=== PATIENT | female | born 1955 | race Caucasian/White ===

== ENCOUNTER 2024-11-30 17:11 | Outpatient (OUT) | payer BC, SELFPAY ==
--- NOTE | 2024-11-30 17:32 | XR_ITS ---
[facility] [place] [id number] Patient Name: ASTON EVERETT MRN: [id number] date: 1955 Sex: F Assigned Patient Location: [facility] Current Patient Location: [facility] Accession/Order Number: [id number] Exam Date: 11/30/2024 21:47 Report Date: 11/30/2024 21:48 At the request of: NENITA LARSEN Procedure: XR knee LUISITO 3V 2 views both knees Comparison right 02/07/2018 Extensive right patellofemoral degeneration. Moderate right medial joint space narrowing. Comment mild patellofemoral and medial joint space narrowing in the left. Bilateral marginal spurring. No significant joint effusion. Adequate alignment. No acute bony findings. Unremarkable soft tissues. 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 Impression dictated by: Musa Nicole M.D.11/30/2024 9:48 PM Dictation Location: [place] [id number] Electronically authenticated by: [id number] Date: 11/30/2024 21:48
== END 2024-11-30 17:12 | disposition home or self-care (01) ==
LOC: RAD 17:17
PROVIDERS: PCP Family Medicine; Visit Provider Internal Medicine Rheumatology
DX: M25.561 Pain in right knee (principal); M25.562 Pain in left knee; M17.0 Bilateral primary osteoarthritis of knee
CPT/HCPCS: 73562

== ENCOUNTER 2025-03-10 07:48 | Outpatient (OUT) | payer BC, SELFPAY ==
--- OUTSIDE RECORDS SUMMARY | 2025-03-10 08:06 | XMS_ITS | CCD ---
Author Organization [facility] Care Team Providers Care Flare Maker Name Role Phone Unavailable Primary Care Provider Unavailabl e MISC, DR HUBBARD Consulting Unavailable SHORTOMAR Primary Care Unavailable MISC, DR HUBBARD Admitting Unavailable MISC, DR HUBBARD Attending Unavailable MISC, DR HUBBARD Consulting Unavailable SHORT OMAR Primary Care Unavailable MISC, DR HUBBARD Admitting Unavailable MISC, DR HUBBARD Attending Unavailable MISC, DR HUBBARD Admitting Unavailable SHORTOMAR Primary Care Unavailable EKWOK, DR TRACY Bateman Consulting Unavailable MISC, DR HUBBARD Attending Unavailable MISC, DR HUBBARD Consulting Unavailable MD Timmy Larsen Attending Provider Shaila Cordova DO Unavailable [phone] Timmy Larsen Admitting Unavailable Timmy Larsen Attending Unavailable Shaila Cordova Primary Care Physician Shaila Cordova MD Primary Care Provider Shaila Cordova Admitting Unavailable Shaila Cordova Attending Unavailable Shaila Cordova Referring Unavailable Vilma Mantilla Attending Unavaila Vilma Bee Referring Unavaila ble Sarminjarrett, Vilma Talal Admitting Unavaila ble Jose Rafael, Vilma Hawkinsal Attending Unavaila Vilma Bee Attending Unavailnadia Cordova MD, Shaila Primary Care Provider [phone] KINGSLEY GUIDO Attending Unavailable KINGSLEY GUIDO Attending Unavailable KINGSLEY GUIDO Attending Unavailable APOLONIA JAMES Attending Unavailable NENITA LARSEN Referring Unavailable KINGSLEY GUIDO Attending Unavailable KINGSLEY GUIDO Attending Unavailable APOLONIA JAMES Attending Unavailable APOLONIA JAMES Referring Unavailable ELLE SPIVEY Attending Unavailable Allergies Allergy Classification Reported Allergen(s) Allergy Type Date of Onset Reaction(s) Facility Opioid Agonists (1 source) Codeine Drug Allergy [facility] Repository (18 sources) Cephalexin Drug Allergy 2 Other: See Comments, Unknown [facility] Work Phone: (1 source) Penicillins Drug Allergy 2 Other: See Comments [facility] Work Phone: (20 sources) Codeine; Translations: [codeine] Drug Allergy 3 [facility] (17 sources) Penicillins Drug Allergy 2 Unknown [facility] Medications Current Medications Medication Drug Class(es) Dates Sig (Normalized) Sig (Original) Acetaminophen (4 sources) Start: 11-04-2020 acetaminophen 1,000 mg, TID, Refills(s) 0, Pain Start Date: 11/04/20 Status: Ordered Repeat number: 1 Start: 11-04-2020 acetaminophen 1,000 mg, TID, Refills(s) 0 Start Date: 11/04/20 Status: Ordered Repeat number: 1 Start: 11-04-2020 acetaminophen 1,000 mg, TID, Refills(s) 0 Start Date: 11/04/20 Status: Ordered amLODIPine 5 mg oral tablet (9 sources) Dihydropyridine Calcium Channel Kendrick Start: 12-05-2024 take 1 tablet by mouth once daily amLODIPine (Norvasc) 5 MG tablet Take 5 mg by mouth Daily 12/05/2024 Active celecoxib 200 mg oral capsule (18 sources) Nonsteroidal Anti-inflammatory Drug Start: 01-09-2024 take 1 capsule by mouth in the morning celecoxib (CeleBREX) 200 MG capsule Take 200 mg by mouth in the morning and 200 mg before bedtime. 01/09/2024 Active cholecalciferol 0.05 mg oral capsule (8 sources) Vitamin D cholecalciferol (Vitamin D-3) 50 MCG (1999) capsule Vitamin D Active cyclobenzaprine hydrochloride 10 mg oral tablet (1 source) Muscle Relaxant Start: 11-04-2020 take 1 tablet by mouth at bedtime as needed for muscle spasms cyclobenzaprine 10 mg Tab 10 mg = 1 tab(s), Oral, Bedtime, PRN for spasm, # 30 tab(s), Refills(s) 0 Start Date: 11/04/20 Status: Ordered etodolac 500 mg oral tablet (8 sources) Nonsteroidal Anti-inflammatory Drug Start: 12-01-2024 take 1 tablet by mouth in the morning etodolac (Lodine) 500 MG tablet Take 500 mg by mouth in the morning and 500 mg before bedtime. 12/01/2024 Active famotidine 20 mg oral tablet (1 source) Histamine-2 Receptor Antagonist Start: 11-05-2020 take 1 tablet by mouth twice daily Pepcid 20 mg Tab 20 mg = 1 tab(s), Oral, BID, # 60 tab(s), Refills(s) 0 Start Date: 11/05/20 Status: Ordered hydroCHLOROthiazide 12.5 mg oral tablet (2 sources) Thiazide Diuretic Start: 11-04-2020 take 12.5 mg by mouth once daily hydrochlorothiazide 12.5 mg, Oral, Daily, Refills(s) 0 Start Date: 11/04/20 Status: Ordered Start: 11-04-2020 hydrochlorothi azide Oral, Daily, Refills(s) 0 Start Date: 11/04/20 Status: Ordered leflunomide 20 mg oral tablet (20 sources) Antirheumatic Agent Start: 01-16-2023 take 1 tablet by mouth once daily leflunomide (Arava) 20 MG tablet Take 20 mg by mouth Daily 01/16/2023 Active lisinopril 40 mg oral tablet (20 sources) Angiotensin Converting Enzyme Inhibitor Start: 04-16-2024 take 1 tablet by mouth once daily lisinopril 40 MG tablet Take 40 mg by mouth Daily 04/16/2024 Active Start: 07-10-2022 take 1 tablet by nolberto th in the morning lisinopril 20 MG tablet Take 20 mg by mouth in the morning. 07/10/2022 Active metFORMIN hydrochloride 500 mg oral tablet (1 source) Biguanide Start: 11-04-2020 take 500 mg by mouth once daily metformin 500 mg, Oral, Daily, Refills(s) 0 Start Date: 11/04/20 Status: Ordered Multiple Vitamins-Minerals (multivitamin with iron-minerals) liquid (8 sources) Multiple Vitamins-Minerals (multivitamin with iron-minerals) liquid Take by mouth Daily Active nabumetone 750 mg oral tablet (2 sources) Nonsteroidal Anti-inflammatory Drug Start: 11-24-2024 take 1 tablet by mouth in the morning nabumetone (Relafen) 750 MG tablet Take 750 mg by mouth in the morning and 750 mg before bedtime. 11/24/2024 Active polyethylene glycol 3350 [id number] mg / potassium chloride 1480 mg / sodium bicarbonate 5720 mg / sodium chloride 22328 mg powder for oral solution (1 source) Osmotic Laxative Start: 11-23-2024 NuLYTELY [place] oral powder for reconstitution See Instructions, 1 EA, Refill(s) 0, follow up physicians insctructions, [facility]/pharm[facility] #[id number], 172, cm, 11/23/24 8:31:00 EDT, Height/Length Dosing, 95.3, kg, 11/23/24 8:31:00 EDT, Weight Dosing Start Date: 11/23/24 Status: Ordered Quantity: 1.0 Unit: EA Repeat number: 1 Prednisolon-Moxiflo x-Bromfenac 1-0.5-0.075 % solution (17 sources) Start: 04-21-2024 Prednisolon-Moxiflo x-Bromfenac 1-0.5-0.075 % solution Indications: Cortical age-related cataract of both eyes Administer 1 drop into affected eye(s) in the morning and 1 drop at noon and 1 drop in the evening and 1 drop before bedtime. 10 mL 1 04/21/2024 Active psyllium 3400 mg powder for oral suspension (3 sources) Start: 11-23-2024 Metamucil 3.4 g/5.2 g oral powder 3.4 gram, Oral, TID, PRN for constipation, # 1,042 gram, Refills(s) 3, Pharmacy: [facility]/pharmacy #[id number], 172, cm, 11/23/24 8:31:00 EDT, Height/Length Dosing, 95.3, kg, 11/23/24 8:31:00 EDT, Weight Dosing Start Date: 11/23/24 Status: Ordered Quantity: 1042.0 Unit: g Repeat number: 4 Completed/Discontinued Medications Medication Drug Class(es) Dates Sig (Normalized) Sig (Original) alendronic acid 35 mg oral tablet (20 sources) Bisphosphonate Start: 11-19-2024 alendronate 35 mg Tab 12 EA, 0 Refill(s), PLEASE SEE ATTACHED FOR DETAILED DIRECTIONS, Refills(s) 0 Start Date: 11/19/24 Status: Ordered Repeat number: 1 Start: 12-21-2022 alendronate (F osamax) 35 MG tablet Take 35 mg by mouth every 7 (seven) days 12/21/2022 Active benzonatate (1 source) Non-narcotic Antitussive BENZONA CASTANON ORAL Take by mouth. 0 Active Comment on above: Take by mouth. betamethasone 3 mg/ml / betamethasone acetate 3 mg/ml injectable suspension (4 sources) Corticosteroid Start: 02-16-2025 End: 02-16-2025 betamethasone acetate-betamethasone sodium phosphate (Celestone) injection 6 mg Start: 02-16-2025 End: 02-16-2025 6 mg, Intra-articular, Once PRN Procedure, Starting on Sat02/16/25 at 0834, For 1 dose bromfenac 0.75 mg/ml ophthalmic solution (2 sources) Nonsteroidal Anti-inflammatory Drug Start: 12-09-2020 take 1 drop(s) into the eye(s) twice daily bromfenac (BROMSITE) 0.075 % drop Use 1 Drop in the right eye twice daily. 1 Bottle 2 12/09/2020 Active Comment on above: Use 1 Drop in the ri ght eye twice daily. clopidogrel (1 source) P2Y12 Platelet Inhibitor clopidogrel bisulfat e (CLOPIDOGREL ORAL) Take by mouth. 0 Active Comment on above: Take by mouth. difluprednate 0.5 mg/ml ophthalmic suspension (2 sources) Start: 12-09-2020 take 1 drop(s) into the eye(s) four times daily Difluprednate (DUREZOL) 0.05 % Use 1 Drop in the right eye four times daily. 1 Bottle 2 12/09/2020 Active Comment on above: Use 1 Drop in the ri ght eye four times daily. fluticasone/umeclidin /vilanter (TRELEGY ELLIPTA INHALATION) (1 source) fluticasone/umec lidin /vilanter (TRELEGY ELLIPTA INHALATION) Inhale as instructed. 0 Active Comment on above: Inhale as instructed . gatifloxacin 5 mg/ml ophthalmic solution (2 sources) Quinolone Antimicrobial Start: 12-09-2020 take 1 drop(s) into the eye(s) four times daily Gatifloxacin 0.5 % drop Use 1 Drop in the right eye four times daily. 1 Bottle 2 12/09/2020 Active Comment on above: Use 1 Drop in the ri ght eye four times daily. Memantine (1 source) A-lqxdei-O-aspartate Receptor Antagonist memantine HCl (MEMANTINE ORAL) Take by mouth. 0 Active Comment on above: Take by mouth. methylPREDNISolone (20 sources) Corticosteroid Start: 10-26-2024 End: 02-16-2025 methylPREDNISolone (Medrol Dospak) 4 MG tablets Indications: Acute gout of left ankle, unspecified cause Follow schedule on MEDROL PACK package instructions to be used as directed 21 tablet 10/26/2024 02/16/2025 Discontinued Start: 10-26-2024 methylPREDNISo lone (Medrol Dospak) 4 MG tablets Indications: Acute gout of left ankle, unspecified cause Follow schedule on MEDROL PACK package instructions to be used as directed 21 tablet 10/26/2024 Active Start: 03-28-2023 End: 10-26-2024 methylPREDNISolone (Medrol D ospak) 4 MG tablets Indications: Acute gout of left ankle, unspecified cause Follow schedule on MEDROL PACK package instructions to be used as directed 21 tablet 03/28/2023 10/26/2024 Discontinued (Therapy completed) Start: 03-28-2023 methylPREDNISo lone (Medrol Dospak) 4 MG tablets Indications: Acute gout of left ankle, unspecified cause Follow schedule on MEDROL PACK package instructions to be used as directed 21 tablet 03/28/2023 Active Pravastatin (1 source) HMG-CoA Reductase Inhibitor prav astatin sodium (PRAVASTATIN ORAL) Take by mouth. 0 Active Comment on above: Take by mouth. risperiDONE (1 source) Atypical Antipsychotic risperido ne (RISPERDAL ORAL) Take by mouth. 0 Active Comment on above: Take by mouth. venlafaxine (1 source) Serotonin and Norepinephrine Reuptake Inhibitor venlafaxine HCl (MATEO LAFAXINE ORAL) Take by mouth. 0 Active Comment on above: Take by mouth. Problems Active Problems Problem Classification Problem Date Documented Date Episodic/Chronic Cataract (2 sources) Bilateral senile combined form cataracts of eyes; Translations: [Combined forms of age-related cataract, bilateral] Chronic Diabetes mellitus without complication (7 sources) Impaired fasting glycemia 11-04-2020 Episodic Disorders of lipid metabolism (3 sources) Hyperlipidemia 11-19-2024 Chronic Diverticulosis and diverticulitis (4 sources) Diverticular disease; Translations: [Diverticula of intestine] Onset: 5 11-19-2024 Chronic Essential hypertension (4 sources) Hypertensive disorder 11-04-2020 Chronic Gout and other crystal arthropathies (2 sources) Gouty arthritis of left ankle; Translations: [Gout, unspecified] 10-26-2024 Chronic Mood disorders (4 sources) Depressive disorder 11-04-2020 Chronic Osteoarthritis (6 sources) Primary gonarthrosis, bilateral; Translations: [Bilateral primary osteoarthritis of knee] 12-17-2024 Chronic Other and unspecified benign neoplasm (5 sources) History of polyp of colon; Translations: [Personal history of colon polyps, unspecified] Onset: 5 11-19-2024 Episodic Other connective tissue disease (6 sources) Capsulitis of metatarsophalangeal joint of left foot; Translations: [Other enthesopathy of left foot and ankle] 10-26-2024 Episodic Other connective tissue disease (6 sources) Pain in right foot; Translations: [Pain in right foot] 10-26-2024 Episodic Other connective tissue disease (6 sources) Capsulitis of metatarsophalangeal joint of right foot; Translations: [Other enthesopathy of right foot and ankle] 10-26-2024 Episodic Other diseases of veins and lymphatics (5 sources) Vascular insufficiency; Translations: [Venous insufficiency (chronic) (peripheral)] 10-26-2024 Episodic Other nutritional; endocrine; and metabolic disorders (4 sources) Obesity 10-04-2014 Chronic Rheumatoid arthritis and related disease (4 sources) Rheumatoid arthritis without rheumatoid factor, multiple sites; Translations: [RA W/O RHEUMATOID FACTOR MX SITES] Onset: 1 Chronic Spondylosis; intervertebral disc disorders; other back problems (1 source) Spondylosis without myelopathy or radiculopathy, cervical region; Translations: [SPONDYLS W/O MYELO-/RADICULOP CERV] Onset: 1 Chronic Substance-related disorders (4 sources) Smoker 11-04-2020 Chronic Comment on above: Added secondary to d ocumentation in Social History. Unclassified (1 source) Rheumatoid arthritis without rheumatoid factor, multiple sites; Translations: [Rheumatoid arthritis without rheumatoid factor, multiple sites] Onset: 2 Unclassified (3 sources) Gouty arthritis of left ankle 11-19-2024 Viral infection (9 sources) Verruca plantaris; Translations: [Plantar wart] 10-26-2024 Episodic Past or Other Problems Problem Classification Problem Date Documented Da te Episodic/Chronic Spondylosis; intervertebral disc disorders; other back problems (4 sources) Radiculopathy, cervical region; Translations: [RADICULOPATHY CERVICAL REGION] Onset: 11-04-2020 Episodic Results Test Name Value Interpretation Reference Range Facility No Panel Informationon 02-16 Daly Archer MA 02/18/2025 4:51 PM L Inj/Asp: R knee on 02/16/2025 8:34 AM Indications: diagnostic evaluation Details: 22 G needle Medications: 6 mg betamethasone acetate-betamethaso ne sodium phosphate 6 (3-3) MG/ML Outcome: tolerated well, no immediate complications Consent was given by the patient. Count includes the [facility] Gastroenterology Office/Clin ic Noteon 02-10-2025 Gastroenterology Office/Clinic Note Gastroenterology Office/Clinic Note Chief Complaint Colonoscopy results HPI Staff Established patient is a(n) 69 year old female who presents today for a follow-up to Colonoscopy on 01/01/25. 3 year colon recall placed. Any blood thinners? no Any GLP-1 agonists? no History of Present Illness Reviewed HPI collected by staff Review of Systems PHQ Score Initial Depression Screen Score: 0 SCORE All systems reviewed, negative; Except for above Physical Exam Vitals & Measurements HR: 82(Peripheral) BP: 119/80 HT: 172 cm HT: 68 in WT: 94.4 kg WT: 208.116 lb BMI: 31.91 No acute distress Procedure Colonoscopy: Impression and Plan 1. Small internal hemorrhoids 2. Mild sigmoid diverticulosis 3. 6 sessile polyps in the transverse colon, 3-7 mm in size, resected with cold snare completely and retrieved. 1 clip was placed at the polypectomy site to prevent delayed bleeding, resected with cold snare completely and retrieved. 1 clip was placed at the polypectomy site to prevent delayed bleeding 4. 2 cm lipoma in the cecum 5. Normal examined terminal Recommendations: Repeat colonoscopy:: In 3 years. Pathology: Final Diagnosis ( Modified ) POLYPS, TRANSVERSE COLON, POLYPECTOMY: ??? HYPERPLASTIC POLYP. Assessment/Plan 1. History of colon polyps (Z86.0100: Personal history of colon polyps, unspecified) Colonoscopy 09/2014: TA and HP Colonoscopy 12/2024: 6 HPs, 2 cm lipoma in the rectum Repeat colonoscopy in 3 years 2. Diverticulosis (K57.90: Diverticulosis of intestine, part unspecified, without perforation or abscess without bleeding) Avoid constipation I, Tahmina Dunne, personally scribed for Vilma Mantilla on 02/05/2025 09:14:59. . Follow-up With When Contact Information Jose Rafael LINDER, Vilma Davis, GAS, MED Only if needed [address] [place] [address], [address] [phone] [phone] Additional Instructions: Problem List/Past Medical History Ongoing Diverticulosis Gouty arthritis of left ankle History of colon polyps Hyperlipidemia Impaired fasting glycemia Obesity Smoker Vascular insufficiency Verruca plantaris Historical Depressed Hypertension Impaired fasting glucose Procedure/Surgical History Colonoscopy (01/01/2025), Colonoscopy. Medications acetaminophen, 1000 mg, TID, Self Directed alendronate 35 mg Tab amLODIPine 5 mg Tab leflunomide 20 mg Tab, Not taking lisinopril 40 mg Tab, Not taking Metamucil 3.4 g/5.2 g oral powder, 3.4 gm, Oral, TID, PRN, 3 refills, Self Directed Allergies codeine Social History Tobacco - High Risk, 11/04/2020 5-9 cigarettes (between 1/4 to 1/2 pack)/day in last 30 days Tobacco Use:. Never Smokeless Tobacco Use:. Cigarettes, 02/05/2025 Family History Primary malignant neoplasm of female breast: Mother. Immunizations Vaccine Date Status Comments influenza virus vaccine, inactivated 06/08/2021 Recorded SARS-CoV-2 (COVID-19) Ad26 vaccine 12/05/2020 Recorded 2024-11-19: TPV60 influenza virus vaccine, inactivated 06/03/2020 Recorded pneumococcal 23-valent vaccine 06/19/2019 Recorded influenza virus vaccine, inactivated 06/19/2019 Recorded Normal [facility] Comment on above: Result Comment: Elec tronically Signed By: Tahmina Dunne MA\.br\Date and Time Signed: 02/05/25 09:18 EDT\.br\Electronically Co-Signed By: Vilma Mantilla MD\.br\Date and Time Co-Signed: 02/10/25 14:07 EDT Ambulatory Visit Summaryon 0 02-05-2025 Ambulatory Visit Summary Ambulatory Visi t Summary ASTON SEYMOUR :1955 Visit Date:02/05/2025 Ambulatory Visit Instructions Your Diagnosis History of colon polyps Diverticulosis Your Care Team Attending Physician - Vilma Mantilla MD Primary Care Physician - Shaila Cordova DO This Is Your Medications List Contact prescribing physician if questions or concerns acetaminophen alendronate (alendronate 35 mg Tab) amlodipine (amLODIPine 5 mg Tab) leflunomide (leflunomide 20 mg Tab) lisinopril (lisinopril 40 mg Tab) psyllium (Metamucil 3.4 g/5.2 g oral powder) Procedures Performed Colonoscopy (01/01/2025), Colonoscopy. Discharge Vitals Heart Rate (Peripheral) 82 Blood Pressure 119/80 Height 172 cm Height 68 in Weight 94.4 kg Weight 208.116 lb BMI 31.91 What to do next You Need to Schedule the Following Appointments Follow Up with Jose Rafael LINDER, Vilma Davis, [facility], [facility] When: Only if needed Where: [address] [place] [address], [address] [phone] [phone] Medications What How Much When Instructions Unchanged acetaminophen 1,000 Milligram 3 times a day Contact prescribing physician if questions or concerns Unchanged alendronate (alendronate 35 mg Tab) 12 EA, 0 Refill(s), PLEASE SEE ATTACHED FOR DETAILED DIRECTIONS Contact prescribing physician if questions or concerns Unchanged amlodipine (amLODIPine 5 mg Tab) Contact prescribing physician if questions or concerns Unchanged leflunomide (leflunomide 20 mg Tab) 90 EA, 0 Refill(s), TAKE 1 TABLET BY MOUTH EVERY DAY Contact prescribing physician if questions or concerns Unchanged lisinopril (lisinopril 40 mg Tab) 90 EA, 0 Refill(s), TAKE 1 TABLET BY MOUTH EVERY DAY Contact prescribing physician if questions or concerns Unchanged psyllium (Metamucil 3.4 g/ 5.2 g oral powder) 3.4 Gram By Mouth 3 times a day as needed for for constipation Contact prescribing physician if questions or concerns Allergies codeine Problems Ongoing - Any problem that you are currently receiving treatment for. Diverticulosis Gouty arthritis of left ankle History of colon polyps Hyperlipidemia Impaired fasting glycemia Obesity Smoker Vascular insufficiency Verruca plantaris Historical - Any problem that you are no longer receiving treatment for. Depressed Hypertension Impaired fasting glucose Patient Survey You may receive a survey via text or e-mail asking about your office visit. Please share your experience with us by completing your survey. We appreciate your feedback and thank you for choosing us for your care. Normal [facility] Reminderson 01-25-2025 Reminders Reminders -- From: Sandra Solis I To: [facility] - Reminders/Recalls; Sent: 01/25/2025 11:10:57 EDT Show up: 11/25/2027 11:10:00 EDT Subject: Colonoscopy recall Due Date/Time: 01/02/2028 11:10:00 EDT Reminder/Recall [address] Mantilla 01/01/25 [facility] Surgical Pathology Reporton 01-05-2025 Surgical Pathology Report [address] [id number]- Surgical Pathology Report Collected Date/Time: 01/01/2025 09:42 EDT Pathologist: Doug LINDER PhD, Saul Salas Received Date/Time: 01/01/2025 10:48 EDT Jose Rafael LINDER, Vilma Mantilla MD, Vilma Pathak Surgical Pathology Report - 01/05/2025 12:18 EDT - Auth (Verified) Final Diagnosis POLYPS, TRANSVERSE COLON, POLYPECTOMY: - HYPERPLASTIC POLYP. (Electronic Signature) Saul Camacho MD PhD 01/05/2025 12:18 Clinical Information History of colon polyps Pre-Op Diagnosis: History of colon polyps Procedure: Colonoscopy Post-Op Diagnosis: 1. Small internal hemorrhoids 2. Mild sigmoid diverticulosis 3. 6 sessile polyps in the transverse colon, 3-7 mm in size, resected with cold snare completely and retrieved. 1 clip was placed at the polypectomy site to prevent delayed bleeding, resected with cold snare completely and retrieved. 1 clip was placed at the polypectomy site to prevent delayed bleeding 4. 2 cm lipoma in the cecum 5. Normal examined terminal Specimen(s) Received Transverse colon polyps Gross Description Received in formalin labeled with patient name, number, and transverse colon polyps are multiple fragments of simpson/red/pink tissue ranging from less than 0.1 cm up to 0.5 cm in greatest dimension measuring in aggregate 2 x 0.8 x 0.1 cm. The specimen is entirely submitted in one cassette. (DC) DC:[facility] Microscopic Description Microscopic examination performed unless gross only specified. Quality was accessed and acceptable. This report was transcribed using voice recognition technology and might contain unintended computerized record producer errors. Normal [facility] Comment on above: Performed By: #### [id number] #### [facility] [address] [place] [address] Main OR Intraoperative Recor don 01-04-2025 Main OR Intraoperative Record Main OR Intraoperative Record IntraOp Document Type FT Summary Primary Physician: Vilma Mantilla MD Finalized Date/Time: 01/04/25 13:14:31 Pt. Name: ASTON SEYMOUR/Sex: 1955 Female Med Rec #: [id number] Physician: Vilma Mantilla MD Financial #: [id number] Pt. Type: O Room/Bed: / Admit/Disch: 01/01/25 07:56:13 - 01/01/25 23:59:59 Institution: Case Times FT Entry 1 Patient Times In Room 01/01/25 09:24:00 Out Room 01/01/25 09:45:00 Procedure Times Start 01/01/25 09:28:00 Stop 01/01/25 09:44:00 Anesthesia Times Start 01/01/25 09:24:00 Stop 01/01/25 09:45:00 Time at [facility] 01/01/25 09:31:00 Last Modified By: Moses FIERRO, Jie 01/01/25 09:52:34 Case Attendance FT Entry 1 Entry 2 Entry 3 Case Attendee Rick Alas CRNA, RN, Vanda Wallace Role Performed STUDENT WORKER Elevator Repairer Apprentice - Primary Scrub - Primary Time In 01/01/25 09:24:00 01/01/25 09:24:00 01/01/25 09:24:00 Time Out 01/01/25 09:45:00 01/01/25 09:45:00 01/01/25 09:45:00 Procedure COLONOSCOPY(.) COLONOSCOPY(.) COLONOSCOPY(.) Comments Dr. Zazueta supervising Last Modified By: Moses FIERRO, Jie Loeps RN, Jie Lopes RN, Jie 01/01/25 09:52:35 01/01/25 09:52:35 01/01/25 09:52:35 Entry 4 Entry 5 Case Attendee Dee SHELTON, Anuja Mantilla MD, Vilma Davis Role Performed Staff - Other Surgeon - Primary Time In 01/01/25 09:24:00 01/01/25 09:24:00 Time Out 01/01/25 09:45:00 01/01/25 09:45:00 Procedure COLONOSCOPY(.) COLONOSCOPY(.) Comments help in room Last Modified By: Moses FIERRO, Jie Lopes RN, Jie 01/01/25 09:52:35 01/01/25 09:52:35 Perioperative Protocols FT Pre-Care Text: Implements protective measures prior to operative or invasive procedure, confirms identity before the operative or invasive procedure, verifies operative procedure, surgical site, and laterality Entry 1 Procedure(s) COLONOSCOPY(.) Patient Identity Birthday, ID Band Verified (select at Check, Patient least 2): Participation Consents / H and P Anesthesia Consent, Operative Site N/A Verified H&P, Surgery/Procedure Marking Verified Consent Surgical Site No Laterality Verified n/a Verified Procedure Verified Yes Correct Patient Yes Position Verified Availability Equipment, Medication Prep Dry n/a Verified (If Applicable) PreOp Antibiotic No Time Out Rick Alas CRNA, Given Participants Moses FIERRO, Mana Ceron Micala E, Dee Anuja SHELTON Sarmini MD, Vilma Davis Time Out Complete 01/01/25 09:25:00 Outcomes Met? Yes Last Modified By: Jie Lopes RN 01/01/25 09:37:48 Post-Care Text: The patient is free from signs and symptoms of injury caused by extraneous objects Allergy Information FT Pre-Care Text: Verifies allergies Entry 1 Allergies Reviewed? Yes Allergies Reviewed Self/Patient With Outcomes Met? Yes Last Modified By: Jie Lopes RN 01/01/25 09:38:12 Post-Care Text: The patient received appropriate medication(s) safely administered during the perioperative period Surgical Procedures FT Entry 1 Procedure Description Procedure COLONOSCOPY Modifiers . Surgeon Description COLONOSCOPY with transverse colon polypectomy x 6, hemoclip x1 applied to site. Primary Procedure Yes Primary Surgeon Jose Rafael LINDER, Vilma Davis Start 01/01/25 09:28:00 Stop 01/01/25 09:44:00 Anesthesia Type General Surgical Service Gastroenterology Wound Class 2 - Clean-Contaminated Last Modified By: Jie Lopes RN 01/01/25 09:52:42 General Case Data FT Pre-Care Text: Classifies surgical wound, implements aseptic technique, initiates traffic control Entry 1 Case Information OR ENDO 1 FT Case Level Level 2 Wound Class 2 - Clean-Contaminated Specialty Gastroenterology ASA Class 3 Preop Diagnosis HX OF COLON POLYPS Postop Same As Preop No Postop Diagnosis Lipoma in the cecum, Outcomes Met? Yes transverse colon polyps x6, internal hemorrhoids Last Modified By: Jie Lopes RN 01/01/25 09:54:00 Post-Care Text: The patient is free from signs and symptoms of infection Skin Assessment (Pre Procedure) FT Pre-Care Text: Implements protective measures to prevent skin/ tissue injury due to thermal or mechanical sources Evaluates for signs and symptoms of physical injury to skin and tissue Entry 1 Skin Integrity Intact, [place], Warm, & Skin Abnormality No Dry Outcomes Met? Yes Last Modified By: Jie Lopes RN 01/01/25 09:40:18 Post-Care Text: The patient is free from signs and symptoms of injury caused by extraneous objects Patient Positioning FT Pre-Care Text: Identifies physical alterations that require additional precautions for procedure-specific positioning, verifies presence of prosthetics or corrective devices, positions the patient, evaluates the patient for signs and symptoms of injury as a result of positioning Entry 1 Procedure COLONOSCOP (more content not included)... Normal [facility] Discharge Instructionson Discharge Instructions Discharge Instructions ASTON SEYMOUR :1955 Visit Date:01/01/2025 Inpatient Discharge Instructions Your Care Team Admitting Physician - Vilma Mantilla MD Referring Physician - Vilma Mantilla MD Reason for Your Visit HX OF COLON POLYPS, DIVERTICULOSIS Your Diagnosis History of colon polyps Tests Performed Pathology Tissue Exam -- Results Pending -- Please visit your patient portal for your results or contact your primary care physician. This Is Your Medications List acetaminophen alendronate (alendronate 35 mg Tab) leflunomide (leflunomide 20 mg Tab) lisinopril (lisinopril 40 mg Tab) psyllium (Metamucil 3.4 g/5.2 g oral powder) [Image Removed: STOP]Stop taking these medications celecoxib (celecoxib 200 mg Cap) Procedure History Colonoscopy. Discharge Vitals Temperature (Temporal Artery) 36.8 ???C Heart Rate (Monitored) 72 Respiratory Rate 17 Blood Pressure 80/64 Height 172 cm Weight 95.3 kg BMI 32.21 What to do next Instructions From Your Doctor Event Name Event Result Discharge Activity Resume normal activities in 24 hours Discharge Restrictions No driving for 24 hrs Discharge Diet(s) Regular Call Your Doctor For Persistent or heavy bleeding Discharge Instructions Discharge Instructions New Follow Up Appointments after Discharge Follow Up with Vilma Mantilla When: Comments: Call for any problems. Where: [address] [place], [place] [address]dict [place], [address] [phone] Business (1) Medications What How Much When Instructions Next Dose Unchanged acetaminophen 1,000 Milligram 3 times a day Unchanged alendronate (alendronate 35 mg Tab) 12 EA, 0 Refill(s), PLEASE SEE ATTACHED FOR DETAILED DIRECTIONS Unchanged leflunomide (leflunomide 20 mg Tab) 90 EA, 0 Refill(s), TAKE 1 TABLET BY MOUTH EVERY DAY Unchanged lisinopril (lisinopril 40 mg Tab) 90 EA, 0 Refill(s), TAKE 1 TABLET BY MOUTH EVERY DAY Unchanged psyllium (Metamucil 3.4 g/ 5.2 g oral powder) 3.4 Gram By Mouth 3 times a day as needed for for constipation What When Comments Stop Taking celecoxib (celecoxib 200 mg Cap) take 1 capsule by mouth twice a day Test Results No qualifying data available. Allergies codeine Problems Ongoing - Any problem that you are currently receiving treatment for. Diverticulosis Gouty arthritis of left ankle History of colon polyps Hyperlipidemia Impaired fasting glycemia Obesity Smoker Vascular insufficiency Verruca plantaris Historical - Any problem that you are no longer receiving treatment for. Depressed Hypertension Impaired fasting glucose Education Materials Diverticulosis Many people have small pouches in their colon called diverticulum. The diverticulum bulge outward through weak spots in the colon. You could have one or more of these pouches in the colon. The condition of having these pouches in the colon is called diverticulosis or diverticular disease. Diverticulosis is usually diagnosed by tests to evaluate something else. For example, you may have had a colonoscopy to screen for colon cancer when the diverticulosis was found. Most people with diverticulosis do not have any discomfort or problems. If symptoms develop, they may include mild cramps, bloating, and constipation. A complication of this condition is called diverticulitis. This is when the diverticulum become inflamed and infected. How to treat diverticulosis: Increasing the amount of fiber in the diet may reduce symptoms of diverticulosis and prevent complications such as diverticulitis (infected diverticuli). Fiber keeps stool soft and lowers pressure inside the colon so that bowel contents can move through easily. You should eat 20 to 35 grams of fiber each day. The table below shows the amount of fiber in some foods that you can easily add to your diet. Adding fiber slowly may decrease the bloating and fullness sometimes felt with an immediate high fiber diet. The doctor may also recommend taking a fiber product such as Citrucel or Metamucil once a day. In the past people with diverticulosis were to avoid nuts, corn, and seeds. This has not been found to be true. If you find that certain foods create cramping or bloating, avoid that food. Foods high in fiber include: Fresh fruits, fresh vegetables, legumes (beans), whole wheat bread, bran muffins or cereal, and nuts. See the table below for examples of high fiber foods. Remember, your goal is 20-35 grams per day. Amount of fiber in different foods Food Serving Grams of fiber Fruits Apple (with skin) 1 medium apple 4.4 Banana 1 medium banana 3.1 Oranges 1 orange 3.1 Prunes 1 cup, pitted 12.4 Juices Apple, unsweetened, w/added ascorbic acid 1 cup 0.5 Grapefruit, white, canned, sweetened 1 cup 0.2 Grape, unsweetened, w/added ascorbic acid 1 cup (more content not included)... Normal [facility] Comment on above: Result Comment: Elec tronically Signed By: Daniel FIERRO, Yuko\.br\Date and Time Signed: 01/01/25 09:58 EDT Inpatient Patient Summaryon 01-01-2025 Inpatient Patient Summary Inpatient Patient Summary [place] [id number] [facility] Clinical Discharge Instructions PERSON INFORMATION Name: ASTON SEYMOUR [facility]#:[id number] PHYSICIANS Admitting Physician: Vilma Mantilla MD Attending Physician: Vilma Mantilla MD PCP: Shaila Cordova DO Discharge Diagnosis: History of colon polyps Comment: PATIENT EDUCATION INFORMATION Instructions: Medication Leaflets: Follow up: MEDICATION LIST Medications to Continue with No Changes Other Medications acetaminophen 1,000 Milligram 3 times a day. alendronate (alendronate 35 mg Tab) 12 EA, 0 Refill(s), PLEASE SEE ATTACHED FOR DETAILED DIRECTIONS., Responsible Provider: SHAILA CORDOVA leflunomide (leflunomide 20 mg Tab) 90 EA, 0 Refill(s), TAKE 1 TABLET BY MOUTH EVERY DAY., Responsible Provider: GALILEA AHUMADA to treat RA lisinopril (lisinopril 40 mg Tab) 90 EA, 0 Refill(s), TAKE 1 TABLET BY MOUTH EVERY DAY., Responsible Provider: SHAILA CORDOVA psyllium (Metamucil 3.4 g/5.2 g oral powder) 3.4 Gram By Mouth 3 times a day as needed for constipation. Refills: 3. No Longer Take the Following Medications celecoxib (celecoxib 200 mg Cap) take 1 capsule by mouth twice a day. Comment: Alayna [facility] Main OR PACU II Recordon Main OR PACU II Record Main OR PACU II Record PACU Phase II Document Type FT Summary Primary Physician: Vilma Mantilla MD Finalized Date/Time: 01/01/25 10:17:23 Pt. Name: ASTON SEYMOUR Josue Andino/Sex: 1955 Female Med Rec #: [id number] Physician: Vilma Mantilla MD Financial #: [id number] Pt. Type: O Room/Bed: / Admit/Disch: 01/01/25 07:56:13 - Institution: Case Times PACU II FT Pre-Care Text: Identifies barriers to communication and implements measures to provide psychological support and determines knowledge level Develops individualized plan of care, and ensures continuity of care Maintains patient's dignity and privacy, and maintains patient confidentiality Identifies and reports philosophical, cultural, and spiritual beliefs and values Identifies individual values and wishes concerning care administers prescribed antibiotic therapy and immunizing agents as ordered, Evaluates postoperative tissue perfusion Implements thermoregulation measures, and monitors body temperature Evaluates postoperative respiratory status Evaluates postoperative cardiac status Evaluates postoperative neurological status Assesses pain control, collaborated in initiating patient-controlled analgesia and implements alternative methods of pain control Verifies allergies, administers prescribed medications and solutions, evaluates response to medications Entry 1 In PACU II 01/01/25 09:47:00 Discharge from PACU 01/01/25 10:12:00 II Outcomes Met? Yes Last Modified By: Yuko Sanchez RN 01/01/25 10:17:19 Post-Care Text: The patient demonstrates knowledge of the expected response to the operative or invasive procedure The patient's care is consistent with the individualized perioperative plan of care The patient's right to privacy is maintained The patient's value system, lifestyle, ethnicity, and culture are considered, respected, and incorporated into the perioperative plan of care The patient participates in decisions affecting his or her perioperative plan of care. The patient is free from signs and symptoms of infection The patient has wound/tissue perfusion consistent with or improved from baseline levels established preoperatively The patient is at or returning to normothermia at the conclusion of the immediate postoperative period The patient's respiratory function is consistent with or improved from baseline levels established preoperatively The patient's cardiovascular status is consistent with or improved from baseline levels established preoperatively The patient's neurological status is consistent with or improved from baseline levels established preoperatively The patient demonstrates and/or reports adequate pain control throughout the perioperative period The patient received appropriate medication(s), safely administered during the perioperative period Finalized By: Yuko Sanchez RN Document Signatures Signed By: Yuko Sanchez RN 01/01/25 10:17 Normal [facility] Main OR Preoperative Recordo n 01-01-2025 Main OR Preoperative Record Main OR Preoperative Record Holding Area Document Type FT Summary Primary Physician: Vilma Mantilla MD Finalized Date/Time: 01/01/25 08:05:36 Pt. Name: KIMMY SEYMOURNadia Salas D.O.B./Sex: 1955 Female Med Rec #: [id number] Physician: Vilma Mantilla MD Financial #: [id number] Pt. Type: O Room/Bed: / Admit/Disch: 01/01/25 07:56:13 - Institution: Case Times Holding FT Pre-Care Text: Verifies consent for planned procedure, identifies individual values and wishes concerning care, includes family members in perioperative teaching Secures patient's records' belongings, and valuables, maintains patient's dignity and privacy, and maintains patient confidentiality Entry 1 In Holding 01/01/25 08:04:00 Outcomes Met? Yes Last Modified By: Jie Lopes RN 01/01/25 08:04:33 Post-Care Text: The patient participates in decisions affecting his or her perioperative plan of care The patient's right to privacy is maintained Surgery Checklist FT Entry 1 Patient Birthday, ID Band Procedure History and Physical, Identification: Check, Patient Verification: Surgical Consent, With Participation Patient NPO after Midnight: No Date/Time: 01/01/25 04:45:00 Personal Items: Glasses Limitations: vision Complaints of Pain: No Pain Comment: denies Operative Site n/a Availability Equipment Marking: Verified: Does Patient Smoke Yes If Yes to Smoking. half ppd Cigars or Cigarettes. How much per day? Patient states Yes Comment - Adult Raymundo postop adult Supervision supervision available Case Cancelled in No Holding Area see comments below for reason Last Modified By: Jie Lopes RN 01/01/25 08:05:32 General Comments: PT. NPO since bowel prep finished at 0445/AW RN Finalized By: Jie Lopes RN Document Signatures Signed By: Jie Lopes RN 01/01/25 08:05 Normal [facility] Outpatient Surgery Discharge Instructionon 01-01-2025 Outpatient Surgery Discharge Instruction Outpatient Surgery Discharge Instruction [place] [id number] Patient Discharge Instructions PERSON INFORMATION Name: ASTON SEYMOUR Date of : 1955 Current Date: 01/01/2025 09:19:58 PHYSICIANS Admitting Physician: Jose Rafael LINDER, Vilma Davis Discharge Diagnosis: History of colon polyps ASTON SEYMOUR has been given the following list of follow-up instructions, prescriptions, and patient education materials: PATIENT FOLLOW-UP INFORMATION Diet: Regular Discharge Activity: Resume normal activities in 24 hours Discharge Restrictions: No driving for 24 hrs Call Your Doctor For: Persistent or heavy bleeding IF UNABLE TO CONTACT YOUR PHYSICIAN AND YOU FEEL IT IS AN EMERGENCY, GO TO THE NEAREST EMERGENCY ROOM OR CALL 911 IMARGUERITE TERESA L, have received the attached patient education materials/instructi ons and have verbalized understanding: May we do a follow up call? Yes No I was present when discharge instructions were given Patient Signature Date Clinican/Nurse Signature Date Follow up: Pharmacy Information: You may receive a survey from [employer] asking you to rate your care experience. Your feedback is important and will help us understand what we do well and how we can improve the quality of care we provide to you, your loved ones and our community. It???s an honor to serve you. Thank you for choosing [facility] HERE ARE THE MEDICATION CHANGES THAT OCCURRED DURING YOUR HOSPITAL STAY Medications to Continue with No Changes Other Medications acetaminophen 1,000 Milligram 3 times a day. alendronate (alendronate 35 mg Tab) 12 EA, 0 Refill(s), PLEASE SEE ATTACHED FOR DETAILED DIRECTIONS., Responsible Provider: SHAILA CORDOVA leflunomide (leflunomide 20 mg Tab) 90 EA, 0 Refill(s), TAKE 1 TABLET BY MOUTH EVERY DAY., Responsible Provider: GALILEA AHUMADA to treat RA lisinopril (lisinopril 40 mg Tab) 90 EA, 0 Refill(s), TAKE 1 TABLET BY MOUTH EVERY DAY., Responsible Provider: SHAILA CORDOVA psyllium (Metamucil 3.4 g/5.2 g oral powder) 3.4 Gram By Mouth 3 times a day as needed for constipation. Refills: 3. No Longer Take the Following Medications celecoxib (celecoxib 200 mg Cap) take 1 capsule by mouth twice a day. PATIENT EDUCATION INFORMATION Instructions: Medication Leaflets: Normal [facility] BD Bone Density DEXAon 11-27 BD Bone Density DEXA Exam Date/Time: 11/27/2024 08:49 EDT Reason for Exam: M85.89 Report IMPRESSION: OSTEOPENIA. The 10 year probability (FRAX) of a major osteoporotic fracture based on the femoral neck bone marrow density is: 16%, and hip fracture 2.8%. The NOF/ISD guideline recommend FRAX for postmenopausal patients (not on treatment) if the lowest T-score for Spine(L1-L4), Femur Neck or Femur Total indicates low bone density (T score -1.0 to -2.5, osteopenia). EXAM: BD Bone Density DEXA CLINICAL HISTORY: M85.89. COMPARISON: 11/23/2022 COMMENTS: The lumbar spine and both hips were scanned. The mean bone mineral density from L1 to L4 is 1.331 g/cm2 and this value is 1.3 standard of deviation below the standard reference value for a young adult. Bone mineral density of the left femoral neck is 0.870 g/cm2 and this value is -1.2 standard of deviation below the standard reference value. Bone mineral density of the right femoral neck is 0.895 g/cm2 and this value is -1.0 standard of deviation below the standard reference value. The lowest value(s) meet WHO criteria for osteopenia. When compared to the prior exam, there has been a 3.4% increase in bone mineral density from L1 to L4, a 13.7% increase in bone mineral density of the left femoral neck, and a 17.9% increase in bone mineral density of the right femoral neck. RECOMMENDATIONS: 1. All patients should optimize her calcium and vitamin D intake. 2. Consider FDA-approved medical therapies in postmenopausal women and minimal age 50 years and older, based on the following: - hip or vertebral (clinical or morphometric) fracture. - T-score less than or equal to -2.5 at the femoral neck or spine after the appropriate evaluation to exclude secondary causes. - Low bone density (T score between -1.0 and -2.5 at the femoral neck or spine) and a 10 year probability of hip fracture greater than or equal to 3% or a 10-year probability of a major osteoporosis-relate d fracture greater than or equal to 20% based on FRAX calculation. - Clinician judgment and/or patient preferences may indicate treatment for people with 10 year fracture probability above or below these levels. - Further guidance on treatment can be found at the National Osteoporosis Foundation's website: bonesource.org 3. Patients with diagnosis of osteoporosis or high risk for fracture should have Report regular bone mineral density tests. For patients eligible for Medicare, routine testing is allowed once every 2 years. Testing frequency can be increased to 1 year for patient's history of rapidly progressing disease, those who are receiving or discontinuing medical therapy to restore bone mass or have additional risk factors. Ordering Provider: Shaila Cordova FINAL REPORT Dictated: 11/27/2024 11:15 am Cesar March DO Signed (Electronic Signature): 11/27/2024 11:15 am Signed by: Cesar March DO Transcribed by: SYLVIE Technologist: THALIA Normal [facility] MA Mamm Screen w/CAD if perf and 3D Bilon 11-27-2024 MA Mamm Screen w/CAD if perf and 3D Chi Exam Date/Time: 11/27/2024 09:00 EDT Reason for Exam: Z12.31 Report IMPRESSION: BIRADS 2 BENIGN FINDINGS, NORMAL INTERVAL FOLLOW-UP Follow-up: 12 MONTH RECALL Category C - The breasts are heterogeneously dense, which may obscure small masses. Vascular calcifications: Absent. EXAM: MA Mamm Screen w/CAD if perf and 3D Chi DATE: 11/27/2024 8:18 AM CLINICAL HISTORY: Z12.31. COMPARISONS: 11/23/2022 and 08/13/2014. TECHNIQUE: Routine full-field digital mammograms and 3D breast tomosynthesis were obtained of both breasts. FINDINGS: There are no developing densities, suspicious microcalcifications , or areas of architectural distortion identified on the current study. No significant changes are identified from the prior studies, given differences in technique and positioning. Stable asymmetries. Dense Breast: Yes. CAD analysis was performed and used in the interpretation. Board Certified Radiologists. Accredited by the ACR and FDA. MAMMOGRAPHY IS VERY IMPORTANT TO YOUR HEALTH. THE CURRENT [employer] OF [employer] AND N[employer] COMPREHENSIVE [employer]WORK GUIDELINES RECOMMENDS ANNUAL MAMMOGRAPHY BEGINNING AT AGE 40. THIS FACILITY UTILIZES A REMINDER SYSTEM TO ENSURE ALL PATIENTS RECEIVE REMINDER NOTIFICATIONS AT THE APPROPRIATE TIME BASED ON THE RECOMMENDATIONS OF THIS EXAM. Report Ordering Provider: Shaila Cordova FINAL REPORT Dictated: 11/27/2024 1:29 pm Josue Cespedes MD Signed (Electronic Signature): 11/27/2024 1:29 pm Signed by: Josue Cespedes MD Transcribed by: SYLVIE Technologist: BEAU Assessment: BI-RADS Category 2-Benign finding Recommendation: Normal interval follow-up Normal [facility] Ambulatory Visit Summaryon 0 11-23-2024 Ambulatory Visit Summary Ambulatory Visi t Summary ASTON SEYMOUR :1955 Visit Date:11/23/2024 Ambulatory Visit Instructions Your Diagnosis History of colon polyps Diverticulosis Your Care Team Attending Physician - Jose Rafael LINDER, iVlma Davis Primary Care Physician - Shaila Cordova DO This Is Your Medications List polyethylene glycol 3350 with electrolytes (NuLYTELY [place] oral powder for reconstitution) psyllium (Metamucil 3.4 g/5.2 g oral powder) Contact prescribing physician if questions or concerns acetaminophen alendronate (alendronate 35 mg Tab) celecoxib (celecoxib 200 mg Cap) leflunomide (leflunomide 20 mg Tab) lisinopril (lisinopril 40 mg Tab) Procedures Performed Colonoscopy. Discharge Vitals Heart Rate (Peripheral) 80 Blood Pressure 127/84 Height 172 cm Height 68 in Weight 95.3 kg Weight 210.1 lb BMI 32.21 What to do next Scheduled Follow-Up Appointments Saturday 8:15 AM EDT Where: FT Mammography Saturday 8:30 AM EDT Where: FT Bone Density Medications What How Much When Instructions New polyethylene glycol 3350 with electrolytes (NuLYTELY [place] oral powder for reconstitution) See instructions follow up physicians insctructions Pickup at [facility]/pharmacy #[id number] New psyllium (Metamucil 3.4 g/ 5.2 g oral powder) 3.4 Gram By Mouth 3 times a day as needed for for constipation Refills: 3 Pickup at [facility]/pharmacy #[id number] Unchanged acetaminophen 1,000 Milligram 3 times a day Contact prescribing physician if questions or concerns Unchanged alendronate (alendronate 35 mg Tab) 12 EA, 0 Refill(s), PLEASE SEE ATTACHED FOR DETAILED DIRECTIONS Contact prescribing physician if questions or concerns Unchanged celecoxib (celecoxib 200 mg Cap) take 1 capsule by mouth twice a day Contact prescribing physician if questions or concerns Unchanged leflunomide (leflunomide 20 mg Tab) 90 EA, 0 Refill(s), TAKE 1 TABLET BY MOUTH EVERY DAY Contact prescribing physician if questions or concerns Unchanged lisinopril (lisinopril 40 mg Tab) 90 EA, 0 Refill(s), TAKE 1 TABLET BY MOUTH EVERY DAY Contact prescribing physician if questions or concerns Pharmacy Information [id number]: [address], [place] [phone] Allergies codeine Problems Ongoing - Any problem that you are currently receiving treatment for. Diverticulosis Gouty arthritis of left ankle History of colon polyps Hyperlipidemia Impaired fasting glycemia Obesity Smoker Vascular insufficiency Verruca plantaris Historical - Any problem that you are no longer receiving treatment for. Depressed Hypertension Impaired fasting glucose Patient Survey You may receive a survey via text or e-mail asking about your office visit. Please share your experience with us by completing your survey. We appreciate your feedback and thank you for choosing us for your care. Alayna Ross [facility] Gastroenterology Office/Clin ic Noteon 11-23-2024 Gastroenterology Office/Clinic Note Gastroenterology Office/Clinic Note Chief Complaint Colonoscopy HPI Staff New patient is a(n) 69 year old female who was referred by Dr. Cordova for a surveillance colonoscopy. Denies Fhx colon cancer/diseases. Denies previous EGD. Denies n/v/d, abd pain, bloody or mucus stools. Blood thinners? no GLP-1 agonists? no C/o constipation Advised to get prunes, kiwi fruits and stay well hydrated Advised to use MiraLAX and titrate to have 1-2 bowel movements every day History of Present Illness Reviewed HPI collected by staff Review of Systems PHQ Score Initial Depression Screen Score: 0 SCORE All systems reviewed, negative; Except for above Physical Exam Vitals & Measurements HR: 80(Peripheral) BP: 127/84 HT: 172 cm HT: 68 in WT: 95.3 kg WT: 210.1 lb BMI: 32.21 No acute distress Procedure Colonoscopy 10/04/14 w/Dr. Posey: DIAGNOSIS: Myochosis and diverticulosis as described above, 3 polyps as described above status post snare polypectomy and status post random biopsies from the right colon and rectum. Pathology: Final Diagnosis (Verified) A: RECTUM, BIOPSY - COLONIC MUCOSA WITH NO SIGNIFICANT HISTOPATHOLOGIC FINDING B: RIGHT COLON, BIOPSY - COLONIC MUCOSA WITH NO SIGNIFICANT HISTOPATHOLOGIC FINDING. C: TRANSVERSE COLON, BIOPSY - FRAGMENTS OF ADENOMATOUS POLYP D: SIGMOID COLON, BIOPSY: - TUBULAR ADENOMA - HYPERPLASTIC POLYP Assessment/Plan 1. History of colon polyps (Z86.0100: Personal history of colon polyps, unspecified) Colonoscopy 09/2014, TA and HP Schedule Colonoscopy to evaluate. Discussed risks such as bleeding, injury and perforation as well as benefits. Patient agreeable. 2. Diverticulosis (K57.90: Diverticulosis of intestine, part unspecified, without perforation or abscess without bleeding) I, Tahmina Dunne, personally scribed for Vilma Mantilla on 11/23/2024 08:39:30. . Documentation recorded by Tahmina Dunne, accurately reflects the services I performed and decisions made by me. Vilma Mantilla MD Follow-up No qualifying data available Problem List/Past Medical History Ongoing Diverticulosis Gouty arthritis of left ankle History of colon polyps Hyperlipidemia Impaired fasting glycemia Obesity Smoker Vascular insufficiency Verruca plantaris Historical Depressed Hypertension Impaired fasting glucose Procedure/Surgical History Colonoscopy. Medications acetaminophen, 1000 mg, TID alendronate 35 mg Tab celecoxib 200 mg Cap leflunomide 20 mg Tab lisinopril 40 mg Tab Metamucil 3.4 g/5.2 g oral powder, 3.4 gm, Oral, TID, PRN, 3 refills NuLYTELY [place] oral powder for reconstitution, See Instructions Allergies codeine Social History Tobacco - High Risk, 11/04/2020 5-9 cigarettes (between 1/4 to 1/2 pack)/day in last 30 days Tobacco Use:. Never Smokeless Tobacco Use:. Cigarettes, 11/23/2024 Family History Primary malignant neoplasm of female breast: Mother. Immunizations Vaccine Date Status Comments influenza virus vaccine, inactivated 06/08/2021 Recorded SARS-CoV-2 (COVID-19) Ad26 vaccine 12/05/2020 Recorded 2024-11-19: TPV60 influenza virus vaccine, inactivated 06/03/2020 Recorded pneumococcal 23-valent vaccine 06/19/2019 Recorded influenza virus vaccine, inactivated 06/19/2019 Recorded Normal [facility] Comment on above: Result Comment: Elec tronically Signed By: Jose Rafael LINDER, Vilma Davis\.br\Date and Time Signed: 11/23/24 08:53 EDT\.br\Electronically Co-Signed By: Tahmina Dunne MA\Date and Time Co-Signed: 11/23/24 08:46 EDT CBC (INCLUDES DIFF/PLT)on Basophils (Bld) [#/Vol] 0.049 10*3/uL Normal 0-200 [facility] Comment on above: Performed By: #### 1 0231, 809, 6399 #### [facility] of [address], [address] [place] [address] Clam Grower: Jesús Camp MD Basophils/100 WBC (Bld) 0.7 % Normal [facility] Comment on above: Performed By: #### 1 0231, 809, 6399 #### [facility] of [place] [address] Clam Grower: Jesús Camp MD Eosinophils (Bld) [#/Vol] 0.126 10*3/uL Normal 15-500 [facility] Comment on above: Performed By: #### 1 0231, 809, 6399 #### [facility] of [address], [address] [place] [address] Clam Grower: Jesús Camp MD Eosinophils/100 WBC (Bld) 1.8 % Normal [facility] Comment on above: Performed By: #### 1 0231, 809, 6399 #### [facility] of [place] [address] Clam Grower: Jesús Camp MD Erythrocyte distribution width (RBC) [Ratio] 12.9 % Normal 11.0-15.0 [facility] Comment on above: Performed By: #### 1 0231, 809, 6399 #### [facility] of [place] [address] Clam Grower: Jesús Camp MD Hematocrit (Bld) [Volume fraction] 42.9 % Normal 35.0-45.0 [facility] Comment on above: Performed By: #### 1 0231, 809, 6399 #### [facility] of [place] [id number] Clam Grower: Jesús Camp MD Hemoglobin (Bld) [Mass/Vol] 13.9 g/dL Normal 11.7-15.5 [facility] Comment on above: Performed By: #### 1 023, 809, 6399 #### [facility] of [place] [address] Clam Grower: Jesús Camp MD Lymphocytes (Bld) [#/Vol] 2.345 10*3/uL Normal 850-3900 [facility] Comment on above: Performed By: #### 1 023, 80, 6399 #### [facility] of [place] [address] Clam Grower: Jesús Camp MD Lymphocytes/100 WBC (Bld) 33.5 % Normal [facility] Comment on above: Performed By: #### 1 230, 80, 6399 #### [facility] of [place] [address] Clam Grower: Jesús Camp MD MCH (RBC) [Entitic mass] 29.4 pg Normal 27.0-33.0 [facility] Comment on above: Performed By: #### 1 023, 80, 6399 #### [facility] of [place] [address] Clam Grower: Jesús Camp MD MCHC (RBC) [Mass/Vol] 32.4 g/dL Normal 32.0-36.[address] [facility] Comment on above: Result Comment: For adults, a slight decrease in the calculated MCHC value (in the range of 30 to 32 g/dL) is most likely not clinically significant; however, it should be interpreted with caution in correlation with other red cell parameters and the patient's clinical condition. Performed By: #### 1 023, 809, 6399 #### [facility] of [place] [address] Clam Grower: Jesús Camp MD MCV (RBC) [Entitic vol] 90.7 fL Normal 80.0-100.0 [facility] Comment on above: Performed By: #### 1 0231, 809, 6399 #### [facility] [place] [address] Clam Grower: Jesús Camp MD Monocytes (Bld) [#/Vol] 0.728 10*3/uL Normal 200-950 [facility] Comment on above: Performed By: #### 1 0231, 809, 6399 #### [facility] [place] [address] Clam Grower: Jesús Camp MD Monocytes/100 WBC (Bld) 10.4 % Normal [facility] Comment on above: Performed By: #### 1 0231, 809, 6399 #### [facility] [place] [address] Clam Grower: Jesús Camp MD Neutrophils (Bld) [#/Vol] 3.752 10*3/uL Normal 6069-7786 [facility] Comment on above: Performed By: #### 1 0231, 809, 6399 #### [facility] of [place] [address] Clam Grower: Jesús Camp MD Neutrophils/100 WBC (Bld) 53.6 % Normal [facility] Comment on above: Performed By: #### 1 0231, 809, 6399 #### [facility] [place] [address] Clam Grower: Jesús Camp MD Platelet mean volume (Bld) [Entitic vol] 11.2 fL Normal 7.5-12.5 [facility] Comment on above: Performed By: #### 1 0231, 809, 6399 #### [facility] of [place] [address] Clam Grower: Jesús Camp MD Platelets (Bld) [#/Vol] 227 10*3/uL Normal 140-400 [facility] Comment on above: Performed By: #### 1 0231, 809, 6399 #### [facility] of [address], [address] [place] [address] Clam Grower: Jesús Camp MD RBC (Bld) [#/Vol] 4.73 10*6/uL Normal 3.80-5.10 [facility] Comment on above: Performed By: #### 1 0231, 809, 6399 #### [facility] of [address], [address] [place] [address] Clam Grower: Jesús Camp MD WBC (Bld) [#/Vol] 7.0 10*3/uL Normal 3.8-10.8 [facility] Comment on above: Performed By: #### 1 0231, 809, 6399 #### [facility] of [place] [address] Clam Grower: Jesús Camp MD COMPREHENSIVE METABOLIC PANE [facility] 09-10-2024 Albumin [Mass/Vol] 4.4 g/dL Normal 3.6-5.1 [facility] Comment on above: Order Comment: FASTI NG:YES FASTING: YES Performed By: #### 1 0231, 809, 6399 #### [facility] of [place] [address] Clam Grower: Jesús Camp MD Albumin/Globulin [Mass ratio] 1.9 {ratio} Normal 1.0-2.5 [facility] Comment on above: Order Comment: FASTI NG:YES FASTING: YES Performed By: #### 1 0231, 809, 6399 #### [facility] of [place] [address] Clam Grower: Jesús Camp MD ALP [Catalytic activity/Vol] 104 U/L Normal 37-153 [facility] Comment on above: Order Comment: FASTI NG:YES FASTING: YES Performed By: #### 1 0231, 809, 6399 #### [facility] of [address], [address] [place] [address] Clam Grower: Jesús Camp MD ALT [Catalytic activity/Vol] 13 U/L Normal 6-29 [facility] Comment on above: Order Comment: FASTI NG:YES FASTING: YES Performed By: #### 1 0231, 809, 6399 #### [facility] [address], [address] [place] [address] Clam Grower: Jesús Camp MD AST [Catalytic activity/Vol] 13 U/L Normal 10-35 [facility] Comment on above: Order Comment: FASTI NG:YES FASTING: YES Performed By: #### 1 0231, 809, 6399 #### [facility] [address], [address] [place] [address] Clam Grower: Jesús Camp MD Bilirubin [Mass/Vol] 0.2 mg/dL Normal 0.2-1.2 [facility] Comment on above: Order Comment: FASTI NG:YES FASTING: YES Performed By: #### 1 0231, 809, 6399 #### [facility] [address], [address] [place] [address] Clam Grower: Jesús Camp MD BUN/CREATININE RATIO SEE NOTE: Normal 6-22 [facility] Comment on above: Order Comment: FASTI NG:YES FASTING: YES Result Comment: Not Reported: BUN and Creatinine are within reference range. Performed By: #### 1 0231, 809, 6399 #### [facility] [address], [address] [place] [address] Clam Grower: Jesús Camp MD Calcium [Mass/Vol] 9.1 mg/dL Normal 8.6-10.4 [facility] Comment on above: Order Comment: FASTI NG:YES FASTING: YES Performed By: #### 1 0231, 809, 6399 #### [facility] [address], [address] [place] [address] Clam Grower: Jesús Camp MD Chloride [Moles/Vol] 107 mmol/L Normal 98-110 [facility] Comment on above: Order Comment: FASTI NG:YES FASTING: YES Performed By: #### 1 0231, 809, 6399 #### [facility] [address], [address] [place] [address] Clam Grower: Jesús Camp MD CO2 [Moles/Vol] 26 mmol/L Normal 20-32 [facility] Comment on above: Order Comment: FASTI NG:YES FASTING: YES Performed By: #### 1 0231, 809, 6399 #### [facility] [address], [address] [place] [address] Clam Grower: Jesús Camp MD Creatinine [Mass/Vol] 0.70 mg/dL Normal 0.50-1.[address] [facility] Comment on above: Order Comment: FASTI NG:YES FASTING: YES Performed By: #### 1 0231, 809, 6399 #### [facility] [address], [address] [place] [address] Clam Grower: Jesús Camp MD GFR/1.73 sq M.predicted among non-blacks MDRD (S/P/Bld) [Vol rate/Area] 95 mL/min/{1.73_m2} Normal > OR = 60 [facility] Comment on above: Order Comment: FASTI NG:YES FASTING: YES Performed By: #### 1 0231, 809, 6399 #### [facility] [place] [address] Clam Grower: Jesús Camp MD Globulin (S) [Mass/Vol] 2.3 g/dL Normal 1.9-3.7 [facility] Comment on above: Order Comment: FASTI NG:YES FASTING: YES Performed By: #### 1 0231, 809, 6399 #### [facility] [address], [address] [place] [address] Clam Grower: Jeúss Camp MD Glucose [Mass/Vol] 89 mg/dL Normal 65-99 [facility] Comment on above: Order Comment: FASTI NG:YES FASTING: YES Result Comment: Fasting reference interval Performed By: #### 1 0231, 809, 6399 #### [facility] [address], [address] [place] [address] Clam Grower: Jesús Camp MD Potassium [Moles/Vol] 4.3 mmol/L Normal 3.5-5.3 [facility] Comment on above: Order Comment: FASTI NG:YES FASTING: YES Performed By: #### 1 0231, 809, 6399 #### [facility] [place] [address] Clam Grower: Jesús Camp MD Protein [Mass/Vol] 6.7 g/dL Normal 6.1-8.1 [facility] Comment on above: Order Comment: FASTI NG:YES FASTING: YES Performed By: #### 1 0231, 809, 6399 #### [facility] [place] [address] Clam Grower: Jesús Camp MD Sodium [Moles/Vol] 141 mmol/L Normal 135-146 [facility] Comment on above: Order Comment: FASTI NG:YES FASTING: YES Performed By: #### 1 0231, 809, 6399 #### [facility] [place] [address] Clam Grower: Jesús Camp MD Urea nitrogen [Mass/Vol] 17 mg/dL Normal 7-25 [facility] Comment on above: Order Comment: FASTI NG:YES FASTING: YES Performed By: #### 1 0231, 809, 6399 #### [facility] [place] [address] Clam Grower: Jesús Camp MD SED RATE BY MODIFIED LUCHO Yoo 09-10-2024 SED RATE BY MODIFIED WESTNATANREN 17 mm/h Normal < OR = 30 [facility] Comment on above: Performed By: #### 1 0231, 809, 6399 #### [facility] [place] [address] Clam Grower: Jesús Camp MD CBC (INCLUDES DIFF/PLT)on Basophils (Bld) [#/Vol] 0.021 10*3/uL Normal 0-200 [facility] Comment on above: Performed By: #### 1 230, 6399 #### [facility] [address] [place] [address] Clam Grower: Winnie Franco #### [id number] #### [facility] [address], [address] [place] [address] Clam Grower: Jesús Camp MD Basophils/100 WBC (Bld) 0.3 % Normal [facility] Comment on above: Performed By: #### 1 0231, 6399 #### [facility] [address] [place], [place] [id number] Clam Grower: Winnie Franco #### [id number] #### [facility] [address], [address] [place] [address] Clam Grower: Jesús Camp MD Eosinophils (Bld) [#/Vol] 0.128 10*3/uL Normal 15-500 [facility] Comment on above: Performed By: #### 1 023, 6399 #### [facility] [address] [place] [address] Clam Grower: Winnie Franco #### [id number] #### [facility] [place] [address] Clam Grower: Jesús Camp MD Eosinophils/100 WBC (Bld) 1.8 % Normal [facility] Comment on above: Performed By: #### 1 230, 6399 #### [facility] [address] [place] [address] Clam Grower: Winnie Franco #### [id number] #### [facility] [address], [address] [place] [address] Clam Grower: Jesús Camp MD Erythrocyte distribution width (RBC) [Ratio] 13.7 % Normal 11.0-15.0 [facility] Comment on above: Performed By: #### 1 023, 6399 #### [facility] [address] [place], [place] [id number] Clam Grower: Winnie Franco #### [id number] #### [facility] [place] [address] [place] , [address] [place] [address] Clam Grower: Jesús Camp MD Hematocrit (Bld) [Volume fraction] 42.4 % Normal 35.0-45.0 [facility] Comment on above: Performed By: #### 1 0231, 6399 #### [facility] [address] [place] [address] Clam Grower: Winnie Franco #### [id number] #### [facility] [place] [address] [place] , [address] [place] [address] Clam Grower: Jesús Camp MD Hemoglobin (Bld) [Mass/Vol] 14.3 g/dL Normal 11.7-15.5 [facility] Comment on above: Performed By: #### 1 0231, 6399 #### [facility] [address] [place] [address] Clam Grower: Winnie Franco #### [id number] #### [facility] [place] [address] [place] , [address] [place] [address] Clam Grower: Jesús Camp MD Lymphocytes (Bld) [#/Vol] 2.535 10*3/uL Normal 850-3900 [facility] Comment on above: Performed By: #### 1 0231, 6399 #### [facility] [address] [place] [address] Clam Grower: Winnie Franco #### [id number] #### [facility] [place] [address] [place] , [address] [place] [address] Clam Grower: Jesús Camp MD Lymphocytes/100 WBC (Bld) 35.7 % Normal [facility] Comment on above: Performed By: #### 1 0231, 6399 #### [facility] [address] [place] [address] Clam Grower: Winnie Franco #### [id number] #### [facility] [place] [address] [place] , [address] [place] [address] Clam Grower: Jesús Camp MD MCH (RBC) [Entitic mass] 29.8 pg Normal 27.0-33.0 [facility] Comment on above: Performed By: #### 1 0231, 6399 #### [facility] [address] Clam Grower: Winnie Franco #### [id number] #### [facility] [place] [address], [address] [place] [address] Clam Grower: Jesús Camp MD MCHC (RBC) [Mass/Vol] 33.7 g/dL Normal 32.0-36.[address] [facility] Comment on above: Performed By: #### 1 0231, 6399 #### [facility] [address] Clam Grower: Winnie Franco #### [id number] #### [facility] [address], [address] [place] [address] Clam Grower: Jesús Camp MD MCV (RBC) [Entitic vol] 88.3 fL Normal 80.0-100.0 [facility] Comment on above: Performed By: #### 1 0231, 7399 #### [facility] [address] Clam Grower: Winnie Franco #### [id number] #### [facility] [address], [address] [place] [address] Clam Grower: Jesús Camp MD Monocytes (Bld) [#/Vol] 0.646 10*3/uL Normal 200-950 [facility] Comment on above: Performed By: #### 1 0231, 9999 #### [facility] [address] [place] [address] Clam Grower: Winnie Franco #### [id number] #### [facility] [address], [address] [place] [address] Clam Grower: Jesús Camp MD Monocytes/100 WBC (Bld) 9.1 % Normal [facility] Comment on above: Performed By: #### 1 0231, 6399 #### [facility] [address] [place] [address] Clam Grower: Winnie Franco #### [id number] #### [facility] [address], [address] [place] [address] Clam Grower: Jesús Camp MD Neutrophils (Bld) [#/Vol] 3.77 10*3/uL Normal 8347-2093 [facility] Comment on above: Performed By: #### 1 0231, 6399 #### [facility] [address] [place] [address] Clam Grower: Winnie Franco #### [id number] #### [facility] [address], [address] [place] [address] Clam Grower: Jesús Camp MD Neutrophils/100 WBC (Bld) 53.1 % Normal [facility] Comment on above: Performed By: #### 1 0231, 6399 #### [facility] [address] [place] [address] Clam Grower: Winnie Franco #### [id number] #### [facility] [address], [address] [place] [address] Clam Grower: Jesús Camp MD Platelet mean volume (Bld) [Entitic vol] 11.3 fL Normal 7.5-12.5 [facility] Comment on above: Performed By: #### 1 0231, 6399 #### [facility] [address] [place] [address] Clam Grower: Winnie Franco #### [id number] #### [facility] [address], [address] [place] [address] Clam Grower: Jesús Camp MD Platelets (Bld) [#/Vol] 212 10*3/uL Normal 140-400 [facility] Comment on above: Performed By: #### 1 0231, 6399 #### [facility] [place] [address] Clam Grower: Winnie Franco #### [id number] #### [facility] [address] [place] , [address] [place], [place] [id number] Clam Grower: Jesús Camp MD RBC (Bld) [#/Vol] 4.80 10*6/uL Normal 3.80-5.10 [facility] Comment on above: Performed By: #### 1 0231, 6399 #### [facility] [place] [address] Clam Grower: Winnie Franco #### [id number] #### [facility] [address], [address] [place] [address] Clam Grower: Jesús Camp MD WBC (Bld) [#/Vol] 7.1 10*3/uL Normal 3.8-10.8 [facility] Comment on above: Performed By: #### 1 0231, 6399 #### [facility] [address] [place] [id number] Clam Grower: Winnie Franco #### [id number] #### [facility] [address], [address] [place] [address] Clam Grower: Jesús Camp MD [facility] PANE [facility] 05-01-2024 Albumin [Mass/Vol] 4.3 g/dL Normal 3.6-5.1 [facility] Comment on above: Performed By: #### 1 0231, 6399 #### [facility] [address] [place], [place] [id number] Clam Grower: Winnie Franco #### [id number] #### [facility] [address], [address] [place] [address] Clam Grower: Jesús Camp MD Albumin/Globulin [Mass ratio] 1.7 {ratio} Normal 1.0-2.5 [facility] Comment on above: Performed By: #### 1 0231, 6399 #### [facility] [address] [place], [place] [id number] Clam Grower: Winnie Franco #### [id number] #### [facility] [address], [address] [place] [address] Clam Grower: Jesús Camp MD ALP [Catalytic activity/Vol] 91 U/L Normal 37-153 [facility] Comment on above: Performed By: #### 1 0231, 6399 #### [facility] [address] [place], [place] [id number] Clam Grower: Winnie Franco #### [id number] #### [facility] [address], [address] [place] [address] Clam Grower: Jesús Camp MD ALT [Catalytic activity/Vol] 17 U/L Normal 6-29 [facility] Comment on above: Performed By: #### 1 023, 6399 #### [facility] [address] [place] [address] Clam Grower: Winnie Franco #### [id number] #### [facility] [place] [address] Clam Grower: Jesús Camp MD AST Normal [facility] Comment on above: Result Comment: TEST NOT PERFORMED Specimen unsuitable for testing due to hemolysis. Performed By: #### 1 023, 6399 #### [facility] [address] [place] [address] Clam Grower: Winnie Franco #### [id number] #### [facility] [address], [address] [place] [address] Clam Grower: Jesús Camp MD Bilirubin [Mass/Vol] 0.5 mg/dL Normal 0.2-1.2 [facility] Comment on above: Performed By: #### 1 023, 6399 #### [facility] [address] [place] [address] Clam Grower: Winnie Franco #### [id number] #### [facility] [place] [address] [place] , [address] [place] [address] Clam Grower: Jesús Camp MD BUN/CREATININE RATIO SEE NOTE: Normal 6-22 [facility] Comment on above: Result Comment: Not Reported: BUN and Creatinine are within reference range. Performed By: #### 1 0231, 6399 #### [facility] [address] [place] [address] Clam Grower: Winnie Franco #### [id number] #### [facility] [place] [address] [place] , [address] [place] [address] Clam Grower: Jesús Camp MD Calcium [Mass/Vol] 9.1 mg/dL Normal 8.6-10.4 [facility] Comment on above: Performed By: #### 1 0231, 6687 #### [facility] [address] [place] [address] Clam Grower: Winnie Franco #### [id number] #### [facility] [place] [address] [place] , [address] [place] [address] Clam Grower: Jesús Camp MD Chloride [Moles/Vol] 107 mmol/L Normal 98-110 [facility] Comment on above: Performed By: #### 1 0231, 6399 #### [facility] [address] [place] [address] Clam Grower: Winnie Franco #### [id number] #### [facility] [place] [address], [address] [place] [address] Clam Grower: Jesús Camp MD CO2 [Moles/Vol] 24 mmol/L Normal 20-32 [facility] Comment on above: Performed By: #### 1 0231, 6399 #### [facility] [address] [place] [address] Clam Grower: Winnie Franco #### [id number] #### [facility] [place] [address] [facility], [address] [place] [address] Clam Grower: Jesús Camp MD Creatinine [Mass/Vol] 0.64 mg/dL Normal 0.50-1.[address] [facility] Comment on above: Performed By: #### 1 0231, 6399 #### [facility] [address] [place] [address] Clam Grower: Winnie Franco #### [id number] #### [facility] [address], [address] [place] [address] Clam Grower: Jesús Camp MD GFR/1.73 sq M.predicted among non-blacks MDRD (S/P/Bld) [Vol rate/Area] 97 mL/min/{1.73_m2} Normal > OR = 60 [facility] Comment on above: Performed By: #### 1 0231, 6399 #### [facility] [address] Clam Grower: Winnie Franco #### [id number] #### [facility] [address], [address] [place] [address] Clam Grower: Jesús Camp MD Globulin (S) [Mass/Vol] 2.6 g/dL Normal 1.9-3.7 [facility] Comment on above: Performed By: #### 1 0231, 6399 #### [facility] [address] [place], [place] [id number] Clam Grower: Winnie Franco #### [id number] #### [facility] [address] , [address] [place] [address] Clam Grower: Jesús Camp MD Glucose [Mass/Vol] 77 mg/dL Normal 65-99 [facility] Comment on above: Result Comment: Fasting reference interval Performed By: #### 1 0231, 6399 #### [facility] [address] [place], [place] [id number] Clam Grower: Winnie Franco #### [id number] #### [facility] [address], [address] [place] [address] Clam Grower: Jesús Camp MD POTASSIUM Normal [facility] Comment on above: Result Comment: TEST NOT PERFORMED Specimen unsuitable for testing due to hemolysis. Performed By: #### 1 0231, 6399 #### [facility] [address] [place] [address] Clam Grower: Winnie Franco #### [id number] #### [facility] [address], [address] [place] [address] Clam Grower: Jesús Camp MD Protein [Mass/Vol] 6.9 g/dL Normal 6.1-8.1 [facility] Comment on above: Performed By: #### 1 0231, 6399 #### [facility] [address] [place] [address] Clam Grower: Winnie Franco #### [id number] #### [facility] [address], [address] [place] [address] Clam Grower: Jesús Camp MD Sodium [Moles/Vol] 141 mmol/L Normal 135-146 [facility] Comment on above: Performed By: #### 1 0231, 6399 #### [facility] [address] [place] [address] Clam Grower: Winnie Franco #### [id number] #### [facility] [address], [address] [place] [address] Clam Grower: Jesús Camp MD Urea nitrogen [Mass/Vol] 18 mg/dL Normal 7-25 [facility] Comment on above: Performed By: #### 1 0231, 6399 #### [facility] [address] [place] [address] Clam Grower: Winnie Franco #### [id number] #### [facility] [address], [address] [place] [address] Clam Grower: Jesús Camp MD SED RATE BY JOHN Yoo 05-01-2024 SED RATE BY MODIFIED WESTERGREN 12 mm/h Normal < OR = 30 [facility] Comment on above: Performed By: #### 1 0231, 6399 #### [facility] [place] [address] Clam Grower: Winnie Franco #### [id number] #### [facility] [address], [address] [place] [address] Clam Grower: Jesús Camp MD SPECIMEN INTEGRITY COMPROMIS EDon 05-01-2024 SPECIMEN INTEGRITY COMPROMISED Normal [facility] Comment on above: Order Comment: FASTI NG:YES FASTING: YES Result Comment: Whole blood, unspun or partially spun gel barrier tube received more than 2 hours since collection. A false decrease in glucose may occur due to prolonged contact with red cells. Performed By: #### 1 0231, 6399 #### [facility] [address] [place] [id number] Clam Grower: Winnie Franco #### [id number] #### [facility] [address], [address] [place] [address] Clam Grower: Jesús Camp MD US Eye+Orbit - bilateralon 0 04-21-2024 A LENGTH (OD) 22.54 [facility] A LENGTH (OS) 22.64 [facility] Right Eye Axial length was 22.54. Left Eye Axial length was 22.64. Count includes the [facility] Radiology Study observation (narrative) [facility] CBC (INCLUDES DIFF/PLT)on Basophils (Bld) [#/Vol] 0.05 10*3/uL Normal 0-200 [facility] Comment on above: Performed By: #### 6 399, 84446, 809 #### [facility] [address], [address] [place] [address] Clam Grower: Jesús Camp MD Basophils/100 WBC (Bld) 0.7 % Normal [facility] Comment on above: Performed By: #### 6 399, 57494, 809 #### [facility] [address], [address] [place] [address] Clam Grower: Jesús Camp MD Eosinophils (Bld) [#/Vol] 0.158 10*3/uL Normal 15-500 [facility] Comment on above: Performed By: #### 6 399, 25152, 809 #### [facility] of [address], [address] [place] [address] Clam Grower: Jesús Camp MD Eosinophils/100 WBC (Bld) 2.2 % Normal [facility] Comment on above: Performed By: #### 6 399, 57248, 809 #### [facility] [place] [address] Clam Grower: Jesús Camp MD Erythrocyte distribution width (RBC) [Ratio] 13.2 % Normal 11.0-15.0 [facility] Comment on above: Performed By: #### 6 399, 22269, 809 #### [facility] [place] [address] Clam Grower: Jesús Camp MD Hematocrit (Bld) [Volume fraction] 43.7 % Normal 35.0-45.0 [facility] Comment on above: Performed By: #### 6 399, 44445, 809 #### [facility] [place] [address] Clam Grower: Jesús Camp MD Hemoglobin (Bld) [Mass/Vol] 14.2 g/dL Normal 11.7-15.5 [facility] Comment on above: Performed By: #### 6 399, 91465, 809 #### [facility] [place] [address] Clam Grower: Jesús Camp MD Lymphocytes (Bld) [#/Vol] 2.412 10*3/uL Normal 850-3900 [facility] Comment on above: Performed By: #### 6 399, 67337, 809 #### [facility] [address], [address] [place] [address] Clam Grower: Jesús Camp MD Lymphocytes/100 WBC (Bld) 33.5 % Normal [facility] Comment on above: Performed By: #### 6 399, 57289, 809 #### [facility] [place] [address] Clam Grower: Jesús Camp MD MCH (RBC) [Entitic mass] 30.1 pg Normal 27.0-33.0 [facility] Comment on above: Performed By: #### 6 399, 24354, 809 #### [facility] [place] [address] Clam Grower: Jesús Camp MD MCHC (RBC) [Mass/Vol] 32.5 g/dL Normal 32.0-36.[address] [facility] Comment on above: Performed By: #### 6 399, 87961, 809 #### [facility] [place] [address] Clam Grower: Jesús Camp MD MCV (RBC) [Entitic vol] 92.8 fL Normal 80.0-100.0 [facility] Comment on above: Performed By: #### 6 399, 72486, 809 #### [facility] [place] [address] Clam Grower: Jesús Camp MD Monocytes (Bld) [#/Vol] 0.67 10*3/uL Normal 200-950 [facility] Comment on above: Performed By: #### 6 399, 26350, 809 #### [facility] [place] [address] Clam Grower: Jesús Camp MD Monocytes/100 WBC (Bld) 9.3 % Normal [facility] Comment on above: Performed By: #### 6 399, 50010, 809 #### [facility] [place] [address] Clam Grower: Jesús Camp MD Neutrophils (Bld) [#/Vol] 3.91 10*3/uL Normal 3575-8612 [facility] Comment on above: Performed By: #### 6 399, 47959, 809 #### [facility] [place] [address] Clam Grower: Jesús Camp MD Neutrophils/100 WBC (Bld) 54.3 % Normal [facility] Comment on above: Performed By: #### 6 399, 49455, 809 #### [facility] [place] [address] Clam Grower: Jesús Camp MD Platelet mean volume (Bld) [Entitic vol] 11.4 fL Normal 7.5-12.5 [facility] Comment on above: Performed By: #### 6 399, 80532, 809 #### [facility] [place] [address] Clam Grower: Jesús Camp MD Platelets (Bld) [#/Vol] 214 10*3/uL Normal 140-400 [facility] Comment on above: Performed By: #### 6 399, 46309, 809 #### [facility] [place] [address] Clam Grower: Jesús Camp MD RBC (Bld) [#/Vol] 4.71 10*6/uL Normal 3.80-5.10 [facility] Comment on above: Performed By: #### 6 399, 07882, 809 #### [facility] [place] [address] Clam Grower: Jesús Camp MD WBC (Bld) [#/Vol] 7.2 10*3/uL Normal 3.8-10.8 [facility] Comment on above: Performed By: #### 6 399, 99723, 809 #### [facility] [place] [address] Clam Grower: Jesús Camp MD [facility] METABOLIC PANE [facility] 12-28-2023 Albumin [Mass/Vol] 4.4 g/dL Normal 3.6-5.1 [facility] Comment on above: Performed By: #### 6 399, 88750, 809 #### [facility] [address], [address] [place] [address] Clam Grower: Jesús Camp MD Albumin/Globulin [Mass ratio] 1.7 {ratio} Normal 1.0-2.5 [facility] Comment on above: Performed By: #### 6 399, 03644, 809 #### [facility] [address], [address] [place] [address] Clam Grower: Jesús Camp MD ALP [Catalytic activity/Vol] 86 U/L Normal 37-153 [facility] Comment on above: Performed By: #### 6 399, 30692, 809 #### [facility] [address], [address] [place] [address] Clam Grower: Jesús Camp MD ALT [Catalytic activity/Vol] 13 U/L Normal 6-29 [facility] Comment on above: Performed By: #### 6 399, 58404, 809 #### [facility] [address], [address] [place] [address] Clam Grower: Jesús Camp MD AST [Catalytic activity/Vol] 13 U/L Normal 10-35 [facility] Comment on above: Performed By: #### 6 399, 09757, 809 #### [facility] [address], [address] [place] [address] Clam Grower: Jesús Camp MD Bilirubin [Mass/Vol] 0.3 mg/dL Normal 0.2-1.2 [facility] Comment on above: Performed By: #### 6 399, 17702, 809 #### [facility] [address], [address] [place] [address] Clam Grower: Jesús Camp MD BUN/CREATININE RATIO SEE NOTE: Normal 6-22 [facility] Comment on above: Result Comment: Not Reported: BUN and Creatinine are within reference range. Performed By: #### 6 399, 26716, 809 #### [facility] [address], [address] [place] [address] Clam Grower: Jesús Camp MD Calcium [Mass/Vol] 9.2 mg/dL Normal 8.6-10.4 [facility] Comment on above: Performed By: #### 6 399, 01706, 809 #### [facility] [address], [address] [place] [address] Clam Grower: Jesús Camp MD Chloride [Moles/Vol] 105 mmol/L Normal 98-110 [facility] Comment on above: Performed By: #### 6 399, 64130, 809 #### [facility] [address], [address] [place] [address] Clam Grower: Jesús Camp MD CO2 [Moles/Vol] 27 mmol/L Normal 20-32 [facility] Comment on above: Performed By: #### 6 399, 68349, 809 #### [facility] [address], [address] [place] [address] Clam Grower: Jesús Camp MD Creatinine [Mass/Vol] 0.73 mg/dL Normal 0.50-1.[address] [facility] Comment on above: Performed By: #### 6 399, 61111, 809 #### [facility] [address], [address] [place] [address] Clam Grower: Jesús Camp MD GFR/1.73 sq M.predicted among non-blacks MDRD (S/P/Bld) [Vol rate/Area] 91 mL/min/{1.73_m2} Normal > OR = 60 [facility] Comment on above: Performed By: #### 6 399, 01798, 809 #### [facility] [address], [address] [place] [address] Clam Grower: Jesús Camp MD Globulin (S) [Mass/Vol] 2.6 g/dL Normal 1.9-3.7 [facility] Comment on above: Performed By: #### 6 399, 26069, 809 #### [facility] [address], [address] [place] [address] Clam Grower: Jesús Camp MD Glucose [Mass/Vol] 87 mg/dL Normal 65-99 [facility] Comment on above: Result Comment: Fasting reference interval Performed By: #### 6 399, 70255, 809 #### [facility] [place] [address] Clam Grower: Jesús Camp MD Potassium [Moles/Vol] 4.6 mmol/L Normal 3.5-5.3 [facility] Comment on above: Performed By: #### 6 399, 28736, 809 #### [facility] [address], [address] [place] [address] Clam Grower: Jesús Camp MD Protein [Mass/Vol] 7.0 g/dL Normal 6.1-8.1 [facility] Comment on above: Performed By: #### 6 399, 56179, 809 #### [facility] [place] [address] Clam Grower: Jesús Camp MD Sodium [Moles/Vol] 140 mmol/L Normal 135-146 [facility] Comment on above: Performed By: #### 6 399, 65563, 809 #### [facility] [place] [address] Clam Grower: Jesús Camp MD Urea nitrogen [Mass/Vol] 21 mg/dL Normal 7-25 [facility] Comment on above: Performed By: #### 6 399, 99997, 809 #### [facility] [place] [address] Clam Grower: Jesús Camp MD SED RATE BY MODIFIED LUCHO Yoo 12-28-2023 SED RATE BY MODIFIED WESTERGREN 6 mm/h Normal < OR = 30 [facility] Comment on above: Performed By: #### 6 399, 91173, 809 #### [facility] [place] [address] Clam Grower: Jesús Camp MD Albumin [Mass/volume] in Ser um or PlasmaOrdered By: Nenita Larsen on 06-26-2022 Albumin [Mass/Vol] 3.6 g/dL 3.2-5.5 [facility] Basophils Auto (Bld) [#/Vol] Ordered By: Nenita Larsen on 06-26-2022 Basophils (Bld) [#/Vol] 0.0 10*3/uL 0.0-0.2 [facility] Basophils/100 WBC Auto (Bld) Ordered By: Nenita Larsen on 06-26-2022 Basophils/100 WBC (Bld) 0.6 % . [facility] Complete Blood Count Auto Di ffon 06-26-2022 Basophils (Bld) [#/Vol] 0.0 10*3/uL Normal 0.0-0.2 [facility] Comment on above: Performed By: #### C MP, CBC, ESR #### [facility] [address] Basophils/100 WBC (Bld) 0.6 % Normal . [facility] Comment on above: Performed By: #### C MP, CBC, ESR #### [facility] [address] Eosinophils (Bld) [#/Vol] 0.1 10*3/uL Normal 0.0-0.45 [facility] Comment on above: Performed By: #### C MP, CBC, ESR #### [facility] [address] Eosinophils/100 WBC (Bld) 1.7 % Normal . [facility] Comment on above: Performed By: #### C MP, CBC, ESR #### [facility] [address] [place] [address] [place] Erythrocyte distribution width (RBC) [Ratio] 14.9 % Normal 11.9-15.3 [facility] Comment on above: Performed By: #### C MP, CBC, ESR #### [facility] [address] Hematocrit (Bld) [Volume fraction] 42.8 % Normal 34.0-46.4 [facility] Comment on above: Performed By: #### C MP, CBC, ESR #### [facility] [address] Hemoglobin (Bld) [Mass/Vol] 13.8 g/dL Normal 11.8-15.4 [facility] Comment on above: Performed By: #### C MP, CBC, ESR #### [facility] [address] Lymphocytes (Bld) [#/Vol] 2.1 10*3/uL Normal 1.00-4.8 [facility] Comment on above: Performed By: #### C MP, CBC, ESR #### [address] Lymphocytes/100 WBC (Bld) 26.9 % Normal . [facility] Comment on above: Performed By: #### C MP, CBC, ESR #### [address] MCH (RBC) [Entitic mass] 29.1 pg Normal 24.7-34.3 [facility] Comment on above: Performed By: #### C MP, CBC, ESR #### [address] MCV (RBC) [Entitic vol] 90.3 fL Normal 80-100 [facility] Comment on above: Performed By: #### C MP, CBC, ESR #### [address] Mean Corpuscular HGB Conc 32.2 g/dL Normal 32.0-35.0 [facility] Comment on above: Performed By: #### C MP, CBC, ESR #### [place] [address] [place] Monocytes (Bld) [#/Vol] 0.6 10*3/uL Normal 0.0-0.8 [facility] Comment on above: Performed By: #### C MP, CBC, ESR #### [facility] [address] Monocytes/100 WBC (Bld) 8.1 % Normal . [facility] Comment on above: Performed By: #### C MP, CBC, ESR #### [facility] [address] Neutrophils (Bld) [#/Vol] 4.9 10*3/uL Normal 1.8-7.7 [facility] Comment on above: Performed By: #### C MP, CBC, ESR #### [facility] [address] Neutrophils/100 WBC (Bld) 62.7 % Normal . [facility] Comment on above: Performed By: #### C MP, CBC, ESR #### [address] Nucleated RBC/100 WBC (Bld) [Ratio] 0.0 % Normal 0-0.5 [facility] Comment on above: Performed By: #### C MP, CBC, ESR #### [address] Platelet mean volume (Bld) [Entitic vol] 9.6 fL Normal 6.3-10.7 [facility] Comment on above: Performed By: #### C MP, CBC, ESR #### [address] Platelets (Bld) [#/Vol] 196 10*3/uL Normal 150-450 [facility] Comment on above: Performed By: #### C MP, CBC, ESR #### [address] RBC (Bld) [#/Vol] 4.74 10*6/uL Normal 3.60-5.00 [facility] Comment on above: Performed By: #### C MP, CBC, ESR #### [place] [address] [place] WBC (Bld) [#/Vol] 7.9 10*3/uL Normal 4.5-11.0 [facility] Comment on above: Performed By: #### C MP, CBC, ESR #### [address] Comprehensive Metabolic Pane booker 06-26-2022 Albumin [Mass/Vol] 3.6 g/dL Normal 3.2-5.5 [facility] Comment on above: Performed By: #### C MP, CBC, ESR #### [facility] [address] Albumin/Globulin [Mass ratio] 1.5 {ratio} Normal [facility] Comment on above: Performed By: #### C MP, CBC, ESR #### [facility] [address] ALP [Catalytic activity/Vol] 103 U/L High 32-92 [facility] Comment on above: Result Comment: PERF ORMED BY: [place] [address] PATHOLOGIST [employer] REPAIRER ELAINE HAMLIN M.D. Performed By: #### C MP, CBC, ESR #### [address] ALT [Catalytic activity/Vol] 13 U/L Normal 10-60 [facility] Comment on above: Performed By: #### C MP, CBC, ESR #### [facility] [address] Anion gap [Moles/Vol] 12.5 mmol/L Normal 6.0-15.0 [facility] Comment on above: Performed By: #### C MP, CBC, ESR #### [address] AST [Catalytic activity/Vol] 16 U/L Normal 10-42 [facility] Comment on above: Performed By: #### C MP, CBC, ESR #### [facility] [address] [place] [address] [place] Bilirubin [Mass/Vol] 0.3 mg/dL Normal 0.3-1.2 [facility] Comment on above: Performed By: #### C MP, CBC, ESR #### [facility] [address] Calcium [Mass/Vol] 9.0 mg/dL Normal 8.2-10.2 [facility] Comment on above: Performed By: #### C MP, CBC, ESR #### [facility] [address] Chloride [Moles/Vol] 106 mmol/L Normal 95-114 [facility] Comment on above: Performed By: #### C MP, CBC, ESR #### [facility] [address] CO2 [Moles/Vol] 24.4 mmol/L Normal 22.0-30.0 [facility] Comment on above: Performed By: #### C MP, CBC, ESR #### [facility] [address] Creatinine [Mass/Vol] 0.77 mg/dL Normal 0.44-1.03 [facility] Comment on above: Performed By: #### C MP, CBC, ESR #### [address] Estimated GFR ( Denise > 60 [facility] Comment on above: Result Comment: GFR estimated reference range: According to KDOQI guidelines, <60 ml/min/1.73m2 is sufficient to diagnose a patient with chronic kidney disease. Performed By: #### C MP, CBC, ESR #### [facility] [address] Estimated GFR (Non- Am > 60 [facility] Comment on above: Performed By: #### C MP, CBC, ESR #### [facility] [address] Globulin (S) [Mass/Vol] 2.4 g/dL Normal [facility] Comment on above: Performed By: #### C MP, CBC, ESR #### [facility] [address] [place] [address] [place] Glucose [Mass/Vol] 122 mg/dL High 70-100 [facility] Comment on above: Result Comment: [place] om Glucose Reference Range is dependent on time and content of last meal. Glucose of more than 200 mg/dL in a nonstressed, ambulatory subject supports the diagnosis of Diabetes Mellitus. ADA recommended reference range Performed By: #### C MP, CBC, ESR #### [facility] [address] [place] [id number] [place] Potassium [Moles/Vol] 3.9 mmol/L Normal 3.5-5.1 [facility] Comment on above: Performed By: #### C MP, CBC, ESR #### [facility] [address] [place] [id number] [place] Protein [Mass/Vol] 6.0 g/dL Low 6.1-7.9 [facility] Comment on above: Performed By: #### C MP, CBC, ESR #### [facility] [address] [place] [address] [place] Sodium [Moles/Vol] 139 mmol/L Normal 136-146 [facility] Comment on above: Performed By: #### C MP, CBC, ESR #### [facility] [address] [place] [address] [place] Urea nitrogen [Mass/Vol] 17 mg/dL Normal 9-23 [facility] Comment on above: Performed By: #### C MP, CBC, ESR #### [facility] [address] [place] [address] [place] Creatinine and Glomerular fi ltration rate.predicted panel (S/P/Bld)Ordered By: Nenita Larsen on 06-26-2022 Creatinine [Mass/Vol] 0.77 mg/dL 0.44-1.03 [facility] Eosinophils Auto (Bld) [#/Vo l]Ordered By: Nneita Larsen on 06-26-2022 Eosinophils (Bld) [#/Vol] 0.1 10*3/uL 0.0-0.45 [facility] Eosinophils/100 WBC Auto (Bl d)Ordered By: Nenita Larsen on 06-26-2022 Eosinophils/100 WBC (Bld) 1.7 % . [facility] Erythrocyte Sedimentation Ra jen 06-26-2022 ESR (Bld) [Velocity] 25 mm/h Normal 0-29 [facility] Comment on above: Result Comment: PERF ORMED BY: [facility] [address] [place] [address] PATHOLOGIST [employer] REPA[employer]ER ELAINE HAMLIN M.D. Performed By: #### C MP, CBC, ESR #### [facility] [address] [place] [id number] [facility] Erythrocyte distribution wid th Auto (RBC) [Ratio]Ordered By: Nenita Larsen on 06-26-2022 Erythrocyte distribution width (RBC) [Ratio] 14.9 % 11.9-15.3 [facility] Erythrocyte sedimentation ra te by Photometric methodOrdered By: Nenita Larsen on 06-26-2022 ESR Photometric method (Bld) [Velocity] 25 mm/hr 0-29 [facility] Estimated glomerular filtrat ion rate (GFR) non- AmericanOrdered By: Nenita Larsen on 06-26-2022 GFR/1.73 sq M.predicted among non-blacks MDRD (S/P/Bld) [Vol rate/Area] > 60 mL/Min [facility] Globulin Calc (S) [Mass/Vol] Ordered By: Nenita Larsen on 06-26-2022 Globulin (S) [Mass/Vol] 2.4 g/dL [facility] Hematocrit Auto (Bld) [Volum e fraction]Ordered By: Nenita Larsen on 06-26-2022 Hematocrit (Bld) [Volume fraction] 42.8 % 34.0-46.4 [facility] Hemoglobin [Mass/volume] in BloodOrdered By: Nenita Larsen on 06-26-2022 Hemoglobin (Bld) [Mass/Vol] 13.8 g/dL 11.8-15.4 [facility] Laboratory - Hematology and Cell countsOrdered By: Nenita Larsen on 06-26-2022 Nucleated RBC/100 WBC (Bld) [Ratio] 0.0 % 0-0.5 [facility] Leukocytes [#/volume] in Blo od by Automated countOrdered By: Nenita Larsen on 06-26-2022 WBC (Bld) [#/Vol] 7.9 10*3/uL 4.5-11.0 [facility] Lymphocytes Auto (Bld) [#/Vo l]Ordered By: Nenita Larsen on 06-26-2022 Lymphocytes (Bld) [#/Vol] 2.1 10*3/uL 1.00-4.8 [facility] Lymphocytes/100 WBC Auto (Bl d)Ordered By: Nenita Larsen on 06-26-2022 Lymphocytes/100 WBC (Bld) 26.9 % . [facility] MCH Auto (RBC) [Entitic mass ]Ordered By: Nenita Larsen on 06-26-2022 MCH (RBC) [Entitic mass] 29.1 pg 24.7-34.3 [facility] MCHC Auto (RBC) [Mass/Vol]Or dered By: Nenita Larsen on 06-26-2022 MCHC (RBC) [Mass/Vol] 32.2 g/dL 32.0-35.0 [facility] MCV Auto (RBC) [Entitic vol] Ordered By: Nenita Larsen on 06-26-2022 MCV (RBC) [Entitic vol] 90.3 fL 80-100 [facility] Monocytes Auto (Bld) [#/Vol] Ordered By: Nenita Larsen on 06-26-2022 Monocytes (Bld) [#/Vol] 0.6 10*3/uL 0.0-0.8 [facility] Monocytes/100 WBC Auto (Bld) Ordered By: Nenita Larsen on 06-26-2022 Monocytes/100 WBC (Bld) 8.1 % . [facility] Neutrophils Auto (Bld) [#/Vo l]Ordered By: Nenita Larsen on 06-26-2022 Neutrophils (Bld) [#/Vol] 4.9 10*3/uL 1.8-7.7 [facility] Neutrophils/100 WBC Auto (Bl d)Ordered By: Nenita Larsen on 06-26-2022 Neutrophils/100 WBC (Bld) 62.7 % . [facility] No Panel InformationOrdered By: Nenita Larsen on 06-26-2022 Estimated GFR () > 60 mL/Min [facility] Comment on above: GFR estimated refere nce range: According to KDOQI guidelines, <60 ml/min/1.73m2 is sufficient to diagnose a patient with chronic kidney disease. Pharmacy Creatinine Clearance (Chem N/A [facility] Platelet mean volume Auto (B ld) [Entitic vol]Ordered By: Nenita Larsen on 06-26-2022 Platelet mean volume (Bld) [Entitic vol] 9.6 fL 6.3-10.7 [facility] Platelets Auto (Bld) [#/Vol] Ordered By: Nenita Larsen on 06-26-2022 Platelets (Bld) [#/Vol] 196 10*3/uL 150-450 [facility] Protein [Mass/volume] in Ser um or PlasmaOrdered By: Nenita Larsen on 06-26-2022 Protein [Mass/Vol] 6.0 g/dL 6.1-7.9 [facility] RBC Auto (Bld) [#/Vol]Ordere d By: Nenita Larsen on 06-26-2022 RBC (Bld) [#/Vol] 4.74 10*6/uL 3.60-5.00 [facility] Serum or plasma alanine schmitz otransferase measurement without P-5'-P (enzymatic activiOrdered By: Nenita Larsen on 06-26-2022 ALT No additional P-5'-P [Catalytic activity/Vol] 13 U/L 10-60 [facility] Serum or plasma albumin/glob ulin mass ratioOrdered By: Nenita Larsen on 06-26-2022 Albumin/Globulin [Mass ratio] 1.5 {ratio} [facility] Serum or plasma alkaline jesi sphatase measurement (enzymatic activity/volume)Ordered By: Nenita Larsen on 06-26-2022 ALP [Catalytic activity/Vol] 103 U/L 32-92 [facility] Serum or plasma anion gap de terminationOrdered By: Nenita Larsen on 06-26-2022 Anion gap [Moles/Vol] 12.5 mmol/L 6.0-15.0 [facility] Serum or plasma aspartate am inotransferase measurement (enzymatic activity/volume)Ordered By: Nenita Larsen on 06-26-2022 AST [Catalytic activity/Vol] 16 U/L 10-42 [facility] Serum or plasma calcium davonte urement (mass/volume)Ordered By: Nenita Larsen on 06-26-2022 Calcium [Mass/Vol] 9.0 mg/dL 8.2-10.2 [facility] Serum or plasma chloride thao surement (moles/volume)Ordered By: Nenita Larsen on 06-26-2022 Chloride [Moles/Vol] 106 mmol/L 95-114 [facility] Serum or plasma glucose davonte urement (mass/volume)Ordered By: Nenita Larsen on 06-26-2022 Glucose [Mass/Vol] 122 mg/dL 70-100 [facility] Comment on above: ADA recommended refe rence rangeRandom Glucose Reference Range is dependent on time and content of last meal. Glucose of more than 200 mg/dL in a nonstressed, ambulatory subject supports the diagnosis of Diabetes Mellitus. Serum or plasma potassium me asurement (moles/volume)Ordered By: Nenita Larsen on 06-26-2022 Potassium [Moles/Vol] 3.9 mmol/L 3.5-5.1 [facility] Serum or plasma sodium measu rement (moles/volume)Ordered By: Nenita Larsen on 06-26-2022 Sodium [Moles/Vol] 139 mmol/L 136-146 [facility] Serum or plasma total biliru bin measurement (mass/volume)Ordered By: Nenita Larsen on 06-26-2022 Bilirubin [Mass/Vol] 0.3 mg/dL 0.3-1.2 [facility] Serum or plasma total carbon dioxide measurement (moles/volume)Ordered By: Nenita Larsen on 06-26-2022 CO2 [Moles/Vol] 24.4 mmol/L 22.0-30.0 [facility] Serum or plasma urea nitroge n measurement (mass/volume)Ordered By: Nenita Larsen on 06-26-2022 Urea nitrogen [Mass/Vol] 17 mg/dL 9-23 [facility] CBC AUTO DIFFon 03-13-2021 BASO # 0.1 103/ul Normal 0.0-0.1 [facility] Comment on above: Performed By: #### C BC #### [facility] [address] [place], [place] [address] Emilydenzel Pompaen Basophils/100 WBC (Bld) 0.4 % Normal 0.2-2.0 [facility] Comment on above: Performed By: #### C BC #### [facility] [address] [id number] Emily Sommer EO # 0.1 103/ul Normal 0.0-0.7 [facility] Comment on above: Performed By: #### C BC #### [facility] [address] [id number] Emily Sommer Eosinophils/100 WBC (Bld) 0.8 % Critically low 0.9-7.0 [facility] Comment on above: Performed By: #### C BC #### [facility] [address] [place] [address] Emily Sommer Erythrocyte distribution width (RBC) [Ratio] 16.1 % Critically high 11.0-15.0 [facility] Comment on above: Performed By: #### C BC #### [facility] [address] [place] [address] Emily Sommer Hematocrit (Bld) [Volume fraction] 44.2 % Normal 36.0-48.0 [facility] Comment on above: Performed By: #### C BC #### [facility] [address] [place], [place] [phone] Emily Sommer Hemoglobin (Bld) [Mass/Vol] 14.4 g/dL Normal 12.0-16.0 [facility] Comment on above: Performed By: #### C BC #### [facility] [address] [place] [address] Emily Sommer IG # 0.05 10e3/ul Critically high 0.00-0.03 [facility] Comment on above: Performed By: #### C BC #### [facility] [address] [place] [address] Emily Sommer IG % 0.4 % Normal 0.0-0.5 [facility] Comment on above: Performed By: #### C BC #### [facility] [address] [place], [place] [id number] Emily Sommer LYMPH # 4.7 103/ul Critically high 1.2-3.8 [facility] Comment on above: Performed By: #### C BC #### [facility] [address] [place] [address] Emily Sommer Lymphocytes/100 WBC (Bld) 35.9 % Normal 20.5-60.0 [facility] Comment on above: Performed By: #### C BC #### [facility] [address] [place], [place] [phone] Emily Sommer MANUAL DIFF REQ NO Normal [facility] Comment on above: Performed By: #### C BC #### [facility] [address] [place], [place] [phone] Emily Sommer MCH (RBC) [Entitic mass] 30.6 pg Normal 26.7-34.0 [facility] Comment on above: Performed By: #### C BC #### [facility] [address] [place] [address] Emily Sommer MCHC (RBC) [Mass/Vol] 32.6 g/dL Normal 29.9-35.2 [facility] Comment on above: Performed By: #### C BC #### [facility] [address] [place], [place] [phone] Emily Sommer MCV (RBC) [Entitic vol] 93.8 fL Normal 81.0-99.0 [facility] Comment on above: Performed By: #### C BC #### [facility] [address] [place], [place] [id number] Emily Sommer MONO # 0.8 103/ul Normal 0.3-0.8 [facility] Comment on above: Performed By: #### C BC #### [facility] [address] [place], [place] [phone] Emily Sommer Monocytes/100 WBC (Bld) 6.2 % Normal 1.7-12.0 [facility] Comment on above: Performed By: #### C BC #### [facility] [address] [place], [place] [phone] Emily Sommer NEUT # 7.4 103/ul Critically high 1.4-6.5 [facility] Comment on above: Performed By: #### C BC #### [facility] [address] [id number] Emily Novoa Neutrophils/100 WBC (Bld) 56.3 % Normal 43.0-75.0 [facility] Comment on above: Performed By: #### C BC #### [facility] [address] [place], [place] [phone] Emily Novoa Platelet mean volume (Bld) [Entitic vol] 10.2 fL Normal 9.5-13.5 [facility] Comment on above: Performed By: #### C BC #### [facility] [address] [place] [address] Emily Novoa PLT 259 103/ul Normal 150-450 [facility] Comment on above: Performed By: #### C BC #### [facility] [address] [place] [address] Emily Novoa RBC 4.71 106/ul Normal 4.20-5.40 [facility] Comment on above: Performed By: #### C BC #### [facility] [address] [place] [address] Emily Novoa WBC 13.2 103/ul Critically high 4.0-11.0 [facility] Comment on above: Performed By: #### C BC #### [facility] [address] [place] [address] Emily Novoa CREATININEon 03-13-2021 Creatinine [Mass/Vol] 0.96 mg/dL Normal 0.52-1.04 [facility] Comment on above: Performed By: #### C TERESA, AST, ALT #### [facility] [address] [place] [address] Emily Pompaen EGFR-AF LIBERIAN >60 Normal >=60 [facility] Comment on above: Performed By: #### C TERESA, AST, ALT #### [facility] [address] [place] [address] Emily Pompaen EGFR-NON AF LIBERIAN 59 mL/min/1.73m2 Critically low >=60 [facility] Comment on above: Performed By: #### C TERESA, AST, ALT #### [facility] [address] [place] [address] Emily Novoa SED RATE WESTERGRENon 2020 SED RATE 30 mm/hr Normal <=30 [facility] Comment on above: Performed By: #### S EDR #### [facility] [address] [place] [address] Emily Novoa SGOTon 03-13-2021 AST [Catalytic activity/Vol] 17 U/L Normal 14-36 [facility] Comment on above: Performed By: #### C TERESA, AST, ALT #### [facility] [address] [address] Emily Novoa SGPTon 03-13-2021 ALT [Catalytic activity/Vol] 16 U/L Normal 9-52 [facility] Comment on above: Performed By: #### C TERESA, AST, ALT #### [facility] [address] [place] [address] Emily Novoa CYCLIC CITRULLINATED PEPTIDE AB (CCP)on 12-06-2020 CCP Antibodies IgG/IgA 10 units Normal 0-19 [facility] Comment on above: Result Comment: Nega tive <20 Weak positive 20 - 39 Moderate positive 40 - 59 Strong positive >59 Performed By: #### C CPAB #### [facility] [address] [place] [address] Emily Novoa RHEUMATOID FACTORon 12-05-19 21 RA Latex Turbid. <10.0 Normal 0.0-13.9 [facility] Comment on above: Performed By: #### R F #### [facility] [address] [place] [address] Emily Novoa XR CSPINE MIN 4 VIEWSon 10-24 XR CSPINE MIN 4 VIEWS EXAMINATION: XR CSPINE MIN 4 VIEWS HISTORY: Cervical radiculopathy COMPARISON: No relevant comparison available. FINDINGS: BONES: Reversal of normal cervical lordosis. No acute fracture or spondylolisthesis. Moderate degenerative spondylosis most significant at C4-C5 with posterior osteophyte formation encroaching up to 3 mm into the central canal. Moderate facet osteoarthropathy DISC SPACES: Multilevel disc space narrowing with endplate sclerosis most significant at C4-C5 PARASPINOUS: Negative. No paraspinous abnormality is seen. OTHER: Negative. IMPRESSION: Moderate degenerative changes with reversal of cervical lordosis Electronically authenticated by: TRACY PATEL Date: 2020-11-04 13:41 Normal [facility] Vital Signs Date Time Vital Sign Value Performing Clinician Facility 02-16-2025 08:32-0400 Body height 170.2 cm Apolonia James DO Work Phone: [facility] 02-16-2025 08:32-0400 Body mass index (BMI) [Ratio] 32.26 kg/m2 Apolonia James DO Work Phone: [facility] 02-16-2025 08:32-0400 Body weight 93.44 kg Apolonia James DO Work Phone: [facility] 01-01-2025 10:05-0400 Heart rate 69 /min Esparza Sarmini [facility] 01-01-2025 10:05-0400 Respiratory rate 21 /min Esparza Sarmini [facility] 01-01-2025 10:05-0400 SaO2% (BldA) [Mass fraction] 100 % Esparza Sarmini [facility] 01-01-2025 10:05-0400 Blood Pressure Location Esparza Sarmini [facility] 01-01-2025 10:05-0400 Diastolic blood pressure 99 mm[Hg] Esparza Sarmini [facility] 01-01-2025 10:05-0400 Mean blood pressure 111 mm[Hg] Esparza Sarmini [facility] 01-01-2025 10:05-0400 Systolic blood pressure 136 mm[Hg] Esparza Sarmini [facility] 01-01-2025 09:55-0400 Heart rate 68 /min Esparza Sarmini [facility] 01-01-2025 09:55-0400 Respiratory rate 27 /min Esparza Sarmini [facility] 01-01-2025 09:55-0400 SaO2% (BldA) [Mass fraction] 96 % Esparza Sarmini [facility] 01-01-2025 09:55-0400 Blood Pressure Location Esparza Sarmini [facility] 01-01-2025 09:55-0400 Diastolic blood pressure 71 mm[Hg] Esparza Sarmini [facility] 01-01-2025 09:55-0400 Mean blood pressure 85 mm[Hg] Esparza Sarmini [facility] 01-01-2025 09:55-0400 Systolic blood pressure 114 mm[Hg] Esparza Sarmini [facility] 01-01-2025 09:50-0400 Heart rate 72 /min Esparza Sarmini [facility] 01-01-2025 09:50-0400 SaO2% (BldA) [Mass fraction] 94 % Esparza Sarmini [facility] 01-01-2025 09:50-0400 Respiratory rate 17 /min Esparza Sarmini [facility] 01-01-2025 09:50-0400 Blood Pressure Location Esparza Sarmini [facility] 01-01-2025 09:50-0400 Diastolic blood pressure 64 mm[Hg] Esparza Sarmini [facility] 01-01-2025 09:50-0400 Mean blood pressure 69 mm[Hg] Esparza Sarmini [facility] 01-01-2025 09:50-0400 Systolic blood pressure 80 mm[Hg] Esparza Sarmini [facility] 01-01-2025 09:47-0400 Body temperature 98.24 [degF] Esparza Sarmini [facility] 01-01-2025 09:35-0400 Respiratory rate 16 /min Esparza Sarmini [facility] 01-01-2025 09:30-0400 Respiratory rate 15 /min Esparza Sarmini [facility] 01-01-2025 09:25-0400 Respiratory rate 15 /min Esparza Sarmini [facility] 01-01-2025 08:15-0400 Body temperature 97.34 [degF] Esparza Sarmini [facility] 12-24-2024 08:58-0400 Body height 170.2 cm Kingsley Guido DPM Work Phone: [facility] 12-24-2024 08:58-0400 Body mass index (BMI) [Ratio] 32.26 kg/m2 Kingsley Guido DPM Work Phone: [facility] 12-24-2024 08:58-0400 Body weight 93.44 kg Kingsley Guido DPM Work Phone: [facility] 12-24-2024 08:58-0400 Respiratory rate 16 /min Kingsley Guido DPM Work Phone: [facility] 12-18-2024 08:39-0400 Body height 170.2 cm Apolonia James DO Work Phone: [facility] 12-18-2024 08:39-0400 Body mass index (BMI) [Ratio] 32.26 kg/m2 Apolonia James DO Work Phone: [facility] 12-18-2024 08:39-0400 Body weight 93.44 kg Apolonia James DO Work Phone: [facility] 12-10-2024 08:54-0400 Body height 165.1 cm Kingsley Guido DPM Work Phone: [facility] 12-10-2024 08:54-0400 Body mass index (BMI) [Ratio] 33.28 kg/m2 Kingsley Guido DPM Work Phone: [facility] 12-10-2024 08:54-0400 Body weight 90.72 kg Kingsley Guido DPM Work Phone: [facility] 12-10-2024 08:54-0400 Respiratory rate 16 /min Kingsley Guido DPM Work Phone: [facility] 10-26-2024 10:54-0500 Body height 165.1 cm Kingsley Guido DPM Work Phone: [facility] 10-26-2024 10:54-0500 Body mass index (BMI) [Ratio] 33.28 kg/m2 Kingsley Guido DPM Work Phone: [facility] 10-26-2024 10:54-0500 Body weight 90.72 kg Kingsley Guido DPM Work Phone: [facility] 10-26-2024 10:54-0500 Respiratory rate 18 /min Kingsley Guido DPM Work Phone: [facility] Healthcare Encounters Encounter Date Encounter Type Care Provider Facility Start: 02-16-2025 End: 02-16-2025 Bamboo flowsheet Apolonia James DO Work Phone: [facility] Start: 02-16-2025 End: 02-16-2025 Bamboo flowsheet Apolonia James DO Work Phone: [facility] Start: 02-16-2025 End: 02-16-2025 ambulatory APOLONIA JAMES Not Available Start: 02-16-2025 End: 02-16-2025 Patient encounter procedure Apolonia James DO Work Phone: [facility] Comment on above: Bilateral primary os teoarthritis of knee (Primary Dx) Start: 02-05-2025 End: 02-05-2025 ambulatory Esparza Talal Sarmini Facility:[facility] Start: 02-05-2025 End: 02-05-2025 Patient encounter procedure Esparza Talal Sarmini [facility] Start: 01-14-2025 End: 01-14-2025 ambulatory KINGSLEY GUIDO Not Available Start: 01-01-2025 End: 01-01-2025 ambulatory Esparza Talal Sarmini [place] [place]: 01-01-2025 End: 01-01-2025 Patient encounter procedure Esparza Talal Davidmini [facility] Start: 12-24-2024 End: 12-24-2024 Bamboo flowsheet Kingsley Guido DPM Work Phone: [facility] Start: 12-24-2024 End: 12-24-2024 Bamboo flowsheet Kingsley Guido DPM Work Phone: [facility] Start: 12-24-2024 End: 12-24-2024 ambulatory KINGSLEY GUIDO Not Available Start: 12-24-2024 End: 12-24-2024 Office outpatient visit 15 minutes Kingsley Guido DPM Work Phone: [facility] Comment on above: Capsulitis of metata rsophalangeal (MTP) joint of left foot (Primary Dx); Capsulitis of metatarsophalangeal (MTP) joint of right foot; Verruca plantaris; Foot pain, right Start: 12-18-2024 End: 12-18-2024 Bamboo flowsheet Apolonia James DO Work Phone: [facility] Start: 12-18-2024 End: 12-18-2024 Bamboo flowsheet Apolonia James DO Work Phone: [facility] Start: 12-18-2024 End: 12-18-2024 ambulatory APOLONIA JAMES Not Available Start: 12-18-2024 End: 12-18-2024 Patient encounter procedure Apolonia James DO Work Phone: [facility] Comment on above: Bilateral primary os teoarthritis of knee (Primary Dx) Start: 12-10-2024 End: 12-10-2024 Bamboo flowsheet Kingsley Guido DPM Work Phone: [facility] Start: 12-10-2024 End: 12-10-2024 Bamboo flowsheet Kingsley Guido DPM Work Phone: [facility] Start: 12-10-2024 End: 12-10-2024 Office outpatient visit 15 minutes Kingsley Guido DPM Work Phone: [facility] Comment on above: Capsulitis of metata rsophalangeal (MTP) joint of left foot (Primary Dx); Capsulitis of metatarsophalangeal (MTP) joint of right foot; Verruca plantaris; Foot pain, right Start: 12-10-2024 End: 12-10-2024 ambulatory KINGSLEY GUIDO Not Available Start: 11-27-2024 End: 11-28-2024 ambulatory Shaila Cordova [place] [place] Start: 11-27-2024 End: 11-28-2024 Patient encounter procedure Shaila Cordova [facility] Start: 11-23-2024 End: 11-23-2024 ambulatory Vilma Mantilla Facility:[facility] Start: 11-12-2024 End: 11-12-2024 Bamboo flowsheet Kingsley Guido DPM Work Phone: [facility] Start: 11-12-2024 End: 11-12-2024 Bamboo flowsheet Kingsley Guido DPM Work Phone: [facility] Start: 11-12-2024 End: 11-12-2024 ambulatory KINGSLEY GUIDO Not Available Start: 10-30-2024 ambulatory Shaila Cordova Facility:[facility] Start: 10-26-2024 End: 10-26-2024 Bamboo flowsheet Kingsley Guido DPM Work Phone: [facility] Start: 10-26-2024 End: 10-26-2024 Bamboo flowsheet Kingsley Guido DPM Work Phone: [facility] Start: 10-26-2024 End: 10-26-2024 ambulatory KINGSLEY GUIDO Not Available Start: 10-26-2024 End: 10-26-2024 Office outpatient visit 15 minutes Kingsley Guido DPM Work Phone: [facility] Comment on above: Capsulitis of metata rsophalangeal (MTP) joint of left foot (Primary Dx); Verruca plantaris; Foot pain, right; Venous insufficiency; Capsulitis of metatarsophalangeal (MTP) joint of right foot; Acute gout of left ankle, unspecified cause Start: 04-21-2024 End: 04-21-2024 Bamboo flowsheet Elle Spivey MD Work Phone: [facility] Start: 04-21-2024 End: 04-21-2024 Bamboo flowsheet Elle Spivey MD Work Phone: [facility] Start: 04-21-2024 End: 04-21-2024 Office outpatient new 45 minutes Elle Spivey MD Work Phone: [facility] Comment on above: 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) Start: 04-21-2024 End: 04-21-2024 ambulatory ELLE SPIVEY Not Available Start: 11-23-2022 End: 11-23-2022 Patient encounter procedure Shaila Cordova [facility] Start: 06-26-2022 End: 06-26-2022 ambulatory Timmy Larsen Facility:[facility] Start: 06-26-2022 End: 06-26-2022 ambulatory MD Timmy Larsen Work Phone: [facility] Work Phone: Start: 06-26-2022 End: 06-26-2022 Patient encounter procedure MD Timmy Larsen Work Phone: [facility] [address] Start: 03-13-2021 End: 03-14-[address] DOCTOR QUINTANILLA Facility:[facility] Start: 12-09-2020 End: 12-09-2020 Refill CP Martin Dias Work Phone: [facility] Comment on above: Refill Request Start: 12-03-2020 End: 12-04-[address] DOCTOR QUINTANILLA Facility:[facility] Start: 11-04-2020 End: 11-05-[address] DOCTOR QUINTANILLA Facility:[facility] Procedures Date Procedure Procedure Detail Performing Clinician Start: 02-16-2025 Arthrocentesis aspir &/inj major jt/bursa w/o us Apolonia James DO Work Phone: Start: 01-01-2025 Colonoscopy Apolonia ryan DO Work Phone: Start: 01-01-2025 Colonoscopy Vilma S rogerio Start: 04-21-2024 Oph bmtry prtl coher intrfrmtry io lens pwr troy Spivey MD Work Phone: Start: 07-10-2022 End: 07-10-2022 Ophth medical xm&eval comprhnsv estab pt 1/> Combined forms of age-related cataract of both eyes Enrique Sam MD Work Phone: Comment on above: Combined forms of ag e-related cataract of both eyes (Primary Dx) Colonoscopy Shaila Cordova Plan of Treatment Date Care Activity Detail Author Start: 01-01-2035 Screening for malignant neoplasm of colon [facility] Start: 01-11-2025 End: 01-11-2025 Patient encounter procedure 01/11/2025 1:30 PM EDT Office Visit [facility] [address] [place] [phone] Kingsley Guido DPM [address] [address] [facility] Start: 12-24-2024 End: 12-24-2024 Patient encounter procedure 12/24/2024 8:50 AM EDT Office Visit [facility] [address] [place] [phone] Kingsley Guido DPM [address] [address] [facility] Start: 12-18-2024 End: 12-18-2024 Patient encounter procedure 12/18/2024 8:30 AM EDT Office Visit [facility] [address] [place] [phone] Apolonia James, [address] [place] [address] [facility] Start: 12-10-2024 End: 12-10-2024 Patient encounter procedure 12/10/2024 8:40 AM EDT Office Visit [facility] [address] [place] [phone] Kingsley Guido DPM [address] [address] Capsulitis of metatarsophalangeal (MTP) joint of left foot (Primary Dx); Capsulitis of metatarsophalangeal (MTP) joint of right foot; Verruca plantaris; Foot pain, right [facility] Comment on above: Capsulitis of metatarsophalangeal (MTP) joint of left foot (Primary Dx); Capsulitis of metatarsophalangeal (MTP) joint of right foot; Verruca plantaris; Foot pain, right Start: 11-12-2024 End: 11-12-2024 Patient encounter procedure 11/12/2024 8:40 AM EDT Office Visit [facility] [address] [facility] [address] [place] [address] Kingsley Guido DPM [address] [facility] [address] [place] [address] Capsulitis of metatarsophalangeal (MTP) joint of left foot (Primary Dx); Capsulitis of metatarsophalangeal (MTP) joint of right foot; Verruca plantaris; Foot pain, right; Venous insufficiency [facility] Comment on above: Capsulitis of metatarsophalangeal (MTP) joint of left foot (Primary Dx); Capsulitis of metatarsophalangeal (MTP) joint of right foot; Verruca plantaris; Foot pain, right; Venous insufficiency Start: 04-26-2024 Influenza vaccination Influenza Vaccine (#1) [facility] Start: 04-21-2024 End: 04-21-2024 Patient encounter procedure 04/21/2024 10:15 AM EDT Office Visit [facility] [address] [place] [address] Elle Spivey MD [address] [place] [address] Arrived [facility] Comment on above: Arrived Start: 2022 Pneumococcal Vaccine: 65+ Years (2 of 2 - PCV) Pneumococcal Vaccine: 65+ Years (2 of 2 - PCV) [facility] Start: 04-26-2022 Influenza vaccination INFLUENZA (#1) [facility] Start: 08-26-2021 DEPRESSION ASSESSMENT DEPRESSION ASSESSMENT [facility] Start: 06-19-2020 Pneumococcal Vaccine: 65+ Years (2 of 2 - PCV) Pneumococcal Vaccine: 65+ Years (2 of 2 - PCV) [facility] Start: 11-19-2007 SHINGRIX VACCINE (1 of 2) SHINGRIX VACCINE (1 of 2) [facility] Start: 09-05-2005 LIPID SCREEN LIPID SCREEN [facility] Start: 05-12-2004 DIABETES SCREEN DIABETES SCREEN [facility] Start: 2002 COLOGUARD (FIT-DNA) COLOGUARD (FIT-DNA) [facility] Start: 2002 Colonoscopy COLONOSCOPY [facility] Start: 2002 COLORECTAL CANCER SCREENING COLORECTAL CANCER SCREENING [facility] Start: [address] COLONOGRAPHY [facility] Start: 2002 FECAL OCCULT BLOOD FECAL OCCULT BLOOD [facility] Start: 2002 SIGMOIDOSCOPY SIGMOIDOSCOPY [facility] Start: 1997 Mammography MAMMOGRAM [facility] Start: 1997 Screening for malignant neoplasm of breast Mammogram [facility] Start: 11-19-1987 HPV TESTING HPV TESTING [facility] Start: 1978 PAP TESTING PAP TESTING [facility] Start: 1976 Urine microalbumin profile DTAP,TDAP,TD (1 - Tdap) [facility] Start: 11-19-1975 HEPATITIS C SCREENING HEPATITIS C SCREENING [facility] Start: 11-19-1975 HIV SCREENING HIV SCREENING [facility] Start: 11-19-1963 PNEUMOCOCCAL (1 - PCV) PNEUMOCOCCAL (1 - PCV) [facility] Start: 05-21-1958 COVID-19 VACCINE (#1) COVID-19 VACCINE (#1) [facility] Start: 1957 Screening for malignant neoplasm of colon [facility] Immunizations Immunization Date Immunization Notes Care Provider Fa cility 06-08-2021 influenza virus vacc ine, unspecified formulation Elle Spivey MD Work Phone: [facility] 12-05-2020 SARS-CoV-2 (COVID-19 ) Ad26 vaccine, recombinant Shaila Cordova [facility] Comment on above: Result Comment: 2024: [id number] 06-03-2020 influenza virus vacc ine, unspecified formulation Shaila Tasha [facility] 06-19-2019 influenza virus vacc ine, unspecified formulation Shaila Cordova [facility] 06-19-2019 pneumococcal polysaccharide vaccine, 23 valent Shaila Cordova [facility] Payers Date Payer Category Payer [facility] [id number] 2022 Unknown [id number] 2022 Self-pay 2020 Private Health Insurance [id number] 2019 Unknown [id number]. [id number] 1997 Private Health Insurance JAN DALY POS [id number] 1997-Present POS [id number] 1959 Unknown [id number] 1957 Unknown [id number] 2.16.840.1.081106.3.579.2.59 3 1957 Unknown [id number] 2.16.840.1.217710.3.579.2.59 3 1957 Unknown [id number] 2.16.840.1.853700.3.579.2.59 3 1957 Unknown [id number] 2.16.840.1.047332.3.579.2.72 7 1957 Unknown [id number] 2.16.840.1.453076.3.579.2.72 7 1957 Unknown [id number] 2.16.840.1.290957.3.579.2.72 7 1957 Unknown [id number] 2.16.840.1.747917.3.579.2.72 7 1957 Unknown [id number] 2.16.840.1.235676.3.579.2.72 7 1957 Unknown [id number] 2.16.840.1.389131.3.579.2.12 59 1957 Unknown [id number] 2.16.840.1.715045.3.579.2.12 59 1957 Unknown [id number] 2.16.840.1.038978.3.579.2.12 59 1957 Unknown [id number] 2.16.840.1.601531.3.579.2.12 59 1957 Unknown [id number] 2.16.840.1.110624.3.579.2.12 59 1957 Unknown [id number] 2.16.840.1.911218.3.579.2.12 59 1957 Unknown [id number] 2.16.840.1.552488.3.579.2.12 59 1957 Unknown [id number] 2.16.840.1.733458.3.579.2.12 59 Unknown [facility] [id number] Unknown [id number] 1 Social History Date Type Detail Facility Tobacco smoking stat us COIS Unknown if ever smoked [facility] Start: 1955 Sex Assigned At Not on file C [facility] Start: 1955 Sex Assigned At Female F [facility] Start: 08-26-1990 End: 04-21-2024 Tobacco smoking status NHIS Smokes tobacco daily [facility] Work Phone: Start: 08-26-1990 History of tobacco use Cigarette Smo ker [facility] Work Phone: Start: 07-10-2022 End: 02-16-2025 Cigarettes smoked current (pack per day) - Reported 1 [facility] Start: 07-10-2022 End: 04-21-2024 Tobacco use and exposure Smokeless tobacco non-user [facility] Work Phone: Start: 07-10-2022 Alcohol intake Lifetime non-d jesus (finding) [facility] Start: 11-04-2020 End: 02-05-2025 Tobacco smoking status Light tobacco smoker (finding) [facility] Start: 04-11-2023 End: 02-16-2025 Sex Assigned At Female [facility] History of tobacco use Passive smoker [facility] Start: 05-02-2023 End: 02-16-2025 Alcoholic beverage intake Ex-drinker (finding) [facility] Start: 03-06-2023 Alcohol Comment caffeine 2-3 c ups per day [facility] Tobacco smoking status Never [facility] Sexual Orientation [facility] Start: 12-07-2009 Sex Female (finding) [facility] NEGATED: Highlighted rowStart: NINF History of tobacco use Passive smoker [facility] Work Phone: Functional Status Date Assessment Result Facility 01-01-2025 Functional Status N/A [facility] Clinical Notes 07-10-2022 to 02-16-2025 Daly Archer MA - 02/16/2025 8:30 AM EDTIesha Walker - 02/16/2025 8:30 AM EDT Note Date & Type Note Facility 02-16-2025 History of Present illness Narrative Associated Order(s): L Inj/Asp: R knee Post-Procedure Diagnose(s): Bilateral primary osteoarthritis of knee L Inj/Asp: R knee on 02/16/2025 8:34 AM Indications: diagnostic evaluation Details: 22 G needle Medications: 6 mg betamethasone acetate-betamethasone sodium phosphate 6 (3-3) MG/ML Outcome: tolerated well, no immediate complications Consent was given by the patient. Images from the original note were not included. Aston Seymour is a 69 y.o. female presents with chief complaint of right knee pain and stiffness, requesting repeat cortisone injection. HPI: Aston is here for her right knee. She is currently taking the Lodine. She has been on Relafen and Mobic in the past. She does see Dr. Larsen with sero negative RA. Aston is here mainly for her right knee. She does see Dr. Larsen. She has been tried on Lodine, Relafen, Mobic. She has been on methyl prednisolone. She does have what they thought initially was PMR then there was some question of sero negative rheumatoid arthritis. She states she has even been on Methotrexate. She comes in today with knee pain, really more on the right knee. She gets swelling, stiffness and irritability. She is very nervous with the thought of injections. She is really not getting anywhere with her current regimen. If she sits for any period of time, she has difficulty getting up and moving. She has been working at her job for 20+ years and she is on her feet the majority of the day. Her left knee does cause some achiness and crepitance, but nothing as significant. SUBJECTIVE: MEDICATIONS: Current Outpatient Medications Medication Instructions alendronate (FOSAMAX) 35 mg, Every 7 days amLODIPine (NORVASC) 5 mg, Daily celecoxib (CELEBREX) 200 mg, 2 times daily cholecalciferol (Vitamin D-3) 50 MCG (1999) capsule Vitamin D etodolac (LODINE) 500 mg, 2 times daily leflunomide (ARAVA) 20 mg, Daily lisinopril 20 mg, Daily lisinopril 40 mg, Daily Multiple Vitamins-Minerals (multivitamin with iron-minerals) liquid Daily nabumetone (RELAFEN) 750 mg, 2 times daily Snwwtmcgwgi-Ambghbky-Gnjhhckim 1-0.5-0.075 % solution 1 drop, Ophthalmic, 4 times daily ALLERGIES: Allergies Allergen Reactions Cephalexin Unknown Yeast infection Penicillins Unknown FLU Codeine Rash SURGICAL HISTORY: Past Surgical History: Procedure Laterality Date EXTERNAL EAR SURGERY Left FINGER SURGERY Right right ring finger SINUS SURGERY TONSILECTOMY, ADENOIDECTOMY, BILATERAL MYRINGOTOMY AND TUBES FAMILY HISTORY: Family History Problem Relation Name Age of Onset Cancer Mother Diabetes Father Hypertension Father No Known Problems Maternal Grandmother No Known Problems Maternal Grandfather No Known Problems Paternal Grandmother No Known Problems Paternal Grandfather SOCIAL HISTORY: Social History Tobacco Use Smoking status: Every Day Types: Cigarettes Start date: 1990 Passive exposure: Current Smokeless tobacco: Never Substance Use Topics Alcohol use: Not Currently Comment: caffeine 2-3 cups per day Drug use: Never Depression: Not on file REVIEW OF SYMPTOMS: The review of systems, history and current medications list are all reviewed today. OBJECTIVE: Visit Vitals Ht 5' 7 Wt 206 lb BMI 32.26 kg/m Smoking Status Every Day BSA 2.1 m Physical Exam On physical exam, the bilateral knees have hypertrophic changes that are mild to moderate on the right, mild on the left. Neutral positioning. There is no rash or infection. The right knee does have a mild aseptic effusion. There is moderate to severe tenderness to the medial and patellofemoral joint on the right, more achy on the left. Crepitance is present of both. Grind test is positive on the right. Collateral ligaments are intact bilaterally. The right knee, she has a contracture of 2-3 degrees with flexion to 108. The left knee has full extension with flexion to 115. Her gait is stiff and antalgic with flexed posture. Her hip exam produces no groin pain or restriction on either side. X-rays, permanently saved to the patient's record, are reviewed. These are non weight bearing films taken through the [facility] dated 11-30-2024 shows bone on bone disease to the right patellofemoral joint that is grade IV. The left patellofemoral is grade III. The medial and lateral joints to both knees are grade III. The right knee is more intense appearing as compared to the left. There is no acute fracture, dislocation, tumor or infection seen. ASSESSMENT AND PLAN: Assessment/Plan Right knee osteoarthritis; sero negative rheumatoid arthritis. The nature of the findings were discussed at length. We discussed the terminal gauger supervisor definitive indication for total knee replacement. The incision, dissection, anatomy, time, healing, commitment and expectations were all reviewed. With consent from the patient today, the second injection was provided. This is with 1 cc of cortisone (3 mg of Betamethasone sodium phosphate with 3 mg of Betamethasone acetate) and 1 cc of 1% plain Lidocaine was injected. The patient tolerated the injection well from a seated sterile approach. We will get authorization for Visco supplementation for the next three to four weeks. She will continue with her Lodine from Dr. Larsen, ice and bracing. Fall precautions. Once again, fpc definitive treatment of total knee replacement was reviewed. She is discharged in stable condition. Numerous questions were answered. The patient was seen and examined. From the time of check in, nurse triage, vital signs, x-ray, x-ray interpretation, review of systems, comprehensive history and physical exam as well as setting up treatment plan and further management took 35 minutes. Cosigned by Apolonia James DO at 02/18/2025 4:49 PM EDT documented in this encounter [facility] 01-08-2025 Hospital Discharge instructions Follow Up Care 01/08/2025 08:58:52 With:Jose Rafael LINDER, KEMAR Espinal, [facility] Address: [address] [place] [address], [address] [address] [phone] When: only if needed [facility] 01-01-2025 Evaluation + Plan note Extrac solomon from: Title:ANES Post-operative Note - General Author: Niall Zazueta Jr., DO Date:01/01/25 Plan Transfer/Discharge: Transfer/Discharge Discharge when meets criteria ( From PACU to Ambulatory Surgery Unit, and To home ). Extracted from: Title:1Preop H&P Author:Vilma Mantilla MD Date:01/01/25 Impression and Plan Impression: Colon polyps Plan: - Colonoscopy Extracted from: Title:ANEJose Pre-operative Note - Endo Author:Niall Gutierrez Jr., DO Date:01/01/25 Plan [place] [employer] (ASA) physical status classification: Class III. Anesthetic Preoperative Plan: Anesthesia General, and -TIVA. [facility] [id number] Hospital Discharge instructions Patient Education 01/01/2025 09:57:47 Diverticulosis MAGR (CUSTOM) Diverticulosis Many people have small pouches in their colon called diverticulum. The diverticulum bulge outward through weak spots in the colon. You could have one or more of these pouches in the colon. The condition of having these pouches in the colon is called diverticulosis or diverticular disease. Diverticulosis is usually diagnosed by tests to evaluate something else. For example, you may have had a colonoscopy to screen for colon cancer when the diverticulosis was found. Most people with diverticulosis do not have any discomfort or problems. If symptoms develop, they may include mild cramps, bloating, and constipation. A complication of this condition is called diverticulitis. This is when the diverticulum become inflamed and infected. How to treat diverticulosis: Increasing the amount of fiber in the diet may reduce symptoms of diverticulosis and prevent complications such as diverticulitis (infected diverticuli). Fiber keeps stool soft and lowers pressure inside the colon so that bowel contents can move througheasily. You should eat 20 to 35 grams of fiber each day. The table below shows the amount of fiber in some foods that you can easily add to your diet. Adding fiber slowly may decrease the bloating and fullness sometimes felt with an immediate high fiber diet. The doctor may also recommend taking a fiber product such as Citrucel or Metamucil once a day. In the past people with diverticulosis were to avoid nuts, corn, and seeds. This has not been foundto be true. If you find that certain foods create cramping or bloating, avoid that food. Foods high in fiber include: Fresh fruits, fresh vegetables, legumes (beans), whole wheat bread, bran muffins or cereal, and nuts. See the table below for examples of high fiber foods. Remember, your goal is 20- 35 grams per day. Amount of fiber in different foods Food Serving Grams of fiber Fruits Apple (with skin) 1 medium apple 4.4 Banana 1 medium banana 3.1 Oranges 1 orange 3.1 Prunes 1 cup, pitted 12.4 Juices Apple, unsweetened, w/added ascorbic acid 1 cup 0.5 Grapefruit, white, canned, sweetened 1 cup 0.2 Grape, unsweetened, w/added ascorbic acid 1 cup 0.5 [place] 1 cup 0.7 Vegetables Cooked Green beans 1 cup 4.0 Carrots 1/2 cup sliced 2.3 Peas 1 cup 8.8 Potato (baked, with skin) 1 medium potato 3.8 Raw Depauw (with peel) 1 cucumber 1.5 Lettuce 1 cup shredded 0.5 Tomato 1 medium tomato 1.5 Spinach 1 cup 0.7 Legumes Baked beans, canned, no salt added 1 cup 13.9 Kidney beans, canned 1 cup 13.6 Hartman beans, canned 1 cup 11.6 Lentils, boiled 1 cup 15.6 Breads, pastas, flours Bran muffins 1 medium muffin 5.2 Oatmeal, cooked 1 cup 4.0 White bread 1 slice 0.6 Whole-wheat bread 1 slice 1.9 Pasta and rice, cooked Macaroni 1 cup 2.5 Rice, brown 1 cup 3.5 Rice, white 1 cup 0.6 Spaghetti (regular) 1 cup 2.5 Nuts Almonds 1/2 cup 8.7 Peanuts 1/2 cup 7.9 Chart from [facility] 2013. SEEK IMMEDIATE MEDICAL CARE IF: You develop abdominal (belly) pain. An oral temperature above _ 101 F__develops. Repeated vomiting occurs. Blood is being passed in stools (bright red or black tarry stools). You develop any bowel problems or changes which you have not had before. Extra Information: To learn how much fiber and other nutrients are in different foods, visit the [place] Department of Agriculture (USDA) National Nutrient Database at: http://www.nal.usda.gov/fnic/foodcomp/search/ Created using data from the USDA National Nutrient Database for Standard Reference. Available at http://www.nal.usda.gov/fnic/foodcomp/search/. Information adapted from: ExitCare Patient Information 2009 [employer]. [employer] 2012 http://www.Novinda/contents/splhanzocghb-jorhkvr-igmcqy-the-basics 01/01/2025 09:57:39 Colon Polyps Colon Polyps Colon polyps are tissue growths inside the colon, which is part of the large intestine. They are one of the types of polyps that can grow in the body. A polyp may be a round bump or a mushroom-shapedgrowth. You could have one polyp or more than one. Most colon polyps are noncancerous (benign). However, some colon polyps can become cancerous over time. Finding and removing the polyps early can help prevent this. What are the causes? The exact cause of colon polyps is not known. What increases the risk? The following factors may make you more likely to develop this condition: Having a family history of colorectal cancer or colon polyps. Being older than 45 years of age. Being younger than 45 years of age and having a significant family history of colorectal cancer or colon polyps or a genetic condition that puts you at higher risk of getting colon polyps. Having inflammatory bowel disease, such as ulcerative colitis or Crohn's disease. Having certain conditions passed from parent to child (hereditary conditions), such as: ?Familial adenomatous polyposis (FAP). ?Michele syndrome. ?Turcot syndrome. ?Peutz Jeghers syndrome. ?MUTYH-associated polyposis (MAP). Being overweight. Certain lifestyle factors. These include smoking cigarettes, drinking too much alcohol, not gettingenough exercise, and eating a diet that is high in fat and red meat and low in fiber. Having had childhood cancer that was treated with radiation of the abdomen. What are the signs or symptoms? Many times, there are no symptoms. If you have symptoms, they may include: Blood coming from the rectum during a bowel movement. Blood in the stool (feces). The blood may be bright red or very dark in color. Pain in the abdomen. A change in bowel habits, such as constipation or diarrhea. How is this diagnosed? This condition is diagnosed with a colonoscopy. This is a procedure in which a lighted, flexible scope is inserted into the opening between the buttocks (anus) and then passed into the colon to examine the area. Polyps are sometimes found when a colonoscopy is done as part of routine cancer screening tests. How is this treated? This condition is treated by removing any polyps that are found. Most polyps can be removed during a colonoscopy. Those polyps will then be tested for cancer. Additional treatment may be needed depending on the results of testing. Follow these instructions at home: Eating and drinking Eat foods that are high in fiber, such as fruits, vegetables, and whole grains. Eat foods that are high in calcium and vitamin D, such as milk, cheese, yogurt, eggs, liver, fish, and broccoli. Limit foods that are high in fat, such as fried foods and desserts. Limit the amount of red meat, precooked or cured meat, or other processed meat that you eat, such as hot dogs, sausages, dietrich, or meat loaves. Limit sugary drinks. Lifestyle Maintain a healthy weight, or lose weight if recommended by your health care provider. Exercise every day or as told by your health care provider. Do not use any products that contain nicotine or tobacco, such as cigarettes, e- cigarettes, and chewing tobacco. If you need help quitting, ask your health care provider. Do not drink alcohol if: ?Your health care provider tells you not to drink. ?You are , may be , or are planning to become . If you drink alcohol: ?Limit how much you use to: ?0 1 drink a day for women. ?0 2 drinks a day for men. ?Know how much alcohol is in your drink. In the [place] one drink equals one 12 oz bottle of beer (355 mL), one 5 oz glass of wine (148 mL), or one 1 oz glass of hard liquor (44 mL). General instructions Take extm-zuv-pekodti and prescription medicines only as told by your health care provider. Keep all follow-up visits. This is important. This includes having regularly scheduled colonoscopies. Talk to your health care provider about when you need a colonoscopy. Contact a health care provider if: You have new or worsening bleeding during a bowel movement. You have new or increased blood in your stool. You have a change in bowel habits. You lose weight for no known reason. Summary Colon polyps are tissue growths inside the colon, which is part of the large intestine. They are one type of polyp that can grow in the body. Most colon polyps are noncancerous (benign), but some can become cancerous over time. This condition is diagnosed with a colonoscopy. This condition is treated by removing any polyps that are found. Most polyps can be removed during a colonoscopy. This information is not intended to replace advice given to you by your health care provider. Make sure you discuss any questions you have with your health care provider. Document Revised: 11/30/2020 Document Reviewed: 11/30/2020 [employer] Patient Education 2023 [employer]. 01/01/2025 09:57:38 Colonoscopy, Care After Surgery Salam (CUSTOM) Colonoscopy Care After Surgery Please read the instructions outlined below and refer to this sheet in the next few weeks. These discharge instructions provide you with general information on caring for yourself after you leave thespital. Your doctor may also give you specific instructions. While your treatment has been planned according to the most current medical practices available, unavoidable complications occasionally occur. If you have any problems or questions after discharge, please call your doctor. ACTIVITY You may resume your regular activity, but move at a slower pace for the next 24 hours. Take frequent rest periods for the next 24 hours. Walking will help get rid of the air and reduce the bloated feeling in your abdomen (belly). No driving for 24 hours (because of the anesthesia (medicine) used during the test). You may shower. Do not sign any important legal documents or operate any machinery for 24 hours (because of the anesthesia used during the test). NUTRITION Drink plenty of fluids. You may resume your normal diet as instructed by your doctor. Begin with a light meal and progress to your normal diet. Heavy or fried foods are harder to digestand may make you feel nauseated (sick to your stomach). Avoid alcoholic beverages for 24 hours or as instructed. MEDICATIONS You may resume your normal medications unless your doctor tells you otherwise. WHAT YOU CAN EXPECT TODAY Some feelings of bloating in the abdomen. Passage of more gas than usual. Spotting of blood in your stool or on the toilet paper. FOLLOW-UP Your doctor will discuss the results of your test with you. SEEK IMMEDIATE MEDICAL ATTENTION IF: There is more than a spotting of blood in your stool. There is abdominal distention (your abdomen is swollen). There is vomiting. You have a temperature over 101.5 F. There is abdominal pain or discomfort that is severe or gets worse throughout the day. Follow Up Care 11/23/2024 13:03:29 With:Vilma Mantilla Address: Zulma Victor, [facility] [address] [address] [phone] Business (1) When: Unknown Comments:Call for any problems. [facility] 05-09-2025 NoteProgress Note-Physician Patient: ASTON SEYMOUR Age: 69 years Sex: Female : 1955 Associated Diagnoses: None Author: Niall Zazueta Jr., DO Postoperative Information Postoperative disposition: Postoperative disposition: Home. Optimetrix number: Optimetrix number [id number]. Anesthetic utilized: General. Physical Examination Vital Signs 01/01/2025 10:05 EDT Heart Rate Monitored 69 bpm Respiratory Rate Monitored 21 br/min 01/01/2025 10:05 EDT SpO2 100 % 01/01/2025 10:05 EDT Systolic Blood Pressure 136 mmHg Diastolic Blood Pressure 99 mmHg HI Blood Pressure Location Left arm Mean Arterial Pressure, Cuff 111 mmHg 01/01/2025 9:55 EDT Heart Rate Monitored 68 bpm Respiratory Rate Monitored 27 br/min SpO2 96 % 01/01/2025 9:55 EDT Systolic Blood Pressure 114 mmHg Diastolic Blood Pressure 71 mmHg Blood Pressure Location Left arm Mean Arterial Pressure, Cuff 85 mmHg 01/01/2025 9:50 EDT Heart Rate Monitored 72 bpm SpO2 94 % 01/01/2025 9:50 EDT Respiratory Rate Monitored 17 br/min 01/01/2025 9:50 EDT Systolic Blood Pressure 80 mmHg LOW Diastolic Blood Pressure 64 mmHg Blood Pressure Location Left arm Mean Arterial Pressure, Cuff 69 mmHg 01/01/2025 9:47 EDT Heart Rate Monitored 68 bpm 01/01/2025 9:47 EDT Respiratory Rate Monitored 31 br/min SpO2 96 % 01/01/2025 9:47 EDT Systolic Blood Pressure 176 mmHg HI Diastolic Blood Pressure 139 mmHg HI 01/01/2025 9:47 EDT Temperature Temporal Artery 36.8 DegC Blood Pressure Location Left arm Mean Arterial Pressure, Cuff 151 mmHg Pain Assessment: Controlled. General: Awake, Alert, Appropriate. Respiratory: Adequate air exchange, Non-labored. Cardiovascular: Stable, Normal peripheral perfusion. Neurological: Neurologic exam at baseline. No changes.. Assessment Anesthetic outcome No anesthetic complications noted. No nausea/vomiting. Review / Management Condition: Stable. Plan Transfer/Discharge: Transfer/Discharge Discharge when meets criteria ( From PACU to Ambulatory Surgery Unit, and To home ).[facility] CenterComment on above:Result Comment: Electronically Signed By: Niall Zazueta Jr., DO\.br\Date and Time Signed: 01/01/25 10:27 [id number] NotePatient Education - Text Diverticulosis Many people have small pouches in their colon called diverticulum. The diverticulum bulge outward through weak spots in the colon. You could have one or more of these pouches in the colon. The condition of having these pouches in the colon is called diverticulosis or diverticular disease. Diverticulosis is usually diagnosed by tests to evaluate something else. For example, you may have had a colonoscopy to screen for colon cancer when the diverticulosis was found. Most people with diverticulosis do not have any discomfort or problems. If symptoms develop, they may include mild cramps, bloating, and constipation. A complication of this condition is called diverticulitis. This is when the diverticulum become inflamed and infected. How to treat diverticulosis: Increasing the amount of fiber in the diet may reduce symptoms of diverticulosis and prevent complications such as diverticulitis (infected diverticuli). Fiber keeps stool soft and lowers pressure inside the colon so that bowel contents can move througheasily. You should eat 20 to 35 grams of fiber each day. The table below shows the amount of fiber in some foods that you can easily add to your diet. Adding fiber slowly may decrease the bloating and fullness sometimes felt with an immediate high fiber diet. The doctor may also recommend taking a fiber product such as Citrucel or Metamucil once a day. In the past people with diverticulosis were to avoid nuts, corn, and seeds. This has not been foundto be true. If you find that certain foods create cramping or bloating, avoid that food. Foods high in fiber include: Fresh fruits, fresh vegetables, legumes (beans), whole wheat bread, bran muffins or cereal, and nuts. See the table below for examples of high fiber foods. Remember, your goal is 20- 35 grams per day. Amount of fiber in different foods Food Serving Grams of fiber Fruits Apple (with skin) 1 medium apple 4.4 Banana 1 medium banana 3.1 Oranges 1 orange 3.1 Prunes 1 cup, pitted 12.4 Juices Apple, unsweetened, w/added ascorbic acid 1 cup 0.5 Grapefruit, white, canned, sweetened 1 cup 0.2 Grape, unsweetened, w/added ascorbic acid 1 cup 0.5 [place] 1 cup 0.7 Vegetables Cooked Green beans 1 cup 4.0 Carrots 1/2 cup sliced 2.3 Peas 1 cup 8.8 Potato (baked, with skin) 1 medium potato 3.8 Raw [place] (with peel) 1 cucumber 1.5 Lettuce 1 cup shredded 0.5 Tomato 1 medium tomato 1.5 Spinach 1 cup 0.7 Legumes Baked beans, canned, no salt added 1 cup 13.9 Kidney beans, canned 1 cup 13.6 Hartman beans, canned 1 cup 11.6 Lentils, boiled 1 cup 15.6 Breads, pastas, flours Bran muffins 1 medium muffin 5.2 Oatmeal, cooked 1 cup 4.0 White bread 1 slice 0.6 Whole-wheat bread 1 slice 1.9 Pasta and rice, cooked Macaroni 1 cup 2.5 Rice, brown 1 cup 3.5 Rice, white 1 cup 0.6 Spaghetti (regular) 1 cup 2.5 Nuts Almonds 1/2 cup 8.7 Peanuts 1/2 cup 7.9 Chart from [facility] 2013. SEEK IMMEDIATE MEDICAL CARE IF: You develop abdominal (belly) pain. An oral temperature above _ 101??? F__develops. Repeated vomiting occurs. Blood is being passed in stools (bright red or black tarry stools). You develop any bowel problems or changes which you have not had before. Extra Information: To learn how much fiber and other nutrients are in different foods, visit the [place] Department of Agriculture (USDA) National Nutrient Database at: http://www.nal.usda.gov/fnic/foodcomp/search/ Created using data from the USDA National Nutrient Database for Standard Reference. Available at http://www.nal.usda.gov/fnic/foodcomp/search/. Information adapted from: ExitCare??? Patient Information ???2009 [employer] [facility]. [facility] 2012 [email or web address] Colonoscopy Care After Surgery Please read the instructions outlined below and refer to this sheet in the next few weeks. These discharge instructions provide you with general information on caring for yourself after you leave thehospital. Your doctor may also give you specific instructions. While your treatment has been planned according to the most current medical practices available, unavoidable complications occasionally occur. If you have any problems or questions after discharge, please call your doctor. ACTIVITY You may resume your regular activity, but move at a slower pace for the next 24 hours. Take frequent rest periods for the next 24 hours. Walking will help get rid of the air and reduce the bloated feeling in your abdomen (belly). No driving for 24 hours (because of the anesthesia (medicine) used during the test). You may shower. Do not sign any important legal documents or operate any machinery for 24 hours (because of the anesthesia used during the test). NUTRITION Drink plenty of fluids. You may resume your normal diet as instructed by your doctor. Beg (more content not included)...[facility]05[facility] Note Endoscopic Procedure Report - Other Patient: ASTON SEYMOUR Age: 69 years Sex: Female : 1955 Associated Diagnoses: None Author: Vilma Mantilla MD Pre-Procedure Procedure Date 01/01/2025 09:45:00 . Procedure Type: Colonoscopy with removal of tumor(s), polyp(s), or other lesion(s) by cold snare technique. Procedure provider Performed by Vilma Mantilla MD. Current history and physical Reviewed. Colonoscopy ([id number]).. Past Medical History Resolved Hypertension ([id number]): Resolved. Impaired fasting glucose (3028726632): Resolved. Depressed (513317201): Resolved.. Family History Primary malignant neoplasm of female breast Mother . Procedure History Colonoscopy ([id number]).. Colorectal neoplasm risk assessment High risk Previous history of polyps. . Informed Consent After discussing the rationale, risks and benefits, and alternatives to this procedure, the patient provided signed consent for the procedure. Pre-procedure diagnosis: History of colon polyps. Medications (Selected) Inpatient Medications Ordered Sodium Chloride 0.9% IV Judy 1000 mL 1,000 mL: 1,000 mL, IV, 20 mL/hr, Routine, Start date 01/01/25 6:41:00 EDT, 50 hour(s), Total volume (mL): 1,000 Prescriptions Prescribed Metamucil 3.4 g/5.2 g oral powder: 3.4 gram, Oral, TID, PRN for constipation, # 1,042 gram, Refills(s) 3, Pharmacy: [facility]/pharmacy #[id number], 172, cm, 11/23/24 8:31:00 EDT, Height/Length Dosing, 95.3, kg, 11/23/24 8:31:00 EDT, Weight Dosing Documented Medications Documented acetaminophen: 1,000 mg, TID, Refills(s) 0, Pain alendronate 35 mg Tab: 12 EA, 0 Refill(s), PLEASE SEE ATTACHED FOR DETAILED DIRECTIONS, Refills(s) 0, Other (see comment) leflunomide 20 mg Tab: 90 EA, 0 Refill(s), TAKE 1 TABLET BY MOUTH EVERY DAY, Refills(s) 0, Other (see comment) lisinopril 40 mg Tab: 90 EA, 0 Refill(s), TAKE 1 TABLET BY MOUTH EVERY DAY, Refills(s) 0, High blood pressure ASA Classification: Class II. . Monitoring: See anesthesia record. . Procedure The procedure was performed in the hospital. See anesthesia record for sedation given during procedure. The patient was positioned starting in the left lateral decubitus position. Endoscope type usedwas an adult-size. The endoscope was lubricated then introduced through the anus. The scope was advanced to the terminal ileum. No difficulties encountered during the procedure. The bowel preparationquality was adequate (see polyps greater than or equal to 6 millimeters). The patient tolerated theprocedure well. Time to Cecum: 3 min Withdrawal time 13 min Findings 1. Small internal hemorrhoids 2. Mild sigmoid diverticulosis 3. 6 sessile polyps in the transverse colon, 3-7 mm in size, resected with cold snare completely and retrieved. 1 clip was placed at the polypectomy site to prevent delayed bleeding, resected with cold snare completely and retrieved. 1 clip was placed at the polypectomy site to prevent delayed bleeding 4. 2 cm lipoma in the cecum 5. Normal examined terminal Images Procedure images: [id number]_hd_video_2024__[id number].jpg Rec1_hd_video_2024__[id number].jpg Rec1_hd_video_2024__[id number].jpg Rec1_hd_video_2024__[id number].jpg Rec1_hd_video_2024__[id number].jpg Rec1_hd_video_2024__[id number].jpg Rec1_hd_video_2024__[id number].jpg Rec1_hd_video_2024__[id number].jpg Rec1_hd_video_2024__[id number]_[id number].jpg Rec1_hd_video_2024__09T08_[id number].jpg Rec1_hd_video_2024__09T08_[id number].jpg Rec1_hd_video_2024__[id number]_[id number].jpg . Post-Procedure Complications: none. Estimated blood loss: Minimal. Specimens: sent to pathology. Devices/ implants: clips. Impression and Plan 1. Small internal hemorrhoids 2. Mild sigmoid diverticulosis 3. 6 sessile polyps in the transverse colon, 3-7 mm in size, resected with cold snare completely and retrieved. 1 clip was placed at the polypectomy site to prevent delayed bleeding, resected with cold snare completely and retrieved. 1 clip was placed at the polypectomy site to prevent delayed bleeding 4. 2 cm lipoma in the cecum 5. Normal examined terminal Recommendations: Repeat colonoscopy:: In 3 years. Follow-up:: in clinic for 1-2 weeks when pathology is available. Diet:: Previous. Medication resumption:: Continue current medications, Avoid NSAIDs. Return to activities:: After 24 hours. Education and Follow-up: Counseled: Patient, Family.[facility] Comment on above:Result Comment: Electronically Signed By: Vilma Mantilla MD\.br\Date and Time Signed: 01/01/25 09:49 EDTOther Comment: Missing Attachment - attachment storage system not supported [id number] Can be viewed in source systemMissing Attachment - attachment storage system not supported [id number] Can be viewed insource systemMissing Attachment - attachment storage system not supported [id number] Can be viewed in source systemMissing Attachment - attachment storage system not supported [id number] Can be viewed in source systemMissing Attachment - attachment storage system not supported [id number] Can be viewed in source systemMissing Attachment - attachment storage system not supported [id number] Can be viewed in source systemMissing Attachment - attachment storage system not supported [id number] Can be viewed in source systemMissing Attachment - attachment storage system not supported [id number] Can be viewed in source systemMissing Attachment - attachment storage system not supported [id number] Can be viewed in sourcesystemMissing Attachment - attachment storage system not supported [id number] Can be viewed in source systemMissing Attachment - attachment storage system not supported [id number] Can be viewed in source sy stemMissing Attachment - attachment storage system not supported [id number] Can be viewed in source [id number] NoteHistory and Physical Patient: ASTON SEYMOUR Age: 69 years Sex: Female : 1955 Associated Diagnoses: None Author: Vilma Mantilla MD Preoperative Information Indication for procedure and diagnosis: Colon polyps Chief Complaint as above Review of Systems All systems reviewed, negative except as mentioned above Health Status Current medications: (Selected) Inpatient Medications Ordered Sodium Chloride 0.9% IV Judy 1000 mL 1,000 mL: 1,000 mL, IV, 20 mL/hr, Routine, Start date 01/01/25 6:41:00 EDT, 50 hour(s), Total volume (mL): 1,000 Prescriptions Prescribed Metamucil 3.4 g/5.2 g oral powder: 3.4 gram, Oral, TID, PRN for constipation, # 1,042 gram, Refills(s) 3, Pharmacy: [facility]/pharmacy #[id number], 172, cm, 11/23/24 8:31:00 EDT, Height/Length Dosing, 95.3, kg, 11/23/24 8:31:00 EDT, Weight Dosing Documented Medications Documented acetaminophen: 1,000 mg, TID, Refills(s) 0, Pain alendronate 35 mg Tab: 12 EA, 0 Refill(s), PLEASE SEE ATTACHED FOR DETAILED DIRECTIONS, Refills(s) 0, Other (see comment) leflunomide 20 mg Tab: 90 EA, 0 Refill(s), TAKE 1 TABLET BY MOUTH EVERY DAY, Refills(s) 0, Other (see comment) lisinopril 40 mg Tab: 90 EA, 0 Refill(s), TAKE 1 TABLET BY MOUTH EVERY DAY, Refills(s) 0, High blood pressure, Home Medications (5) Active acetaminophen 1,000 mg, TID alendronate 35 mg Tab leflunomide 20 mg Tab lisinopril 40 mg Tab Metamucil 3.4 g/5.2 g oral powder 3.4 gram, PRN, Oral, TID Problem list: All Problems Obesity / SNOMED CT [id number] / Confirmed Smoker / SNOMED CT 400660435 / Confirmed Added secondary to documentation in Social History. Gouty arthritis of left ankle / SNOMED CT 0644583813 / Confirmed Impaired fasting glycemia / SNOMED CT 4292500233 / Confirmed Verruca plantaris / SNOMED CT 494047227 / Confirmed Vascular insufficiency / SNOMED CT 238309412 / Confirmed Hyperlipidemia / SNOMED CT 79690238 / Confirmed History of colon polyps / SNOMED CT 8729438191 / Confirmed Diverticulosis / SNOMED CT 2649600761 / Confirmed Histories Past Medical History: Resolved Hypertension (55596218): Resolved. Impaired fasting glucose (9384469063): Resolved. Depressed (239093604): Resolved. Family History: Mother Primary malignant neoplasm of female breast Procedure history: Colonoscopy (538523556). Social History Social & Psychosocial Habits Tobacco 11/23/2024 Risk Assessment: High Risk 11/23/2024 Tobacco Use: 5-9 cigarettes (between 1 Smokeless tobacco use: Never Type: Cigarettes . Physical Examination Vital Signs (last 24 hrs) Last Charted Temp Temporal 36.3 DegC (JANUARY 01 08:15) Heart Rate Monitored 74 bpm (JANUARY 01 08:15) SBP 111 mmHg (JANUARY 01 08:15) DBP 70 mmHg (JANUARY 01 08:15) Weight 95.3 kg (JANUARY 01:23) BMI 32.21 (JANUARY 01:23) General: in Nad Abdomen: Soft, NTND Impression and Plan Impression: Colon polyps Plan: - [facility]oscopyAs[facility] CenterComment on above:Result Comment: Electronically Signed By: Jose Rafael LINDER, Vilma Davis\.br\Date and Time Signed: 01/01/25 09:20 [id number] NoteProgress Note-Physician Patient: ASTON SEYMOUR Age: 69 years Sex: Female : 1955 Associated Diagnoses: None Author: Niall Zazueta Jr., DO Preoperative Information Anesthesia history: Patient history: No prior anesthetic problems. Informed consent: Signed by patient. Re-evaluation prior to induction: Initial evaluation reviewed: No significant change. Review of Systems Respiratory: Negative except as documented in history of present illness. Cardiovascular: Negative except as documented in history of present illness. Health Status Allergies: Allergic Reactions (Selected) Severity Not Documented Codeine- No reactions were documented., Allergies (1) Active Severity Reaction codeine None Documented Current medications: (Selected) Inpatient Medications Ordered Sodium Chloride 0.9% IV Judy 1000 mL 1,000 mL: 1,000 mL, IV, 20 mL/hr, Routine, Start date 01/01/25 6:41:00 EDT, 50 hour(s), Total volume (mL): 1,000 Prescriptions Prescribed Metamucil 3.4 g/5.2 g oral powder: 3.4 gram, Oral, TID, PRN for constipation, # 1,042 gram, Refills(s) 3, Pharmacy: [facility]/pharmacy #[id number], 172, cm, 11/23/24 8:31:00 EDT, Height/Length Dosing, 95.3, kg, 11/23/24 8:31:00 EDT, Weight Dosing NuLYTELY [place] oral powder for reconstitution: See Instructions, 1 EA, Refill(s) 0, follow up physicians radhactdottie, [facility]/pharmacy #[id number], 172, cm, 11/23/24 8:31:00 EDT, Height/Length Dosing, 95.3,kg, 11/23/24 8:31:00 EDT, Weight Dosing Documented Medications Documented acetaminophen: 1,000 mg, TID, Refills(s) 0, Pain alendronate 35 mg Tab: 12 EA, 0 Refill(s), PLEASE SEE ATTACHED FOR DETAILED DIRECTIONS, Refills(s) 0, Other (see comment) celecoxib 200 mg Cap: take 1 capsule by mouth twice a day, Arthritis leflunomide 20 mg Tab: 90 EA, 0 Refill(s), TAKE 1 TABLET BY MOUTH EVERY DAY, Refills(s) 0, Other (see comment) lisinopril 40 mg Tab: 90 EA, 0 Refill(s), TAKE 1 TABLET BY MOUTH EVERY DAY, Refills(s) 0, High blood pressure, Home Medications (7) Active acetaminophen 1,000 mg, TID alendronate 35 mg Tab celecoxib 200 mg Cap leflunomide 20 mg Tab lisinopril 40 mg Tab Metamucil 3.4 g/5.2 g oral powder 3.4 gram, PRN, Oral, TID NuLYTELY [place] oral powder for reconstitution See Instructions , Medications (1) Active Scheduled: (0) Continuous: (1) Sodium Chloride 0.9% 1,000 mL 1,000 mL, IV, 20 mL/hr PRN: (0) Problem list: All Problems Diverticulosis / SNOMED CT 4029768975 / Confirmed Gouty arthritis of left ankle / SNOMED CT 7868531895 / Confirmed History of colon polyps / SNOMED CT 9529378358 / Confirmed Hyperlipidemia / SNOMED CT 59532517 / Confirmed Impaired fasting glycemia / SNOMED CT 3498352856 / Confirmed Obesity / SNOMED CT [id number] / Confirmed Smoker / SNOMED CT 394843709 / Confirmed Added secondary to documentation in Social History. Vascular insufficiency / SNOMED CT 101913963 / Confirmed Verruca plantaris / SNOMED CT 240974139 / Confirmed Resolved: Depressed / SNOMED CT 306968303 Resolved: Hypertension / SNOMED CT 55206750 Resolved: Impaired fasting glucose / SNOMED CT 6051082355 Histories Past Medical History: Resolved Hypertension (87143204): Resolved. Impaired fasting glucose (1476845493): Resolved. Depressed (787894008): Resolved. Procedure history: Colonoscopy (229921445). Social History Social & Psychosocial Habits Tobacco 11/23/2024 Risk Assessment: High Risk 11/23/2024 Tobacco Use: 5-9 cigarettes (between 1 Smokeless tobacco use: Never Type: Cigarettes . Physical Examination VS/Measurements Airway: Mallampati classification: II (soft palate, fauces, uvula visible). Respiratory: Lungs are clear to auscultation, Respirations are non-labored. Cardiovascular: Regular rhythm. Plan [place] [employer]esthesi[employer] (ASA) physical status classification: Class III. Anesthetic Preoperative Plan: Anesthesia General, and -TIVA.[facility] CenterComment on above:Result Comment: Electronically Signed By: Niall Zazueta Jr., DO.denice\Date and Time Signed: 01/01/25 08:12 [id number] History of Present illness Narrative* Kingsley Guido DPM - 12/24/2024 8:50 AM EDT Patient: Aston Seymour : 1955 PCP: Shaila Cordova MD SUBJECTIVE Pt presents today for follow up of capsulitis and synovitis to the right 4th metatarsal cuboid joint and ligaments Currently they rate their pain on a 1-10 scale a 4 States prior treatments of steroid injection and nsaids with recent fitting of orthotics and breaking them in with improvement. States pain is aggrevated with WB. Pt has similar condition to the left foot. Patient presents today for follow up of skin lesion/neoplasm of unknown origin to the right foot Pt states that previous treatment of acid tx with some improvement Pt rates pain the pain on a 1-10 scale an intensity of 2 Pt presents today for followup. Pt also has history of venous stasis to b/l lower extremities Allergies: Allergies Allergen Reactions Cephalexin Unknown Yeast infection Penicillins Unknown FLU Codeine Rash Past Medical History: Past Medical History: Diagnosis Date DDD (degenerative disc disease), cervical Depression (CMS/HCC) Difficulty walking Gout Hypercholesteremia (CMS/HCC) Hypertension (CMS/HCC) PMR (polymyalgia rheumatica) (CMS/[facility]) Pre-diabetes Medications: Current Outpatient Medications: alendronate (Fosamax) 35 MG tablet, Take 35 mg by mouth every 7 (seven) days., Disp: , Rfl: celecoxib (CeleBREX) 200 MG capsule, Take 200 mg by mouth in the morning and 200 mg before bedtime., Disp: , Rfl: leflunomide (Arava) 20 MG tablet, Take 20 mg by mouth in the morning., Disp: , Rfl: lisinopril 20 MG tablet, Take 20 mg by mouth in the morning., Disp: , Rfl: lisinopril 40 MG tablet, Take 40 mg by mouth Daily, Disp: , Rfl: methylPREDNISolone (Medrol Dospak) 4 MG tablets, Follow schedule on MEDROL PACK package instructions to be used as directed, Disp: 21 tablet, Rfl: 0 Xdlmeadictv-Ovajkdiu-Ttacofrso 1-0.5-0.075 % solution, Administer 1 drop into affected eye(s) in the morning and 1 drop at noon and 1 drop in the evening and 1 drop before bedtime., Disp: 10 mL, Rfl:1 ROS: General: denies fever, chills, fatigue, malaise GI: denies abdominal pain or ulcerations with anti-inflammatory medication Musculoskeletal: Positive history of polymyalgia rheumatica with generalized arthritis OBJECTIVE LE EXAM: DERM: Positive hair growth to b/l feet with good skin turgor noted. Negative openings in skin. +1 positive edema bilateral feet and ankles Nummular lesion measuring at the right sub 5th metatarsal base region measuring 0.09 cm x 0.08 cm. VASC: Palpable pedal pulsed b/l with warm to cool tibia to toes b/l NEURO: Gross sensation intact digits 1-10 and b/l feet ORTHO: +5/5 DF/PF/IN/EV right, +5/5 DF/PF/IN/EV left. 20 degrees inversion and 10 degrees eversion STJ b/l. Ankle ROM less than 10 degrees b/l. Positive pain on palpation to the right foot lesion diminished pain on palpation to right 4th and 5th metatarsal cuboid joint ligaments diminished pain on palpation to left 4th and 5th metatarsal cuboid joint ligaments ASSESSMENT 1. Capsulitis of metatarsophalangeal (MTP) joint of left foot 2. Capsulitis of metatarsophalangeal (MTP) joint of right foot 3. Verruca plantaris 4. Foot pain, right PLAN Continue with orthotics Patient to continue with oral anti - inflammatories as needed for pain and recommended OTC medications such as tylenol or Ibuprofen Visit spent with patient education on condition and treatment of condition. Pt to continue with elevation of feet while resting or NWB. Application of salinocaine acid medication to lesion/lesions located at right foot Informed pt of risks and benefits of procedure including high reoccurence rate, infection, pain andconsent given. Application of DSD post procedure. Kingsley Guido DPM documented in this encounterNorth [facility] City [id number] History of Present illness Narrative* Iesha Walker - 12/18/2024 8:30 AM EDT Images from the original note were not included. Aston Seymour is a 69 y.o. female presents with chief complaint of bilateral knee pain and stiffness, right worse than left. HPI: Aston is here mainly for her right knee. She does see Dr. Larsen. She has been tried on Lodine, Relafen, Mobic. She has been on methyl prednisolone. She does have what they thought initially was PMRthen there was some question of sero negative rheumatoid arthritis. She states she has even been onMethotrexate. She comes in today with knee pain, really more on the right knee. She gets swelling, stiffness and irritability. She is very nervous with the thought of injections. She is really not getting anywhere with her current regimen. If she sits for any period of time, she has difficulty getting up and moving. She has been working at her job for 20+ years and she is on her feet the majorityof the day. Her left knee does cause some achiness and crepitance, but nothing as significant. SUBJECTIVE: MEDICATIONS: Current Outpatient Medications Medication Instructions alendronate (FOSAMAX) 35 mg, Every 7 days amLODIPine (NORVASC) 5 mg, Daily celecoxib (CELEBREX) 200 mg, 2 times daily cholecalciferol (Vitamin D-3) 50 MCG (1999) capsule Vitamin D etodolac (LODINE) 500 mg, 2 times daily leflunomide (ARAVA) 20 mg, Daily lisinopril 20 mg, Daily lisinopril 40 mg, Daily methylPREDNISolone (Medrol Dospak) 4 MG tablets Follow schedule on MEDROL PACK package instructionsto be used as directed Multiple Vitamins-Minerals (multivitamin with iron-minerals) liquid Daily Bmvyxvpjsgm-Kueznecd-Qtfhbfnqr 1-0.5-0.075 % solution 1 drop, Ophthalmic, 4 times daily ALLERGIES: Allergies Allergen Reactions Cephalexin Unknown Yeast infection Penicillins Unknown FLU Codeine Rash SURGICAL HISTORY: Past Surgical History: Procedure Laterality Date EXTERNAL EAR SURGERY Left FINGER SURGERY Right right ring finger SINUS SURGERY TONSILECTOMY, ADENOIDECTOMY, BILATERAL MYRINGOTOMY AND TUBES FAMILY HISTORY: Family History Problem Relation Name Age of Onset Cancer Mother Diabetes Father Hypertension Father No Known Problems Maternal Grandmother No Known Problems Maternal Grandfather No Known Problems Paternal Grandmother No Known Problems Paternal Grandfather SOCIAL HISTORY: Social History Tobacco Use Smoking status: Every Day Types: Cigarettes Start date: 1990 Passive exposure: Current Smokeless tobacco: Never Substance Use Topics Alcohol use: Not Currently Comment: caffeine 2-3 cups per day Drug use: Never Depression: Not on file REVIEW OF SYMPTOMS: The review of systems, history and current medications list are all reviewed today. OBJECTIVE: Visit Vitals Ht 5' 7 Wt 206 lb BMI 32.26 kg/m Smoking Status Every Day BSA 2.1 m Physical Exam On physical exam, the bilateral knees have hypertrophic changes that are mild to moderate on the right, mild on the left. Neutral positioning. There is no rash or infection. The right knee does have a mild aseptic effusion. There is moderate to severe tenderness to the medial and patellofemoral joint on the right, more achy on the left. Crepitance is present of both. Grind test is positive on the right. Collateral ligaments are intact bilaterally. The right knee, she has a contracture of 2-3 degrees with flexion to 108. The left knee has full extension with flexion to 115. Her gait is stiff and antalgic with flexed posture. Her hip exam produces no groin pain or restriction on either side. X-rays, permanently saved to the patient's record, are reviewed. These are non weight bearing [facility]2024 shows bone on bone disease to the right patellofemoral joint that is grade IV. The left patellofemoral is grade III. The medial and lateral jointsto both knees are grade III. The right knee is more intense appearing as compared to the left. There is no acute fracture, dislocation, tumor or infection seen. ASSESSMENT AND PLAN: Assessment/Plan Bilateral knee advanced osteoarthritis, right worse than left. Antalgic gait. The nature of the findings were discussed at length. She has tried conservative management with bracing, ice, Tylenol and anti-inflammatory with numerous options. She has tried prednisone of which she does get some relief when she is on this. This was more targeted to other areas from Dr. Larsen. We discussed the role of further conservative management, injections up to three per year of cortisone per knee. We discussed the role of Visco supplementation. Indications for total knee replacement were reviewed. With consent from the patient today, 1 cc of cortisone (3 mg of Betamethasone sodium phosphate with 3 mg of Betamethasone acetate) and 1 cc of 1% plain Lidocaine was injected to the right knee from a seated sterile approach. She tolerated the injection well. Post injection conservativecare was reviewed. She will see how she responds. She will call or follow up as needed. She voices verbal understanding. She is discharged in stable condition. The patient was seen and examined. From the time of check in, nurse triage, vital signs, x-ray, x-ray interpretation, review of systems, comprehensive history and physical exam as well as setting up treatment plan and further management took 50 minutes. Cosigned by Apolonia James DO at 12/21/2024 6:32 PM EDT documented in this encounterNorth Kansas City HospitalPotnzhdzjl26-10-1355 History of Present illness Narrative* Kingsley Guido DPM - 12/10/2024 8:40 AM EDT Patient: Aston Seymour : 1955 PCP: Shaila Cordova MD SUBJECTIVE Pt presents today for follow up of capsulitis and synovitis to the right 4th metatarsal cuboid joint and ligaments Currently they rate their pain on a 1-10 scale a 2 States prior treatments of steroid injection and nsaids with negative improvement In the past States pain is aggrevated with WB. Pt has similar condition to the left foot. Patient presents today for follow up of skin lesion/neoplasm of unknown origin to the right foot Pt states that previous treatment of acid tx with some improvement Pt rates pain the pain on a 1-10 scale an intensity of 5 Pt presents today for followup. Pt also has history of venous stasis to b/l lower extremities She was precertified for orthotics and presents today for fitting of orthotics. Orthotics are not covered Allergies: Allergies Allergen Reactions Cephalexin Unknown Yeast infection Penicillins Unknown FLU Codeine Rash Past Medical History: Past Medical History: Diagnosis Date DDD (degenerative disc disease), cervical Depression (CMS/HCC) Difficulty walking Gout Hypercholesteremia (CMS/HCC) Hypertension (CMS/HCC) PMR (polymyalgia rheumatica) (CMS/HCC) Pre-diabetes Medications: Current Outpatient Medications: alendronate (Fosamax) 35 MG tablet, Take 35 mg by mouth every 7 (seven) days., Disp: , Rfl: celecoxib (CeleBREX) 200 MG capsule, Take 200 mg by mouth in the morning and 200 mg before bedtime., Disp: , Rfl: leflunomide (Arava) 20 MG tablet, Take 20 mg by mouth in the morning., Disp: , Rfl: lisinopril 20 MG tablet, Take 20 mg by mouth in the morning., Disp: , Rfl: lisinopril 40 MG tablet, Take 40 mg by mouth Daily, Disp: , Rfl: methylPREDNISolone (Medrol Dospak) 4 MG tablets, Follow schedule on MEDROL PACK package instructions to be used as directed, Disp: 21 tablet, Rfl: 0 Qxmfevqhmql-Cnvmruss-Olubxwzta 1-0.5-0.075 % solution, Administer 1 drop into affected eye(s) in the morning and 1 drop at noon and 1 drop in the evening and 1 drop before bedtime., Disp: 10 mL, Rfl:1 ROS: General: denies fever, chills, fatigue, malaise GI: denies abdominal pain or ulcerations with anti-inflammatory medication Musculoskeletal: Positive history of polymyalgia rheumatica with generalized arthritis OBJECTIVE LE EXAM: DERM: Positive hair growth to b/l feet with good skin turgor noted. Negative openings in skin. +1 positive edema bilateral feet and ankles Nummular lesion measuring at the right sub 5th metatarsal base region measuring 0.1 cm x 0.08 cm. VASC: Palpable pedal pulsed b/l with warm to cool tibia to toes b/l NEURO: Gross sensation intact digits 1-10 and b/l feet ORTHO: +5/5 DF/PF/IN/EV right, +5/5 DF/PF/IN/EV left. 20 degrees inversion and 10 degrees eversion STJ b/l. Ankle ROM less than 10 degrees b/l. Positive pain on palpation to the right foot lesion Diminished pain on palpation to right 4th and 5th metatarsal cuboid joint ligaments Diminished pain on palpation to left 4th and 5th metatarsal cuboid joint ligaments ASSESSMENT 1. Capsulitis of metatarsophalangeal (MTP) joint of left foot 2. Capsulitis of metatarsophalangeal (MTP) joint of right foot 3. Verruca plantaris 4. Foot pain, right PLAN Pt was fitted for custom made orthotics today. Orthotics were deemed to fit appropriately and patient was informed of proper break in of devices. Patient education on break in of device. ABN signed and in chart if warranted.. patient has 5 mm metatarsal pads and understands orthotics or hrv-ib-ojtvvg cost today Patient to continue with oral anti - inflammatories as needed for pain and recommended OTC medications such as tylenol or Ibuprofen Visit spent with patient education on condition and treatment of condition. Pt to continue with elevation of feet while resting or NWB. Application of salinocaine acid medication to lesion/lesions located at right foot Informed pt of risks and benefits of procedure including high reoccurence rate, infection, pain andconsent given. Application of DSD post procedure. Kingsley Guido DPM documented in this encounterNorth Kansas City [id number] History of Present illness Narrative* Kingsley Guido DPM - 10/26/2024 10:50 AM EST Patient: Aston Seymour : 1955 PCP: Shaila Cordova MD SUBJECTIVE Patient presents today with right greater than left lateral and right foot pain for the past few months and states she has been wearing orthotics and taking anti-inflammatories with negative improvement rates pain up to an 8/10 particularly standing while at work. Patient presents today for follow up of skin lesion/neoplasm of unknown origin to the right foot Pt states that previous treatment of acid tx with some improvement Pt rates pain the pain on a 1-10 scale an intensity of 8 Pt presents today for followup. Pt also presents today for secondary complaint of swelling to b/l ankle regions and feet. They state that condition is starting to worsten have tried no treatments for the condition. Statesswelling worstens with prolonged standing activities. Allergies: Allergies Allergen Reactions Cephalexin Unknown Yeast infection Penicillins Unknown FLU Codeine Rash Past Medical History: Past Medical History: Diagnosis Date DDD (degenerative disc disease), cervical Depression (CMS/HCC) Difficulty walking Gout Hypercholesteremia (CMS/HCC) Hypertension (CMS/HCC) PMR (polymyalgia rheumatica) (CMS/HCC) Pre-diabetes Medications: Current Outpatient Medications: alendronate (Fosamax) 35 MG tablet, Take 35 mg by mouth every 7 (seven) days., Disp: , Rfl: celecoxib (CeleBREX) 200 MG capsule, Take 200 mg by mouth in the morning and 200 mg before bedtime., Disp: , Rfl: leflunomide (Arava) 20 MG tablet, Take 20 mg by mouth in the morning., Disp: , Rfl: lisinopril 20 MG tablet, Take 20 mg by mouth in the morning., Disp: , Rfl: lisinopril 40 MG tablet, Take 40 mg by mouth Daily, Disp: , Rfl: methylPREDNISolone (Medrol Dospak) 4 MG tablets, Follow schedule on MEDROL PACK package instructions to be used as directed, Disp: 21 tablet, Rfl: 0 Vzyrnmvkfqi-Acftgnob-Focgljgrm 1-0.5-0.075 % solution, Administer 1 drop into affected eye(s) in the morning and 1 drop at noon and 1 drop in the evening and 1 drop before bedtime., Disp: 10 mL, Rfl:1 ROS: General: denies fever, chills, fatigue, malaise GI: denies abdominal pain or ulcerations with anti-inflammatory medication Musculoskeletal: Positive history of polymyalgia rheumatica with generalized arthritis OBJECTIVE LE EXAM: DERM: Positive hair growth to b/l feet with good skin turgor noted. Negative openings in skin. +1 positive edema bilateral feet and ankles Nummular lesion measuring at the right sub 5th metatarsal base region measuring 0.1 cm x 0.1 cm. VASC: Palpable pedal pulsed b/l with warm to cool tibia to toes b/l NEURO: Gross sensation intact digits 1-10 and b/l feet ORTHO: +5/5 DF/PF/IN/EV right, +5/5 DF/PF/IN/EV left. 20 degrees inversion and 10 degrees eversion STJ b/l. Ankle ROM less than 10 degrees b/l. Positive pain on palpation to the right foot lesion positive pain on palpation to right 4th and 5th metatarsal cuboid joint ligaments Positive pain on palpation to left 4th and 5th metatarsal cuboid joint ligaments DIAGNOSTIC ULTRASOUND REPORT: Verbal order for ultrasound today The 4th and 5thmetatarsal and cuboid joint ligaments and capsule of the right foot was examined with a 12 MHz linear probe in the transverse and sagital planes on the capsular regions capsulitis/inflammation and a hypoechoic signal at 4th metatarsal base/cuboid capsule on a series of sagittal and transverse images. IMPRESSION: Ultrasound findings indicated capsulitis of the right 4th and 5thmetatarsal cuboid joint ligament regions. ASSESSMENT 1. Capsulitis of metatarsophalangeal (MTP) joint of left foot 2. Verruca plantaris 3. Foot pain, right 4. Venous insufficiency 5. Capsulitis of metatarsophalangeal (MTP) joint of right foot PLAN Prescription today for Medrol pack and will check with pre-certify inserts Pt was given steroid injection to the medial and lateral capsular ligaments of the right 4th and 5th metatarsal cuboid joint ligaments under US guidance with visualization of injected fluid into areaof concern per imaging. Injection consisted of a 2:1 mixture of xylocaine 2%plain and kenalog 10 for a total of 3ccs. Informed pt of risks and benefits of procedure including infection,damage or rupture to soft tissuestructures and steroid flare. Pt understood and consented. This is the patients 1st injection Visit spent with patient education on condition and treatment of condition. Pt to continue with elevation of feet while resting or NWB. Discussed compression hose and the use of stockings for edema. Discussed condition in detail. Recommendation for ihvg-ruv-bdcagnh compression stockings at this time and may consider prescription stockings in the future. Kingsley Guido DPM documented in this encounterNorth Kansas City [id number] History of Present illness Narrative* Elle Spivey MD - 04/21/2024 10:15 AM EDT Assessment/Plan Cataract, OU: Observe for now without intervention. The patient was advised to contact us if any change or worsening of vision documented in this encounterNorth Kansas City [id number] History of Present illness Narrative* Enrique Sam MD - 07/10/2022 4:00 PM EST OCT MAC shows no SRF OU This patient has a significant cataract that is interfering with their vision and their ability to function normally. They are having difficulty in driving, reading and normal functions of daily life. The risks, benefits, complications and alternatives of cataract surgery were explained to the patient, including but not limited to loss of vision / loss of the eye / blind and painful eye and they requested cataract surgery. Informed consent was obtained.They will be returning for surgery meassurements and will be scheduled in the near future. Anisometropia. Big difference in refractive error between eyes. Approved for cataract surgery with IOL OS Procedure/Risks as inflammation, infection, bleeding, blindness, need for second surgery, need to wear glasses after surgery discussed with pt/attendant. The pt showed understanding and desires to proceed with surgery. The different type of lenses discussed with the pt (monofocal, toric, multifocal). Pt is aware that can not work for a week after surgery because of high risk of infection due to environmental factors as dust, germs, chemicals, etc. 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 Other and combined forms of senile cataract documented in this encounter [facility]* Diagnosis Cortical age-related cataract of both eyes- Primary documented in this encounter [facility]* Diagnosis Capsulitis of metatarsophalangeal (MTP) joint of left foot- Primary Verruca plantaris Plantar wart Foot pain, right Pain in soft tissues of limb Venous insufficiency Unspecified venous (peripheral) insufficiency Capsulitis of metatarsophalangeal (MTP) joint of right foot Acute gout of left ankle, unspecified cause documented in this encounter [facility] HealthcareEvaluation note* Diagnosis Capsulitis of metatarsophalangeal (MTP) joint of left foot- Primary Capsulitis of metatarsophalangeal (MTP) joint of right foot Verruca plantaris Plantar wart Foot pain, right Pain in soft tissues of limb documented in this encounter [facility] HealthcareEvaluation note* Diagnosis Bilateral primary osteoarthritis of knee- Primary Capsulitis of metatarsophalangeal (MTP) joint of left foot- Primary Capsulitis of metatarsophalangeal (MTP) joint of right foot Verruca plantaris Plantar wart Foot pain, right Pain in soft tissues of limb documented in this encounter [facility] HealthcareEvaluation note* Diagnosis Capsulitis of metatarsophalangeal (MTP) joint of left foot- Primary Capsulitis of metatarsophalangeal (MTP) joint of right foot Verruca plantaris Plantar wart Foot pain, right Pain in soft tissues of limb documented in this encounter [facility] HealthcareEvaluation note* Diagnosis Bilateral primary osteoarthritis of knee- Primary documented in this encounter [facility] HealthcareHospital Discharge instructions No data available for this section [facility] No data available for this section [facility] Summary Purpose Family History No Family History Records FoundNo Family History Records FoundNo Family History Records Found No data available for this section No data available for this section No Family History Records FoundNo Family History Records Found No data available for this section No Family History Records FoundNo Family History Records Found Advance Directives No Advanced Directives Records FoundNo Advanced Directives Records FoundNo Advanced Directives Records FoundNo Advanced Directives Records FoundNo Advanced Directives Records FoundNo Advanced Directives Records FoundNo Advanced Directives Records Found Additional Source Comments Source Comments (unrecognize d section and content) In the event this informatio n is protected by the Federal Confidentiality of Alcohol and Drug Abuse Patient Records regulations: The Federal rules restrict any use of the information to criminally investigate or prosecute any alcohol or drug abuse patient.[facility] HospitalIn the event this information is protected by the Federal Confidentiality of Alcohol and Drug Abuse Patient Records regulations: The Federal rules restrict any use of the information to criminally investigate or prosecute any alcohol or drug abuse patient.[facility] Reason for Visit (unrecogniz ed section and content) Reason Comments Refill Request Reason Comments Cataract Evaluation Pt ref from Dr Tramaine tijerina for cat in the OS . Pt note sin the PM she sees 5 stars instead of 1. 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 Reason Comments Pain Reason Comments Follow-up Rt lesion check Reason Comments Osteoarthritis INFORMATION SOURCE (unrecogn ized section and content) DATE CREATED AUTHOR 03/19/2021 [facility] DATE CREATED AUTHOR AUTHOR'S ORGANIZ ATION 07/16/2022 [facility] DATE CREATED AUTHOR AUTHOR'S ORGANIZ ATION 09/13/2024 [facility] DATE CREATED AUTHOR AUTHOR'S ORGANIZ ATION 01/06/2025 [facility] DATE CREATED AUTHOR AUTHOR'S ORGANIZ ATION 01/25/2025 [facility] DATE CREATED AUTHOR AUTHOR'S ORGANIZ ATION 02/13/2025 [facility] DATE CREATED AUTHOR AUTHOR'S ORGANIZ ATION 02/17/2025 [facility] Care Teams (unrecognized sec tion and content) Team Status: Inactive Member Role Status Dates Timmy Larsen MD Attending Provider Active Flare Maker Relationship Specialty Start Date End Date Shaila Cordova DO [address] [place], [place] [id number] [phone] Referring Family Medicine 10/10/21 Flare Maker Relationship Specialty Start Date End Date Shaila Cordova MD [address] [place] [phone] PCP - General Family Medicine 02/07/23 Flare Maker Relationship Specialty Start Date End Date Shaila Cordova MD [address] [place] [phone] PCP - General Family Medicine 02/07/23 Flare Maker Relationship Specialty Start Date End Date Shaila Cordova MD [address] [place] [phone] PCP - General Family Medicine 02/07/23 Flare Maker Relationship Specialty Start Date End Date Shaila Cordova MD [address] [place] [phone] PCP - General Family Medicine 02/07/23 Flare Maker Relationship Specialty Start Date End Date Shaila Cordova MD [address] [place] [phone] PCP - General Family Medicine 02/07/23 Flare Maker Relationship Specialty Start Date End Date Shaila Cordova MD [address] [place] [address] PCP - General Family Medicine 02/07/23 Flare Maker Relationship Specialty Start Date End Date Shaila Cordova MD [address] [place] [phone] PCP - General Family Medicine 02/07/23 Flare Maker Relationship Specialty Start Date End Date Shaila Cordova MD [address] [place] [phone] PCP - General Family Medicine 02/07/23 Flare Maker Relationship Specialty Start Date End Date Shaila Cordova MD [address] [place] [phone] PCP - General Family Medicine 02/07/23 Flare Maker Relationship Specialty Start Date End Date Shaila Cordova MD [address] [place] [phone] PCP - General Family Medicine 02/07/23 Flare Maker Relationship Specialty Start Date End Date Shaila Cordova MD [address] [place] [phone] PCP - General Family Medicine 02/07/23 Goals (unrecognized section and content) Goals may be documented in a n alternate section No data available for this section No data available for this section No data available for this section No data available for this section FOR RECORDS PERTAINING TO PATIENTS WHO ARE OR HAVE BEEN ENROLLED IN A CHEMICAL DEPENDENCY/SUBSTANCEABUSE PROGRAM, SOME INFORMATION MAY BE OMITTED. This clinical summary was aggregated from multiple sources. Caution should be exercised in using it in the provision of clinical care. This summary normalizes information from multiple sources, and as a consequence, information in this document may materially change the coding, format and clinical context of patient data. In addition, data may be omitted in some cases. CLINICAL DECISIONS SHOULD BE BASED ON THE PRIMARY CLINICAL RECORDS. [facility] [employer] [facility]. provides no warranty or guarantee of the accuracy or completeness of information in this document.
--- NOTE | 2025-03-10 08:15 | XR_ITS ---
The [address] [address] Patient Name: ASTON EVERETT MRN: [id number] date: 1955 Sex: F Assigned Patient Location: [facility] Current Patient Location: [facility] Accession/Order Number: [id number] Exam Date: 03/10/2025 08:52 Report Date: 03/10/2025 08:55 At the request of: JOEL SABILLON DPAvinash Procedure: XR foot LT min 3V LEFT FOOT - 3 views CLINICAL DATA: Chronic left foot pain and lump. No reported injury. COMPARISON: None Standing AP, lateral and oblique views were obtained. A marker was space at the site of patient's lump. There is flattening of the plantar arch. There is no evidence of fracture. No dislocation is identified though there may be slight subluxation at the second through fifth metatarsal phalangeal joints. Minor spurring is present at the dorsum of the tarsals. There are small calcaneal spurs. There are no significant soft tissue abnormalities. XR/XR foot LT min 3V IMPRESSION: NO ACUTE BONY FINDINGS. Impression dictated by: Sommer Will M.D. 03/10/2025 8:55 AM Dictation Location: [place] [address] Electronically authenticated by: [id number] Y Date: 03/10/2025 08:55
== END 2025-03-10 07:49 | disposition home or self-care (01) ==
LOC: RAD 07:51
PROVIDERS: PCP Family Medicine; Visit Provider Podiatrist Foot & Ankle Surgery
DX: M79.672 Pain in left foot (principal)
CPT/HCPCS: 73630

== ENCOUNTER 2025-04-02 08:26 | Outpatient (OUT) | payer BC, SELFPAY ==
--- NOTE | 2025-04-02 08:30 | CA_ITS ---
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 Interpretive Statements Summary of the findings: Right leg: SONU= 1.19; TBI= 1.14. Doppler waveforms demonstrate biphasic flow at the posterior tibial and dorsalis pedis arteries. Left leg: SONU= 1.15; TBI= 0.74. Doppler waveforms demonstrate biphasic flow at the posterior tibial and dorsalis pedis arteries. Segmental pressures: Segmental pressures are normal bilaterally. Pulse volume recordings: PVRs at the high thigh, below knee, and ankle levels show normal waveforms. Conclusion: Right and left ankle-brachial indices are suggestive of normal overall arterial flow at rest. Toe-brachial indices are not suggestive of PAD. Segmental pressures show no segmental disease. Pulse volume recordings indicate good overall resting arterial flow. Overall normal physiologic examination. Electronically Signed On 04-03-2025 7:47:13 EDT by GUALBERTO BERUMEN M.D.
--- NOTE | 2025-04-02 09:27 | MR_ITS ---
[address] [address] Patient Name: ASTON EVERETT MRN: [id number] date: 1955 Sex: F Assigned Patient Location: [facility] Current Patient Location: [facility] Accession/Order Number: [id number] Exam Date: 04/02/2025 15:26 Report Date: 04/02/2025 15:45 At the request of: JOEL SABILLON DPM Procedure: MR foot LT wo con MR foot LT wo con 04/02/2025 11:18 AM SIGNS AND SYMPTOMS: Second Toe Dislocation, chronic left foot pain and lump PROTOCOL: Multiplanar multisequence MR images of the left foot without IV contrast COMPARISON: 03/10/2025 FINDINGS: Lisfranc ligament: Intact. Hallux: Osseous: Normal. Extensor tendon: Normal. Flexor tendon: Normal. First metatarsophalangeal joint: Intact. Hallux-sesamoid complex: Intact. Second ray: Osseous: Edema is noted along the proximal phalanx of the second toe. Extensor tendon: Normal. Flexor tendon: There is discontinuity and edema along the lateral slip of the flexor digitorum brevis tendon beneath the joint space suggesting a tear. Second metatarsophalangeal joint: Intact. There is edema surrounding the joint space in the adjacent soft tissues.. Plantar plate: Normal. Third ray: Osseous: Normal. Extensor tendon: Normal. Flexor tendon: Normal. Third metatarsophalangeal joint: Intact. Plantar plate: Normal. Fourth ray: Osseous: Normal. Extensor tendon: Normal. Flexor tendon: Normal. Fourth metatarsophalangeal joint: Intact. Plantar plate: Normal. Fifth ray: Osseous: Normal. Extensor tendon: Normal. Flexor tendon: Normal. Fifth metatarsophalangeal joint: Intact. Plantar plate: Normal. Interspaces: Interdigital (Iverson) neuroma: None. Intermetatarsal bursitis: None. Soft tissues: Normal. Muscles: Normal. Bones: Normal. Nerves: Normal. Blood vessels: Normal. MR/MR foot LT wo con IMPRESSION: Edema is noted along the proximal phalanx of the second toe. This is of uncertain etiology. There is no evidence of fracture or dislocation. There is discontinuity and edema along the lateral slip of the flexor digitorum brevis tendon of the second digit beneath the metatarsophalangeal joint space suggesting a tear. Second metatarsophalangeal joint is intact. The adjacent soft tissues along the joint capsule are edematous. Impression dictated by: Martin Craig M.D. 04/02/2025 3:45 PM [facility]ictation [facility] Electronically authenticated by: [id number] Y Date: 04/02/2025 15:45
== END 2025-04-02 08:27 | disposition home or self-care (01) ==
LOC: CARD 08:26
PROVIDERS: PCP Family Medicine; Visit Provider Podiatrist Foot & Ankle Surgery
DX: R09.89 Other specified symptoms and signs involving the circulatory and respiratory systems (principal); I73.9 Peripheral vascular disease, unspecified
CPT/HCPCS: 73718; 93923

== ENCOUNTER 2025-04-24 20:11 | Emergency (ER) | payer BC, SELFPAY ==
[2025-04-24 20:29] VITALS: BP 151/87; PULSE 88; TEMP 36.6; O2SAT 96; BMI 34.9
--- OUTSIDE RECORDS SUMMARY | 2025-04-24 20:31 | XMS_ITS | CCD ---
Author Organization [facility] Care Team Providers Care Glass Forming Engineer Name Role Phone Unavailable Primary Care Provider Unavailabl e MISC, DR HUBBARD Consulting Unavailable SHORT, OMAR Primary Care Unavailable MISC, DR HUBBARD Admitting Unavailable MISC, DR HUBBARD Attending Unavailable MISC, DR HUBBARD Consulting Unavailable SHORTOMAR Primary Care Unavailable MISC, DR HUBBARD Admitting Unavailable MISC, DR HUBBARD Attending Unavailable MISC, DR HUBBARD Admitting Unavailable SHORT, OMAR Primary Care Unavailable BOBTOWN, DR TRACY Bateman Consulting Unavailable MISC, DR HUBBARD Attending Unavailable MISC, DR HUBBARD Consulting Unavailable MD Timmy Larsen Attending Provider Shaila Cordova DO Unavailable [phone] Timmy Larsen Admitting Unavailable Timmy aLrsen Attending Unavailable Shaila Cordova Primary Care Physician Shaila Cordova MD Primary Care Provider Shaila Cordova Admitting Unavailable Shaila Cordova Attending Unavailable Shaila Cordova Referring Unavailable Vilma Mantilla Attending Unavaila Vilma Bee Referring Unavaila ble Sarmini, Vilma Talal Admitting Unavaila ble SarVilma beardenal Attending Unavaila Vilma Bee Attending Unavaila Shaila Piedra MD Primary Care Provider KINGSLEY GUIDO Attending Unavailable KINGSLEY GUIDO Attending Unavailable KINGSLEY GUIDO Attending Unavailable APOLONIA JAMES Attending Unavailable NENITA LARSEN Referring Unavailable KINGSLEY GUIDO Attending Unavailable KINGSLEY GUDIO Attending Unavailable APOLONIA JAMES Attending Unavailable APOLONIA JAMES Referring Unavailable JAMESAPOLONIA Attending Unavailable JAMESAPOLONIA Referring Unavailable JAMESAPOLONIA Attending Unavailable APOLONIA JAMES Attending Unavailable APOLONIA JAMES Referring Unavailable ELLE SPIVEY Attending Unavailable Allergies Allergy Classification Reported Allergen(s) Allergy Type Date of Onset Reaction(s) Facility Opioid Agonists (1 source) Codeine Drug Allergy [facility] Repository (20 sources) Cephalexin Drug Allergy 2 Other: See Comments, Unknown [facility] Work Phone: (1 source) Penicillins Drug Allergy 2 Other: See Comments [facility] Work Phone: (20 sources) Codeine; Translations: [codeine] Drug Allergy 3 [facility] (20 sources) Penicillins Drug Allergy 2 Unknown [facility] [...] Status: Ordered amLODIPine 5 mg oral tablet (15 sources) Dihydropyridine Calcium Channel Kendrick Start: 12-05-2024 take 1 tablet by mouth once daily amLODIPine (Norvasc) 5 MG tablet Take 5 mg by mouth Daily 12/05/2024 Active celecoxib 200 mg oral capsule (20 sources) Nonsteroidal Anti-inflammatory Drug Start: 01-09-2024 take 1 capsule by mouth in the morning celecoxib (CeleBREX) 200 MG capsule Take 200 mg by mouth in the morning and 200 mg before bedtime. 01/09/2024 Active cholecalciferol 0.05 mg oral capsule (14 sources) Vitamin D cholecalciferol (Vitamin D-3) 50 [...] Status: Ordered etodolac 500 mg oral tablet (14 sources) Nonsteroidal Anti-inflammatory Drug Start: 12-01-2024 take [...] 07-10-2022 take 1 tablet by nolberto th once daily lisinopril 20 MG tablet Take 20 mg by mouth Daily 07/10/2022 Active metFORMIN hydrochloride 500 mg oral tablet (1 source) Biguanide Start: 11-04-2020 take 500 mg by mouth once daily metformin 500 mg, Oral, Daily, Refills(s) 0 Start Date: 11/04/20 Status: Ordered Multiple Vitamins-Minerals (multivitamin with iron-minerals) liquid (14 sources) Multiple Vitamins-Minerals (multivitamin with iron-minerals) liquid Take by mouth Daily Active nabumetone 750 mg oral tablet (8 sources) Nonsteroidal Anti-inflammatory Drug Start: 11-24-2024 take 1 tablet by mouth in the morning nabumetone (Relafen) 750 MG tablet Take 750 mg by mouth in the morning and 750 mg before bedtime. 11/24/2024 Active polyethylene glycol 3350 019799 mg / potassium chloride 1480 mg / sodium bicarbonate 5720 mg / sodium chloride 37337 mg powder for oral solution (1 source) Osmotic Laxative Start: 11-23-2024 NuLYTELY Likely oral powder for reconstitution See Instructions, 1 EA, Refill(s) 0, follow up physicians insctructions, [facility]/pharmacy #[id number], 172, cm, 11/23/24 8:31:00 EDT, Height/Length Dosing, 95.3, kg, 11/23/24 8:31:00 EDT, Weight Dosing Start Date: 11/23/24 Status: Ordered Quantity: 1.0 Unit: EA Repeat number: 1 Prednisolon-Moxiflo x-Bromfenac 1-0.5-0.075 % solution (20 sources) Start: 04-21-2024 Prednisolon-Moxiflo x-Bromfenac 1-0.5-0.075 % [...] constipation, # 1,042 gram, Refills(s) 3, Pharmacy: [facility]/pharmacy #[id number], 172, cm, 11/23/24 8:31:00 EDT, Height/Length [...] clopidogrel (1 source) P2Y12 Platelet Inhibitor clopidogrel bisulfate (CLOPIDOGREL ORAL) Take by mouth. 0 Active [...] the ri ght eye four times daily. fluticasone/umecli din/vilanter (TRELEGY ELLIPTA INHALATION) (1 source) fluticasone/umec li din/vilanter (TRELEGY ELLIPTA INHALATION) Inhale as instructed. 0 [...] the ri ght eye four times daily. 2 ml sodium hyaluronate 8.4 mg/ml prefilled syringe (6 sources) Start: 04-01-2025 End: 04-01-2025 sodium hyaluronate (Gelsyn-3) injection 2 mL Start: 04-01-2025 End: 04-01-2025 2 mL, Intra-articular, Once PRN Procedure, Starting on Tara 04/01/25 at 0826, For 1 dose Start: 03-25-2025 End: 03-25-2025 sodium hyaluronate (Gelsyn-3 ) injection 2 mL Start: 03-25-2025 End: 03-25-2025 2 mL, Intra-articular, Once PRN Procedure, Starting on Sat03/25/25 at 0757, For 1 dose Start: 03-18-2025 End: 03-18-2025 sodium hyaluronate (Gelsyn-3 ) injection 2 mL Start: 03-18-2025 End: 03-18-2025 2 mL, Intra-articular, Once PRN Procedure, Starting on Sat03/18/25 at 0824, For 1 dose Memantine (1 source) T-zmwfad-M-aspartate Receptor Antagonist memantine HCl (MEMAN KRAI ORAL) Take by mouth. 0 Active Comment on above: Take by mouth. methylPREDNISolone (20 sources) Corticosteroid Start: End: methylPREDNISolone (Medrol Dospak) 4 MG tablets Indications: [...] (4 sources) Depressive disorder 11-04-2020 Chronic Osteoarthritis (12 sources) Primary gonarthrosis, bilateral; Translations: [Bilateral primary [...] Test Name Value Interpretation Reference Range Facility CBC (INCLUDES DIFF/PLT)on Basophils (Bld) [#/Vol] 0.072 10*3/uL Normal 0-200 [facility] Comment on above: Performed By: #### 8 09, 62296, 5119 #### [facility] [address], [address] [place] [id number] Anglesmith: Jesús Camp MD Basophils/100 WBC (Bld) 0.8 % Normal [facility] Comment on above: Performed By: #### 8 09, , 6399 #### [facility] [place] [address] Anglesmith: Jesús Camp MD Eosinophils (Bld) [#/Vol] 0.144 10*3/uL Normal 15-500 [facility] Comment on above: Performed By: #### 8 09, , 6399 #### [facility] [place] [address] Anglesmith: Jesús Camp MD Eosinophils/100 WBC (Bld) 1.6 % Normal [facility] Comment on above: Performed By: #### 8 , , 63 #### [facility] [place] [address] Anglesmith: Jesús Camp MD Erythrocyte distribution width (RBC) [Ratio] 13.9 % Normal 11.0-15.0 [facility] Comment on above: Performed By: #### 8 , , 6399 #### [facility] [place] [address] Anglesmith: Jesús Camp MD Hematocrit (Bld) [Volume fraction] 45.7 % High 35.0-45.0 [facility] Comment on above: Performed By: #### 8 , , 6399 #### [facility] [place] [address] Anglesmith: Jesús Camp MD Hemoglobin (Bld) [Mass/Vol] 14.8 g/dL Normal 11.7-15.5 [facility] Comment on above: Performed By: #### 8 , 77210, 6399 #### [facility] [place] [address] Anglesmith: Jesús Camp MD Lymphocytes (Bld) [#/Vol] 2.529 10*3/uL Normal 850-3900 [facility] Comment on above: Performed By: #### 8 , , 6399 #### [facility] [place] [address] Anglesmith: Jesús Camp MD Lymphocytes/100 WBC (Bld) 28.1 % Normal [facility] Comment on above: Performed By: #### 8 , , 6399 #### [facility] [place] [address] Anglesmith: Jesús Camp MD MCH (RBC) [Entitic mass] 30.4 pg Normal 27.0-33.0 [facility] Comment on above: Performed By: #### 8 , , 6399 #### [facility] [place] [address] Anglesmith: Jesús Camp MD MCHC (RBC) [Mass/Vol] 32.4 [...] the patient's clinical condition. Performed By: #### 8 , , 6399 #### [facility] [place] [address] Anglesmith: Jesús Camp MD MCV (RBC) [Entitic vol] 93.8 fL Normal 80.0-100.0 [facility] Comment on above: Performed By: #### 8 , , 6399 #### [facility] [place] [address] Anglesmith: Jesús Camp MD Monocytes (Bld) [#/Vol] 0.864 10*3/uL Normal 200-950 [facility] Comment on above: Performed By: #### 8 , , 6399 #### [facility] of [address] [place] [address] Anglesmith: Jesús Camp MD Monocytes/100 WBC (Bld) 9.6 % Normal [facility] Comment on above: Performed By: #### 8 09, 21453, 6399 #### [facility] of [address], [address] [place] [address] Anglesmith: Jesús Camp MD Neutrophils (Bld) [#/Vol] 5.391 10*3/uL Normal 7297-2108 [facility] Comment on above: Performed By: #### 8 09, , 6399 #### [facility] [place] [address] Anglesmith: Jesús Camp MD Neutrophils/100 WBC (Bld) 59.9 % Normal [facility] Comment on above: Performed By: #### 8 09, , 6399 #### [facility] [place] [address] Anglesmith: Jesús Camp MD Platelet mean volume (Bld) [Entitic vol] 11.5 fL Normal 7.5-12.5 [facility] Comment on above: Performed By: #### 8 09, 31251, 6399 #### [facility] [place] [address] Anglesmith: Jesús Camp MD Platelets (Bld) [#/Vol] 204 10*3/uL Normal 140-400 [facility] Comment on above: Performed By: #### 8 09, 13712, 6399 #### [facility] of [address], [address] [place] [address] Anglesmith: Jesús Camp MD RBC (Bld) [#/Vol] 4.87 10*6/uL Normal 3.80-5.10 [facility] Comment on above: Performed By: #### 8 09, , 6399 #### [facility] of [address], [address] [place] [address] Anglesmith: Jesús Camp MD WBC (Bld) [#/Vol] 9.0 10*3/uL Normal 3.8-10.8 [facility] Comment on above: Performed By: #### 8 09, 94364, 6399 #### [facility] [place] [address] Anglesmith: Jesús Camp MD [facility] 04-17-2025 Albumin [Mass/Vol] 4.3 g/dL Normal 3.6-5.1 [facility] Comment on above: Performed By: #### 8 09, 48399, 6399 #### [facility] [place] [address] Anglesmith: Jesús Camp MD Albumin/Globulin [Mass ratio] 1.7 {ratio} Normal 1.0-2.5 [facility] Comment on above: Performed By: #### 8 09, 42476, 6399 #### [facility] [place] [address] Anglesmith: Jesús Camp MD ALP [Catalytic activity/Vol] 89 U/L Normal 37-153 [facility] Comment on above: Performed By: #### 8 09, 99598, 6399 #### [facility] [place] [address] Anglesmith: Jesús Camp MD ALT [Catalytic activity/Vol] 17 U/L Normal 6-29 [facility] Comment on above: Performed By: #### 8 09, 78111, 6399 #### [facility] [place] [address] Anglesmith: Jesús Camp MD AST [Catalytic activity/Vol] 29 U/L Normal 10-35 [facility] Comment on above: Result Comment: Resu lts slightly increased due to hemolysis. Performed By: #### 8 09, 37804, 0499 #### [facility] [place] [address] Anglesmith: Jesús Camp MD Bilirubin [Mass/Vol] 0.3 mg/dL Normal 0.2-1.2 [facility] Comment on above: Performed By: #### 8 , , 6399 #### [facility] [place] [address] Anglesmith: Jesús Camp MD BUN/CREATININE RATIO SEE NOTE: Normal 6-22 [facility] Comment on above: Result Comment: Not Reported: BUN and Creatinine are within reference range. Performed By: #### 8 , , 6399 #### [facility] of [address], [address] [place] [address] Anglesmith: Jesús Camp MD Calcium [Mass/Vol] 9.1 mg/dL Normal 8.6-10.4 [facility] Comment on above: Performed By: #### 8 , , 6399 #### [facility] [place] [address] Anglesmith: Jesús Camp MD Chloride [Moles/Vol] 105 mmol/L Normal 98-110 [facility] Comment on above: Performed By: #### 8 , 45846, 6399 #### [facility] [place] [address] Anglesmith: Jesús Camp MD CO2 [Moles/Vol] 20 mmol/L Normal 20-32 [facility] Comment on above: Performed By: #### 8 , 39715, 6399 #### [facility] [place] [address] Anglesmith: Jesús Camp MD Creatinine [Mass/Vol] 0.81 mg/dL Normal 0.50-1.[address] [facility] Comment on above: Performed By: #### 8 , 73840, 6399 #### [facility] [place] [address] Anglesmith: Jesús Camp MD GFR/1.73 sq M.predicted among non-blacks MDRD (S/P/Bld) [Vol rate/Area] 80 mL/min/{1.73_m2} Normal > OR = 60 [facility] Comment on above: Performed By: #### 8 09, , 6399 #### [facility] [place] [address] Anglesmith: Jesús Camp MD Globulin (S) [Mass/Vol] 2.6 g/dL Normal 1.9-3.7 [facility] Comment on above: Performed By: #### 8 09, , 6399 #### [facility] [place] [address] Anglesmith: Jesús Camp MD Glucose [Mass/Vol] 100 mg/dL High 65-99 [facility] Comment on above: Result Comment: Fasting reference interval For someone without known diabetes, a glucose value between 100 and 125 mg/dL is consistent with prediabetes and should be confirmed with a follow-up test. Performed By: #### 8 , , 6399 #### [facility] [place] [address] Anglesmith: Jesús Camp MD Potassium [Moles/Vol] 5.9 mmol/L High 3.5-5.[address] [facility] Comment on above: Performed By: #### 8 09, 68825, 6399 #### [facility] [place] [address] Anglesmith: Jesús Camp MD Protein [Mass/Vol] 6.9 g/dL Normal 6.1-8.1 [facility] Comment on above: Performed By: #### 8 , 97964, 6399 #### [facility] [place] [address] Anglesmith: Jesús Camp MD Sodium [Moles/Vol] 139 mmol/L Normal 135-146 [facility] Comment on above: Performed By: #### 8 , 41034, 6399 #### [facility] [place] [address] Anglesmith: Jesús Camp MD Urea nitrogen [Mass/Vol] 20 mg/dL Normal 7-25 [facility] Comment on above: Performed By: #### 8 09, 81758, 2121 #### [facility] [address] [place] [address], [address] [place] [address] Anglesmith: Jesús Camp MD SED RATE BY MODIFIED WESTERG RENon 04-17-2025 SED RATE BY MODIFIED WESTERGREN 2 mm/h Normal < OR = 30 [facility] Comment on above: Performed By: #### 8 09, 79275, 6399 #### [facility] [address] [place] [address], [address] [place] [address] Anglesmith: Jesús Camp MD L Inj/Asp: R kneeon 04-01-20 25 Yari Bhardwaj MA 04/01/2025 8:41 AM L Inj/Asp: R knee on 04/01/2025 8:26 AM Indications: pain Details: 21 G needle Medications: 2 mL sodium hyaluronate 16.8 MG/2ML Consent was given by the patient. [facility] L Inj/Asp: R kneeon 03-25-20 Gilberto Seymour MA 03/25/2025 8:00 AM L Inj/Asp: R knee on 03/25/2025 7:57 AM Indications: diagnostic evaluation Medications: 2 mL sodium hyaluronate 16.8 MG/2ML Outcome: tolerated well, no immediate complications Consent was given by the patient. [facility] L Inj/Asp: R kneeon 03-18-20 25 Yari Bhardwaj MA 03/18/2025 11:35 AM L Inj/Asp: R knee on 03/18/2025 8:24 AM Indications: pain Details: 21 G needle Medications: 2 mL sodium hyaluronate 16.8 MG/2ML Consent was given by the patient. [facility] No Panel Informationon 02-16 Daly Archer MA 02/18/2025 4:51 PM L Inj/Asp: R knee on 02/16/2025 8:34 AM Indications: diagnostic evaluation Details: 22 G needle Medications: 6 mg betamethasone acetate-betamethaso ne sodium phosphate 6 (3-3) MG/ML Outcome: tolerated well, no immediate complications Consent was given by the patient. [facility] Gastroenterology Office/Clin ic Noteon 02-10-2025 Gastroenterology [...] Contact Information Jose Rafael LINDER, Vilma Davis, KEMAR, MED Only if needed [address] [place], [place] [address]axel, [address] [place] [phone] Additional Instructions: Problem List/Past Medical History Ongoing [...] influenza virus vaccine, inactivated 06/19/2019 Recorded Normal [facility] Comment on above: Result Comment: Elec tronically Signed By: Tahmina Dunne MA\.br\Date and Time Signed: 02/05/25 09:18 EDT\.br\Electronically Co-Signed By: Vilma Mantilla MD\.br\Date and Time Co-Signed: 02/10/25 14:07 EDT Ambulatory Visit Summaryon 0 02-05-2025 Ambulatory Visit Summary Ambulatory Visi t Summary SEYMOURASTON :1955 Visit Date:02/05/2025 Ambulatory Visit Instructions Your [...] Follow Up with Jose Rafael LINDER, Vilma Davis [facility] When: Only if needed Where: [address], [address] [phone] [phone] Medications What How Much When Instructions Unchanged [...] for choosing us for your care. Alayna [facility] Reminderson 01-25-2025 Reminders Reminders -- From: Sandra Solis I To: [facility] - Reminders/Recalls; Sent: 01/25/2025 11:10:57 EDT Show up: 11/25/2027 11:10:00 EDT Subject: Colonoscopy recall Due Date/Time: 01/02/2028 11:10:00 EDT Reminder/Recall [address] Mantilla 01/01/25 Normal [facility] Surgical Pathology Reporton 01-05-2025 Surgical Pathology Report [address] [place] [address]- Surgical Pathology Report Collected Date/Time: 01/01/2025 09:42 [...] is entirely submitted in one cassette. (DC) DC:[facility] Microscopic Description Microscopic examination performed unless gross only specified. Quality was accessed and acceptable. This report was transcribed using voice recognition technology and might contain unintended computerized taxation economist errors. Normal [facility] Comment on above: Performed By: #### 4 [id number] #### [facility] [address] [place] [address] Main OR Intraoperative Recor don 01-04-2025 Main OR Intraoperative Record Main OR Intraoperative Record IntraOp Document Type FT Summary Primary Physician: Vilma Mantilla MD Finalized Date/Time: 01/04/25 13:14:31 Pt. Name: ASTON SEYMOUR /Sex: 1955 Female Med Rec #: [id number] Physician: Vilma Mantilla MD Financial #: [id number] Pt. Type: O Room/Bed: / Admit/Disch: 01/01/25 [...] 1 Entry 2 Entry 3 Case Attendee Bishop PHILLIPS, Rick Lopes RN, Vanda Wallace Role Performed RETAIL ASSISTANT MANAGER Coil Machine Operator - Primary Scrub - Primary Time In 01/01/25 09:24:00 01/01/25 09:24:00 01/01/25 09:24:00 Time Out 01/01/25 09:45:00 01/01/25 09:45:00 01/01/25 09:45:00 Procedure COLONOSCOPY(.) COLONOSCOPY(.) COLONOSCOPY(.) Comments Dr. Zazueta supervising Last Modified By: Moses FIERRO, Jie Lopes RN, Jie Lopes RN, Jie 01/01/25 09:52:35 01/01/25 09:52:35 01/01/25 09:52:35 Entry 4 Entry 5 Case Attendee Dee SHELTON, Anuja Mantilla MD, Vilma Davis Role Performed Staff - Other Surgeon - Primary Time In 01/01/25 09:24:00 01/01/25 09:24:00 Time Out 01/01/25 09:45:00 01/01/25 09:45:00 Procedure COLONOSCOPY(.) COLONOSCOPY(.) Comments help in room Last Modified By: Jie Lopes RN, RN, Angela 01/01/25 09:52:35 01/01/25 09:52:35 Perioperative Protocols FT [...] Time Out Rick Alas CRNA, Given Participants Jie Lopes RN, Sparks, Micala E, Schafer CST, Jose Rafael Merritt MD, Vilma Davis Time Out Complete 01/01/25 [...] and tissue Entry 1 Skin Integrity Intact, Helen, Warm, & Skin Abnormality No Dry Outcomes [...] Procedure COLONOSCOP (more content not included)... Normal [facility] Discharge Instructionson Discharge Instructions Discharge Instructions ASTON [...] When: Comments: Call for any problems. Where: [address] [place], [place] [address]axel, [facility] [address] [phone] [phone] Business (1) Medications What How Much When [...] 1 cup (more content not included)... Normal [facility] Comment on above: Result Comment: Elec tronically Signed By: Daniel FIERRO, Yuko\.denice\Date and Time Signed: 01/01/25 09:58 EDT Inpatient Patient Summaryon 01-01-2025 Inpatient Patient Summary Inpatient Patient Summary [place] [id number] [facility] Clinical Discharge Instructions PERSON INFORMATION Name: ASTON SEYMOUR [facility]#:[id number] PHYSICIANS Admitting Physician: Jose Rafael LINDER, Vilma Davis Attending Physician: Vilma Mantilla MD PCP: Shaila [...] capsule by mouth twice a day. Comment: Normal [facility] Main OR PACU II Recordon Main OR PACU II Record Main OR PACU II Record PACU Phase II Document Type FT Summary Primary Physician: Vilma Mantilla MD Finalized Date/Time: 01/01/25 10:17:23 Pt. Name: ASTON SEYMOUR/Sex: 1955 Female Med Rec #: [id number] Physician: Vilma Mantilla MD Financial #: [id number] Pt. Type: O Room/Bed: / Admit/Disch: 01/01/25 [...] Signed By: Yuko Sanchez RN 01/01/25 10:17 [facility] Main OR Preoperative Recordo n 01-01-2025 Main OR Preoperative Record Main OR Preoperative Record Holding Area Document Type FT Summary Primary Physician: Vilma Mantilla MD Finalized Date/Time: 01/01/25 08:05:36 Pt. Name: ASTON SEYMOUR/Sex: 1955 Female Med Rec #: [id number] Physician: Vilma Mantilla MD Financial #: [id number] Pt. Type: O Room/Bed: / Admit/Disch: 01/01/25 [...] Signed By: Jie Lopes RN 01/01/25 08:05 [facility] Outpatient Surgery Discharge Instructionon 01-01-2025 Outpatient Surgery Discharge Instruction Outpatient Surgery Discharge Instruction [address] [address] Patient Discharge Instructions PERSON INFORMATION Name: ASTON SEYMOUR Date of : 1955 Current Date: 01/01/2025 09:19:58 PHYSICIANS Admitting Physician: Vilma Mantilla MD Discharge Diagnosis: History of colon polyps MARGUERITE ASTON L has been given the following list of [...] THE NEAREST EMERGENCY ROOM OR CALL 911 MARGUERITE Urrutia TERESA L, have received the attached patient education materials/instructi ons and have verbalized understanding: May we do a follow up call? Yes No I was present when discharge instructions were given Patient Signature Date Clinican/Nurse Signature Date Follow up: Pharmacy Information: You may receive a survey from [employer] asking you to rate your care experience. Your feedback is important and will help us understand what we do well and how we can improve the quality of care we provide to you, your loved ones and our community. It???s an honor to serve you. Thank you for choosing [facility] HERE ARE THE MEDICATION CHANGES THAT OCCURRED DURING YOUR HOSPITAL STAY Medications to Continue with No Changes Other Medications acetaminophen 1,000 Milligram 3 times a day. alendronate (alendronate 35 mg Tab) 12 EA, 0 Refill(s), PLEASE SEE ATTACHED FOR DETAILED DIRECTIONS., Responsible Provider: RICHARD, SHAILA MARIANA leflunomide (leflunomide 20 mg Tab) 90 EA, [...] day. PATIENT EDUCATION INFORMATION Instructions: Medication Leaflets: [facility] BD Bone Density DEXAon 11-27 BD Bone [...] March DO Transcribed by: SYLVIE Technologist: THALIA Catalan [facility] MA Mamm Screen w/CAD if perf and [...] VERY IMPORTANT TO YOUR HEALTH. THE CURRENT [employer] [...] Josue Cespedes MD Transcribed by: SYLVIE Technologist: [facility] Assessment: BI-RADS Category 2-Benign finding Recommendation: Normal interval follow-up Normal [facility] Ambulatory Visit Summaryon 0 11-23-2024 Ambulatory Visit Summary Ambulatory Visi t Summary ASTON SEYMOUR :1955 Visit Date:11/23/2024 Ambulatory Visit Instructions Your Diagnosis History of colon polyps Diverticulosis Your Care Team Attending Physician - Vilma Mantilla MD Primary Care Physician - Shaila Cordova DO This Is Your Medications List polyethylene glycol 3350 with electrolytes (NuLYTELY Likely oral powder for reconstitution) psyllium (Metamucil 3.4 [...] What to do next Scheduled Follow-Up Appointments Demarcus Apr. 4, 2025 8:15 AM EDT Where: [facility]amm[facility] Saturday 8:30 AM EDT Where: [facility] Medications What How Much When Instructions New polyethylene glycol 3350 with electrolytes (NuLYTELY Likely oral powder for reconstitution) See instructions follow up physicians insctructions Pickup at [facility]/pharmacy #[id number] New psyllium (Metamucil 3.4 g/ 5.2 g oral powder) 3.4 Gram By Mouth 3 times a day as needed for for constipation Refills: 3 Pickup at [facility]/pharmacy #[id number] Unchanged acetaminophen 1,000 Milligram 3 times [...] physician if questions or concerns Pharmacy Information [facility]/pharmacy #[id number]: [address] [place], [place] [phone] Allergies codeine Problems Ongoing - Any problem [...] for choosing us for your care. Normal [facility] Office/Clin ic Noteon 11-23-2024 Gastroenterology Office/Clinic [...] gm, Oral, TID, PRN, 3 refills NuLYTELY Likely oral powder for reconstitution, See Instructions Allergies [...] influenza virus vaccine, inactivated 06/19/2019 Recorded Normal [facility] Comment on above: Result Comment: Elec tronically Signed By: Jose Rafael LINDER, Vilma Davis\.br\Date and Time Signed: 11/23/24 08:53 EDT\.br\Electronically Co-Signed By: Tahmina Dunne MA\.br\Date and Time Co-Signed: 11/23/24 08:46 EDT CBC (INCLUDES DIFF/PLT)on Basophils (Bld) [#/Vol] 0.049 10*3/uL Normal 0-200 [facility] Comment on above: Performed By: #### 1 0231, 803, 9078 #### [facility] [place] [address] Ang[place]: Jesús Camp MD Basophils/100 WBC (Bld) 0.7 % Normal [facility] Comment on above: Performed By: #### 1 0231, 809, 7638 #### [facility] [place] [address] Ang[place]: Jesús Camp MD Eosinophils (Bld) [#/Vol] 0.126 10*3/uL Normal 15-500 [facility] Comment on above: Performed By: #### 1 0231, 809, 5580 #### [facility] [address] [place] [address] Anglesmith: Jesús Camp MD Eosinophils/100 WBC (Bld) 1.8 % Normal [facility] Comment on above: Performed By: #### 1 0231, 809, 6399 #### [facility] of [address], [address] [place] [address] Anglesmith: Jesús Camp MD Erythrocyte distribution width (RBC) [Ratio] 12.9 % Normal 11.0-15.0 [facility] Comment on above: Performed By: #### 1 0231, 809, 6399 #### [facility] of [place] [address] Ang[place]: Jesús Camp MD Hematocrit (Bld) [Volume fraction] 42.9 % Normal 35.0-45.0 [facility] Comment on above: Performed By: #### 1 023, 809, 6399 #### [facility] of [place] [address] [place]: Jesús Camp MD Hemoglobin (Bld) [Mass/Vol] 13.9 g/dL Normal 11.7-15.5 [facility] Comment on above: Performed By: #### 1 0231, 809, 6399 #### [facility] of [place] [address] Ang[place]: Jesús Camp MD Lymphocytes (Bld) [#/Vol] 2.345 10*3/uL Normal 850-3900 [facility] Comment on above: Performed By: #### 1 0231, 809, 6399 #### [facility] of [address], [address] [place] [address] Anglesmith: Jesús Camp MD Lymphocytes/100 WBC (Bld) 33.5 % Normal [facility] Comment on above: Performed By: #### 1 0231, 809, 6399 #### [facility] of [place] [address] Ang[place]mith: Jesús Camp MD MCH (RBC) [Entitic mass] 29.4 pg Normal 27.0-33.0 [facility] Comment on above: Performed By: #### 1 023, 809, 6399 #### [facility] [place] [address] Ang[place]mith: Jesús Camp MD MCHC (RBC) [Mass/Vol] 32.4 [...] clinical condition. Performed By: #### 1 023, 80, 6399 #### [facility] [place] [address] Ang[place]mith: Jesús Camp MD MCV (RBC) [Entitic vol] 90.7 fL Normal 80.0-100.0 [facility] Comment on above: Performed By: #### 1 230, 80, 6399 #### [facility] [place] [address] Ang[place]mith: Jesús Camp MD Monocytes (Bld) [#/Vol] 0.728 10*3/uL Normal 200-950 [facility] Comment on above: Performed By: #### 1 230, 80, 6399 #### [facility] [place] [address] Anglesmith: Jesús Camp MD Monocytes/100 WBC (Bld) 10.4 % Normal [facility] Comment on above: Performed By: #### 1 023, 809, 6399 #### [facility] [place] [address] Ang[place]mith: Jesús Camp MD Neutrophils (Bld) [#/Vol] 3.752 10*3/uL Normal 0730-5540 [facility] Comment on above: Performed By: #### 1 0231, 809, 6399 #### [facility] of [address], [address] [place] [address] Anglesmith: Jesús Camp MD Neutrophils/100 WBC (Bld) 53.6 % Normal [facility] Comment on above: Performed By: #### 1 0231, 809, 6399 #### [facility] of [address], [address] [place] [address] Anglesmith: Jesús Camp MD Platelet mean volume (Bld) [Entitic vol] 11.2 fL Normal 7.5-12.5 [facility] Comment on above: Performed By: #### 1 0231, 809, 6399 #### [facility] of [place] [address] Ang[place]mith: Jesús Camp MD Platelets (Bld) [#/Vol] 227 10*3/uL Normal 140-400 [facility] Comment on above: Performed By: #### 1 0231, 809, 6399 #### [facility] of [address], [address] [place] [address] Anglesmith: Jesús Camp MD RBC (Bld) [#/Vol] 4.73 10*6/uL Normal 3.80-5.10 [facility] Comment on above: Performed By: #### 1 0231, 809, 6399 #### [facility] of [place] [address] [place]: Jesús Camp MD WBC (Bld) [#/Vol] 7.0 10*3/uL Normal 3.8-10.8 [facility] Comment on above: Performed By: #### 1 0231, 809, 6399 #### [facility] of [place] [address] [place]: Jesús Camp MD COMPREHENSIVE METABOLIC PANE [facility] 09-10-2024 Albumin [Mass/Vol] 4.4 g/dL Normal 3.6-5.1 [facility] Comment on above: Order Comment: FASTI NG:YES FASTING: YES Performed By: #### 1 0231, 809, 6399 #### [facility] [place] [address] Ang[place]mith: Jesús Camp MD Albumin/Globulin [Mass ratio] 1.9 {ratio} Normal 1.0-2.5 [facility] Comment on above: Order Comment: FASTI NG:YES FASTING: YES Performed By: #### 1 0231, 809, 6399 #### [facility] [address], [address] [place] [address] Anglesmith: Jesús Camp MD ALP [Catalytic activity/Vol] 104 U/L Normal 37-153 [facility] Comment on above: Order Comment: FASTI NG:YES FASTING: YES Performed By: #### 1 0231, 809, 6399 #### [facility] [address], [address] [place] [address] Ang[place]mith: Jesús Camp MD ALT [Catalytic activity/Vol] 13 U/L Normal 6-29 [facility] Comment on above: Order Comment: FASTI NG:YES FASTING: YES Performed By: #### 1 0231, 809, 6399 #### [facility] [place] [address] Ang[place]mith: Jesús Camp MD AST [Catalytic activity/Vol] 13 U/L Normal 10-35 [facility] Comment on above: Order Comment: FASTI NG:YES FASTING: YES Performed By: #### 1 0231, 809, 6399 #### [facility] [place] [address] Ang[place]mith: Jesús Camp MD Bilirubin [Mass/Vol] 0.2 mg/dL Normal 0.2-1.2 [facility] Comment on above: Order Comment: FASTI NG:YES FASTING: YES Performed By: #### 1 0231, 809, 6399 #### [facility] [address], [address] [place] [address] Ang[place]mith: Jesús Camp MD BUN/CREATININE RATIO SEE NOTE: Normal 6-22 [facility] Comment on above: Order Comment: FASTI NG:YES FASTING: YES Result Comment: Not Reported: BUN and Creatinine are within reference range. Performed By: #### 1 0231, 809, 6399 #### [facility] [address], [address] [place] [address] Ang[place]mith: Jesús Camp MD Calcium [Mass/Vol] 9.1 mg/dL Normal 8.6-10.4 [facility] Comment on above: Order Comment: FASTI NG:YES FASTING: YES Performed By: #### 1 0231, 809, 6399 #### [facility] [place] [address] [place]mith: Jesús Camp MD Chloride [Moles/Vol] 107 mmol/L Normal 98-110 [facility] Comment on above: Order Comment: FASTI NG:YES FASTING: YES Performed By: #### 1 0231, 809, 6399 #### [facility] [address], [address] [place] [address] Ang[place]mith: Jesús Camp MD CO2 [Moles/Vol] 26 mmol/L Normal 20-32 [facility] Comment on above: Order Comment: FASTI NG:YES FASTING: YES Performed By: #### 1 0231, 809, 6399 #### [facility] [place] [address] Ang[place]mith: Jesús Camp MD Creatinine [Mass/Vol] 0.70 mg/dL Normal 0.50-1.[address] [facility] [address] [facility] Comment on above: Order Comment: FASTI NG:YES FASTING: YES Performed By: #### 1 0231, 809, 6399 #### [facility] [place] [address] Ang[place]mith: Jesús Camp MD GFR/1.73 sq M.predicted among non-blacks MDRD (S/P/Bld) [Vol rate/Area] 95 mL/min/{1.73_m2} Normal > OR = 60 [facility] Comment on above: Order Comment: FASTI NG:YES FASTING: YES Performed By: #### 1 0231, 809, 6399 #### [facility] [address], [address] [place] [address] Ang[place]mith: Jesús Camp MD Globulin (S) [Mass/Vol] 2.3 g/dL Normal 1.9-3.7 [facility] Comment on above: Order Comment: FASTI NG:YES FASTING: YES Performed By: #### 1 0231, 809, 6399 #### [facility] [address], [address] [place] [address] Ang[place]mith: Jesús Camp MD Glucose [Mass/Vol] 89 mg/dL Normal 65-99 [facility] Comment on above: Order Comment: FASTI NG:YES FASTING: YES Result Comment: Fasting reference interval Performed By: #### 1 0231, 809, 6399 #### [facility] [address], [address] [place] [address] Ang[place]mith: Jesús Camp MD Potassium [Moles/Vol] 4.3 mmol/L Normal 3.5-5.[address] [facility] Comment on above: Order Comment: FASTI NG:YES FASTING: YES Performed By: #### 1 0231, 809, 6399 #### [facility] [place] [address] Ang[place]mith: Jesús Camp MD Protein [Mass/Vol] 6.7 g/dL Normal 6.1-8.1 [facility] Comment on above: Order Comment: FASTI NG:YES FASTING: YES Performed By: #### 1 0231, 809, 6399 #### [facility] [address], [address] [place] [address] Anglesmith: Jesús Camp MD Sodium [Moles/Vol] 141 mmol/L Normal 135-146 [facility] Comment on above: Order Comment: FASTI NG:YES FASTING: YES Performed By: #### 1 0231, 809, 6399 #### [facility] [place] [address] [place] [address] Anglesmith: Jesús Camp MD Urea nitrogen [Mass/Vol] 17 mg/dL Normal 7-25 [facility] Comment on above: Order Comment: FASTI NG:YES FASTING: YES Performed By: #### 1 0231, 809, 6399 #### [facility] [address], [address] [place] [address] Ang[place]mith: Jesús Camp MD SED RATE BY MODIFIED WESTERG RENon 09-10-2024 SED RATE BY MODIFIED WESTERGREN 17 mm/h Normal < OR = 30 [facility] Comment on above: Performed By: #### 1 0231, 809, 6399 #### [facility] [address], [address] [place] [address] Anglesmith: Jesús Camp MD CBC (INCLUDES DIFF/PLT)on Basophils (Bld) [#/Vol] 0.021 10*3/uL Normal 0-200 [facility] Comment on above: Performed By: #### 1 0231, 6399 #### [facility] [address] [place], [place] [id number] Anglesmith: Winnie Franco #### [id number] #### [facility] [place] [address] Ang[place]mith: Jesús Camp MD Basophils/100 WBC (Bld) 0.3 % Normal [facility] Comment on above: Performed By: #### 1 0231, 6399 #### [facility] [address] [place], [place] [id number] Anglesmith: Winnie Franco #### [id number] #### [facility] [place] [address] Anglesmith: Jesús Camp MD Eosinophils (Bld) [#/Vol] 0.128 10*3/uL Normal 15-500 [facility] Comment on above: Performed By: #### 1 0231, 6399 #### [facility] [facility] [address] [place] [address] [place] [address] Anglesmith: Winnie Franco #### [id number] #### [facility] [place] [address], [address] [place] [address] Anglesmith: Jesús Camp MD Eosinophils/100 WBC (Bld) 1.8 % Normal [facility] Comment on above: Performed By: #### 1 0231, 6399 #### [facility] [address] Ang[place]mith: Winnie Franco #### [id number] #### [facility] [address], [address] [place] [address] Anglesmith: Jesús Camp MD Erythrocyte distribution width (RBC) [Ratio] 13.7 % Normal 11.0-15.0 [facility] Comment on above: Performed By: #### 1 0231, 6399 #### [facility] [address] [place]: Winnie Franco #### 39285 #### [facility] [address], [address] [place] [address] Anglesmith: Jesús Camp MD Hematocrit (Bld) [Volume fraction] 42.4 % Normal 35.0-45.0 [facility] Comment on above: Performed By: #### 1 0231, 6399 #### [facility] [address] [place] [address] Anglesmith: Winnie Franco #### [id number] #### [facility] [address], [address] [place] [address] Anglesmith: Jesús Camp MD Hemoglobin (Bld) [Mass/Vol] 14.3 g/dL Normal 11.7-15.5 [facility] Comment on above: Performed By: #### 1 0231, 6399 #### [facility] [address] [place], [place] [phone] Anglesmith: Winnie Franco #### [id number] #### [facility] [address] , [address] [place] [address] Ang[place]mith: Jesús Camp MD Lymphocytes (Bld) [#/Vol] 2.535 10*3/uL Normal 850-3900 [facility] Comment on above: Performed By: #### 1 0231, 6399 #### [facility] [address] [place] [address] Anglesmith: Winnie Franco #### [id number] #### [facility] [place] [address] [address] , [address] [place] [address] Anglesmith: Jesús Camp MD Lymphocytes/100 WBC (Bld) 35.7 % Normal [facility] Comment on above: Performed By: #### 1 0231, 6399 #### [facility] [address] Ang[place]mith: Winnie Franco #### [id number] #### [facility] [place] [address] [address] , [address] [place] [address] Anglesmith: Jesús Camp MD MCH (RBC) [Entitic mass] 29.8 pg Normal 27.0-33.0 [facility] Comment on above: Performed By: #### 1 0231, 6399 #### [facility] [facility] [address] [place] [address] Anglesmith: Winnie Franco #### 14822 #### [facility] [place] [address] [address] , [address] [place] [address] Anglesmith: Jesús Camp MD MCHC (RBC) [Mass/Vol] 33.7 g/dL Normal 32.0-36.[address] [facility] Comment on above: Performed By: #### 1 0231, 6399 #### [facility] [address] [place] [address] Anglesmith: Winnie Franco #### [id number] #### [facility] [place] [address] [address] , [address] [place] [address] Anglesmith: Jesús Camp MD MCV (RBC) [Entitic vol] 88.3 fL Normal 80.0-100.0 [facility] Comment on above: Performed By: #### 1 0231, 6399 #### [facility] [address] [place]mith: Winnie Franco #### [id number] #### [facility] [address], [address] [place] [address] Ang[place]mith: Jesús Camp MD Monocytes (Bld) [#/Vol] 0.646 10*3/uL Normal 200-950 [facility] Comment on above: Performed By: #### 1 0231, 6399 #### [facility] [address] Ang[place]mith: Winnie Franco #### [id number] #### [facility] [address], [address] [place] [address] Anglesmith: Jesús Camp MD Monocytes/100 WBC (Bld) 9.1 % Normal [facility] Comment on above: Performed By: #### 1 0231, 6399 #### [facility] [address] Ang[place]mith: iWnnie Franco #### [id number] #### [facility] [address], [address] [place] [address] Anglesmith: Jesús Camp MD Neutrophils (Bld) [#/Vol] 3.77 10*3/uL Normal 6307-5098 [facility] Comment on above: Performed By: #### 1 0231, 6399 #### [facility] [facility] [address] [place] [address] Anglesmith: Winnie rFanco #### [id number] #### [facility] [place] [address] [address] , [address] [place] [address] Anglesmith: Jesús Camp MD Neutrophils/100 WBC (Bld) 53.1 % Normal [facility] Comment on above: Performed By: #### 1 0231, 6399 #### [facility] Anglesmith: Winnie Franco #### [id number] #### [facility] of [address], [address] [place], [place] [id number] Anglesmith: Jesús Camp MD Platelet mean volume (Bld) [Entitic vol] 11.3 fL Normal 7.5-12.5 [facility] Comment on above: Performed By: #### 1 0231, 6399 #### [facility] Anglesmith: Winnie Franco #### [id number] #### [facility] [address], [address] [place] [address] Anglesmith: Jesús Camp MD Platelets (Bld) [#/Vol] 212 10*3/uL Normal 140-400 [facility] Comment on above: Performed By: #### 1 0231, 6399 #### [facility] [address] Anglesmith: Winnie Franco #### [id number] #### [facility] [address], [address] [place] [address] Anglesmith: Jesús Camp MD RBC (Bld) [#/Vol] 4.80 10*6/uL Normal 3.80-5.10 [facility] Comment on above: Performed By: #### 1 0231, 6399 #### [facility] [facility] [address] [place] [address] Anglesmith: Winnei Franco #### [id number] #### [facility] of [address], [address] [place] [address] Anglesmith: Jesús Camp MD WBC (Bld) [#/Vol] 7.1 10*3/uL Normal 3.8-10.8 [facility] Comment on above: Performed By: #### 1 0231, 6399 #### [facility] [facility] [address] [place] [address] Anglesmith: Winnie Franco #### [id number] #### [facility] [address], [address] [place] [address] Anglesmith: Jesús Camp MD [facility] METABOLIC PANE [facility] 05-01-2024 Albumin [Mass/Vol] 4.3 g/dL Normal 3.6-5.1 [facility] Comment on above: Performed By: #### 1 0231, 6399 #### [facility] [facility] [address] [place], [place] [phone] Anglesmith: Winnie Franco #### [id number] #### [facility] [address], [address] [place] [address] Anglesmith: Jesús Camp MD Albumin/Globulin [Mass ratio] 1.7 {ratio} Normal 1.0-2.5 [facility] Comment on above: Performed By: #### 1 0231, 6399 #### [facility] [facility] [address] [place] [address] Anglesmith: Winnie Franco #### [id number] #### [facility] [address], [address] [place] [address] Anglesmith: Jesús Camp MD ALP [Catalytic activity/Vol] 91 U/L Normal 37-153 [facility] Comment on above: Performed By: #### 1 0231, 6399 #### [facility] [facility] [address] [place] [phone] Anglesmith: Winnie Franco #### [id number] #### [facility] [address], [address] [place] [address] Anglesmith: Jesús Camp MD ALT [Catalytic activity/Vol] 17 U/L Normal 6-29 [facility] Comment on above: Performed By: #### 1 0231, 6399 #### [facility] [address] [place] [address] Anglesmith: Winnie Franco #### 90051 #### [facility] [address], [address] [place] [address] Anglesmith: Jesús Camp MD AST Normal [facility] Comment on above: Result Comment: TEST NOT PERFORMED Specimen unsuitable for testing due to hemolysis. Performed By: #### 1 0231, 6399 #### [facility] [address] [place] [address] Anglesmith: Winnie Franco #### [id number] #### [facility] [address], [address] [place] [address] Anglesmith: Jesús Camp MD Bilirubin [Mass/Vol] 0.5 mg/dL Normal 0.2-1.2 [facility] Comment on above: Performed By: #### 1 0231, 6399 #### [facility] [address] [place] [address] Anglesmith: Winnie Franco #### [id number] #### [facility] [address], [address] [place] [address] Anglesmith: Jesús Camp MD BUN/CREATININE RATIO SEE NOTE: Normal 6-22 [facility] Comment on above: Result Comment: Not Reported: BUN and Creatinine are within reference range. Performed By: #### 1 0231, 6399 #### [facility] [address] [place] [address] Anglesmith: Winnie Franco #### [id number] #### [facility] [address], [address] [place] [address] Anglesmith: Jesús Camp MD Calcium [Mass/Vol] 9.1 mg/dL Normal 8.6-10.4 [facility] Comment on above: Performed By: #### 1 0231, 6399 #### [facility] [facility] [address] [place], [place] [phone] Anglesmith: Winnie Franco #### [id number] #### [facility] [place] [address] [address] , [address] [place] [address] Anglesmith: Jesús Camp MD Chloride [Moles/Vol] 107 mmol/L Normal 98-110 [facility] Comment on above: Performed By: #### 1 0231, 6399 #### [facility] Anglesmith: Winnie Franco #### 93946 #### [facility] [place] [address], [address] [place] [address] Anglesmith: Jesús Camp MD CO2 [Moles/Vol] 24 mmol/L Normal 20-32 [facility] Comment on above: Performed By: #### 1 0231, 6399 #### [facility] [address] Anglesmith: Winnie Franco #### [id number] #### [facility] [address], [address] [place] [address] Anglesmith: Jesús Camp MD Creatinine [Mass/Vol] 0.64 mg/dL Normal 0.50-1.[address] [facility] Comment on above: Performed By: #### 1 0231, 6399 #### [facility] Anglesmith: Winnie Franco #### [id number] #### [facility] [address], [address] [place] [address] Ang[place]mith: Jesús Camp MD GFR/1.73 sq M.predicted among non-blacks MDRD (S/P/Bld) [Vol rate/Area] 97 mL/min/{1.73_m2} Normal > OR = 60 [facility] Comment on above: Performed By: #### 1 0231, 6399 #### [facility] [phone] Anglesmith: Winnie Franco #### 91999 #### [facility] [address], [address] [place] [address] Anglesmith: Jesús Camp MD Globulin (S) [Mass/Vol] 2.6 g/dL Normal 1.9-3.7 [facility] Comment on above: Performed By: #### 1 0231, 6399 #### [facility] [address] Anglesmith: Winnie Franco #### [id number] #### [facility] [address], [address] [place] [address] Anglesmith: Jesús Camp MD Glucose [Mass/Vol] 77 mg/dL Normal 65-99 [facility] Comment on above: Result Comment: Fasting reference interval Performed By: #### 1 0231, 6399 #### [facility] [address] [place]mith: Winnie Franco #### [id number] #### [facility] [address], [address] [place] [address] Anglesmith: Jesús Camp MD POTASSIUM Normal [facility] Comment on above: Result Comment: TEST NOT PERFORMED Specimen unsuitable for testing due to hemolysis. Performed By: #### 1 0231, 6399 #### [facility] [address] Anglesmith: Winnie Franco #### 32102 #### [facility] [address], [address] [place] [address] Anglesmith: Jesús Camp MD Protein [Mass/Vol] 6.9 g/dL Normal 6.1-8.1 [facility] Comment on above: Performed By: #### 1 0231, 6399 #### [facility] [address] [place] [address] Anglesmith: Winnie Franco #### [id number] #### [facility] [address], [address] [place] [address] Anglesmith: Jesús Camp MD Sodium [Moles/Vol] 141 mmol/L Normal 135-146 [facility] Comment on above: Performed By: #### 1 0231, 6399 #### [facility] [address] [place], [place] [id number] Anglesmith: Winnie Franco #### [id number] #### [facility] [address], [address] [place], [place] [id number] Anglesmith: Jesús Camp MD Urea nitrogen [Mass/Vol] 18 mg/dL Normal 7-25 [facility] Comment on above: Performed By: #### 1 0231, 6399 #### [facility] [address] Anglesmith: Winnie Franco #### [id number] #### [facility] [address], [address] [place] [address] Ang[place]mith: Jesús Camp MD SED RATE BY MODIFIED WESTERG ORIANAon 05-01-2024 SED RATE BY MODIFIED WESTERGREN 12 mm/h Normal < OR = 30 [facility] Comment on above: Performed By: #### 1 0231, 6399 #### [facility] [address] Anglesmith: Winnie Franco #### [id number] #### [facility] [address], [address] [place] [address] Anglesmith: Jesús Camp MD SPECIMEN INTEGRITY COMPROMIS EDon 05-01-2024 SPECIMEN INTEGRITY COMPROMISED Normal [facility] Comment on above: Order Comment: FASTI NG:YES FASTING: YES Result Comment: Whole blood, unspun or partially spun gel barrier tube received more than 2 hours since collection. A false decrease in glucose may occur due to prolonged contact with red cells. Performed By: #### 1 0231, 6399 #### [facility] [address] [place] [id number] Anglesmith: Winnie Franco #### [id number] #### [facility] [address], [address] [place] [address] Anglesmith: Jesús Camp MD US Eye+Orbit - bilateralon 0 04-21-2024 A LENGTH (OD) 22.54 [facility] A LENGTH (OS) 22.64 [facility] Right Eye Axial length was 22.54. Left Eye Axial length was 22.64. [facility] Radiology Study observation (narrative) [facility] Albumin [Mass/volume] in Ser um or PlasmaOrdered By: Nenita Larsen on 06-26-2022 Albumin [Mass/Vol] 3.6 g/dL 3.2-5.5 [facility] Basophils Auto (Bld) [#/Vol] Ordered By: Nenita Larsen on 06-26-2022 Basophils (Bld) [#/Vol] 0.0 10*3/uL 0.0-0.2 [facility] Basophils/100 WBC Auto (Bld) Ordered By: Nenita Larsen on 06-26-2022 Basophils/100 WBC (Bld) 0.6 % . F [facility] Complete Blood Count Auto Di ffon 06-26-2022 Basophils (Bld) [#/Vol] 0.0 10*3/uL Normal 0.0-0.2 [facility] Comment on above: Performed By: #### C MP, CBC, ESR #### [facility] [address] Basophils/100 WBC (Bld) 0.6 % Normal . F [facility] Comment on above: Performed By: #### C MP, CBC, ESR #### [facility] [address] [place] [address] [place] Eosinophils (Bld) [#/Vol] 0.1 10*3/uL Normal 0.0-0.45 [facility] Comment on above: Performed By: #### C MP, CBC, ESR #### [facility] [address] [place] [address] [place] Eosinophils/100 WBC (Bld) 1.7 % Normal . [facility] Comment on above: Performed By: #### C MP, CBC, ESR #### [facility] [address] [place] [address] [place] Erythrocyte distribution width (RBC) [Ratio] 14.9 % Normal 11.9-15.3 [facility] Comment on above: Performed By: #### C MP, CBC, ESR #### [address] Hematocrit (Bld) [Volume fraction] 42.8 % Normal 34.0-46.4 [facility] Comment on above: Performed By: #### C MP, CBC, ESR #### [address] Hemoglobin (Bld) [Mass/Vol] 13.8 g/dL Normal 11.8-15.4 [facility] Comment on above: Performed By: #### C MP, CBC, ESR #### [address] Lymphocytes (Bld) [#/Vol] 2.1 10*3/uL Normal 1.00-4.8 [facility] Comment on above: Performed By: #### C MP, CBC, ESR #### [address] Lymphocytes/100 WBC (Bld) 26.9 % Normal . [facility] Comment on above: Performed By: #### C MP, CBC, ESR #### [address] MCH (RBC) [Entitic mass] 29.1 pg Normal 24.7-34.3 [facility] Comment on above: Performed By: #### C MP, CBC, ESR #### [address] MCV (RBC) [Entitic vol] 90.3 fL Normal 80-100 F [facility] Comment on above: Performed By: #### C MP, CBC, ESR #### [address] Mean Corpuscular HGB Conc 32.2 g/dL Normal 32.0-35.0 [facility] Comment on above: Performed By: #### C MP, CBC, ESR #### [address] [place] [address] [place] Monocytes (Bld) [#/Vol] 0.6 10*3/uL Normal 0.0-0.8 [facility] Comment on above: Performed By: #### C MP, CBC, ESR #### [facility] [address] [place] [address] [place] Monocytes/100 WBC (Bld) 8.1 % Normal . F [facility] Comment on above: Performed By: #### C MP, CBC, ESR #### [facility] [address] [place] [address] [place] Neutrophils (Bld) [#/Vol] 4.9 10*3/uL Normal 1.8-7.7 [facility] Comment on above: Performed By: #### C MP, CBC, ESR #### [facility] [address] Neutrophils/100 WBC (Bld) 62.7 % Normal . [facility] Comment on above: Performed By: #### C MP, CBC, ESR #### [facility] [address] [place] [address] [place] Nucleated RBC/100 WBC (Bld) [Ratio] 0.0 % Normal 0-0.5 [facility] Comment on above: Performed By: #### C MP, CBC, ESR #### [facility] [address] [place] [address] [place] Platelet mean volume (Bld) [Entitic vol] 9.6 fL Normal 6.3-10.7 [facility] Comment on above: Performed By: #### C MP, CBC, ESR #### [facility] [address] [place] [address] [place] Platelets (Bld) [#/Vol] 196 10*3/uL Normal 150-450 [facility] Comment on above: Performed By: #### C MP, CBC, ESR #### [facility] [address] [place] [address] [place] RBC (Bld) [#/Vol] 4.74 10*6/uL Normal 3.60-5.00 [facility] Comment on above: Performed By: #### C MP, CBC, ESR #### [address] WBC (Bld) [#/Vol] 7.9 10*3/uL Normal 4.5-11.0 [facility] Comment on above: Performed By: #### C MP, CBC, ESR #### [address] Comprehensive Metabolic Pane booker 06-26-2022 Albumin [Mass/Vol] 3.6 g/dL Normal 3.2-5.5 [facility] Comment on above: Performed By: #### C MP, CBC, ESR #### [address] Albumin/Globulin [Mass ratio] 1.5 {ratio} Normal [facility] Comment on above: Performed By: #### C MP, CBC, ESR #### [address] ALP [Catalytic activity/Vol] 103 U/L High 32-92 [facility] Comment on above: Result Comment: PERF ORMED BY: [place] [address] PATHOLOGIST TIE CARRIER ELAINE HAMLIN M.D. Performed By: #### C MP, CBC, ESR #### [address] ALT [Catalytic activity/Vol] 13 U/L Normal 10-60 [facility] Comment on above: Performed By: #### C MP, CBC, ESR #### [address] Anion gap [Moles/Vol] 12.5 mmol/L Normal 6.0-15.0 [facility] Comment on above: Performed By: #### C MP, CBC, ESR #### [address] AST [Catalytic activity/Vol] 16 U/L Normal 10-42 [facility] Comment on above: Performed By: #### C MP, CBC, ESR #### [facility] [address] [place] [address] [place] Bilirubin [Mass/Vol] 0.3 mg/dL Normal 0.3-1.2 [facility] Comment on above: Performed By: #### C MP, CBC, ESR #### [facility] [address] Calcium [Mass/Vol] 9.0 mg/dL Normal 8.2-10.2 [facility] Comment on above: Performed By: #### C MP, CBC, ESR #### [facility] [address] Chloride [Moles/Vol] 106 mmol/L Normal 95-114 [facility] Comment on above: Performed By: #### C MP, CBC, ESR #### [facility] [address] CO2 [Moles/Vol] 24.4 mmol/L Normal 22.0-30.0 [facility] Comment on above: Performed By: #### C MP, CBC, ESR #### [facility] [address] Creatinine [Mass/Vol] 0.77 mg/dL Normal 0.44-1.03 [facility] Comment on above: Performed By: #### C MP, CBC, ESR #### [facility] [address] Estimated GFR ( Denise > 60 Normal [facility] Comment on above: Result Comment: GFR estimated reference range: According to KDOQI guidelines, <60 ml/min/1.73m2 is sufficient to diagnose a patient with chronic kidney disease. Performed By: #### C MP, CBC, ESR #### [facility] [address] [place] [address] [place] Estimated GFR (Non- Am > 60 Normal [facility] Comment on above: Performed By: #### C MP, CBC, ESR #### [facility] [address] Globulin (S) [Mass/Vol] 2.4 g/dL Normal [facility] Comment on above: Performed By: #### C MP, CBC, ESR #### [facility] [address] [place] [address] [place] Glucose [Mass/Vol] 122 mg/dL High 70-100 [facility] Comment on above: Result Comment: [place] Glucose Reference Range is dependent on time and content of last meal. Glucose of more than 200 mg/dL in a nonstressed, ambulatory subject supports the diagnosis of Diabetes Mellitus. ADA recommended reference range Performed By: #### C MP, CBC, ESR #### [facility] [address] Potassium [Moles/Vol] 3.9 mmol/L Normal 3.5-5.1 [facility] Comment on above: Performed By: #### C MP, CBC, ESR #### [facility] [address] Protein [Mass/Vol] 6.0 g/dL Low 6.1-7.9 [facility] Comment on above: Performed By: #### C MP, CBC, ESR #### [facility] [address] [place] [address] [place] Sodium [Moles/Vol] 139 mmol/L Normal 136-146 [facility] Comment on above: Performed By: #### C MP, CBC, ESR #### [facility] [address] [place] [id number] [place] Urea nitrogen [Mass/Vol] 17 mg/dL Normal 9-23 [facility] Comment on above: Performed By: #### C MP, CBC, ESR #### [facility] [address] [place] [address] [place] Creatinine and Glomerular fi ltration rate.predicted panel (S/P/Bld)Ordered By: Nenita Larsen on 06-26-2022 Creatinine [Mass/Vol] 0.77 mg/dL 0.44-1.03 [facility] Eosinophils Auto (Bld) [#/Vo l]Ordered By: Nenita Larsen on 06-26-2022 Eosinophils (Bld) [#/Vol] 0.1 10*3/uL 0.0-0.45 [facility] Eosinophils/100 WBC Auto (Bl d)Ordered By: Nenita Larsen on 06-26-2022 Eosinophils/100 WBC (Bld) 1.7 % . [facility] Erythrocyte Sedimentation Ra jen 06-26-2022 ESR (Bld) [Velocity] 25 mm/h Normal 0-29 [facility] Comment on above: Result Comment: PERF ORMED BY: [facility] [address] [place] [address] PATHOLOGIST TIE CARRIER ELAINE HAMLIN M.D. Performed By: #### C MP, CBC, ESR #### [facility] [address] Erythrocyte distribution wid th Auto (RBC) [Ratio]Ordered By: Nenita Larsen on 06-26-2022 Erythrocyte distribution width (RBC) [Ratio] 14.9 % 11.9-15.3 [facility] Erythrocyte sedimentation ra te by Photometric methodOrdered By: Nenita Larsen on 06-26-2022 ESR Photometric method (Bld) [Velocity] 25 mm/hr 0-29 [facility] Estimated glomerular filtrat ion rate (GFR) non- AmericanOrdered By: Nenita Larsen on 06-26-2022 GFR/1.73 sq M.predicted among non-blacks MDRD (S/P/Bld) [Vol rate/Area] > 60 mL/Min [facility] Globulin Calc (S) [Mass/Vol] Ordered By: Nenita Larsen on 06-26-2022 Globulin (S) [Mass/Vol] 2.4 g/dL F [facility] Hematocrit Auto (Bld) [Volum e fraction]Ordered By: Nenita Larsen on 06-26-2022 Hematocrit (Bld) [Volume fraction] 42.8 % 34.0-46.4 [facility] Hemoglobin [Mass/volume] in BloodOrdered By: Nenita Larsen on 06-26-2022 Hemoglobin (Bld) [Mass/Vol] 13.8 g/dL 11.8-15.4 [facility] - Hematology and Cell countsOrdered By: Nenita Larsen on 06-26-2022 Nucleated RBC/100 WBC (Bld) [Ratio] 0.0 % 0-0.5 [facility] Leukocytes [#/volume] in Blo od by Automated countOrdered By: Nenita Larsen on 06-26-2022 WBC (Bld) [#/Vol] 7.9 10*3/uL 4.5-11.0 [facility] Lymphocytes Auto (Bld) [#/Vo l]Ordered By: Nenita Larsen on 06-26-2022 Lymphocytes (Bld) [#/Vol] 2.1 10*3/uL 1.00-4.8 [facility] Lymphocytes/100 WBC Auto (Bl d)Ordered By: Nenita Larsen on 06-26-2022 Lymphocytes/100 WBC (Bld) 26.9 % . [facility] MCH Auto (RBC) [Entitic mass ]Ordered By: Nenita Larsen on 06-26-2022 MCH (RBC) [Entitic mass] 29.1 pg 24.7-34.3 [facility] MCHC Auto (RBC) [Mass/Vol]Or dered By: Nenita Larsen on 06-26-2022 MCHC (RBC) [Mass/Vol] 32.2 g/dL 32.0-35.0 [facility] MCV Auto (RBC) [Entitic vol] Ordered By: Nenita Larsen on 06-26-2022 MCV (RBC) [Entitic vol] 90.3 fL 80-100 F [facility] Monocytes Auto (Bld) [#/Vol] Ordered By: Nenita Larsen on 06-26-2022 Monocytes (Bld) [#/Vol] 0.6 10*3/uL 0.0-0.8 [facility] Monocytes/100 WBC Auto (Bld) Ordered By: Nenita Larsen on 06-26-2022 Monocytes/100 WBC (Bld) 8.1 % . F [facility] Neutrophils Auto (Bld) [#/Vo l]Ordered By: Nenita Larsen on 06-26-2022 Neutrophils (Bld) [#/Vol] 4.9 10*3/uL 1.8-7.7 [facility] Neutrophils/100 WBC Auto (Bl d)Ordered By: Nenita Larsen on 06-26-2022 Neutrophils/100 WBC (Bld) 62.7 % . [facility] No Panel InformationOrdered By: Nenita Larsen on 06-26-2022 Estimated GFR () > 60 mL/Min [facility] Comment on above: GFR estimated refere nce range: According to KDOQI guidelines, <60 ml/min/1.73m2 is sufficient to diagnose a patient with chronic kidney disease. Pharmacy Creatinine Clearance (Chem N/A [facility] Platelet mean volume Auto (B ld) [Entitic vol]Ordered By: Nenita Larsen on 06-26-2022 Platelet mean volume (Bld) [Entitic vol] 9.6 fL 6.3-10.7 [facility] Platelets Auto (Bld) [#/Vol] Ordered By: Nenita Larsen on 06-26-2022 Platelets (Bld) [#/Vol] 196 10*3/uL 150-450 [facility] Protein [Mass/volume] in Ser um or PlasmaOrdered By: Nenita Larsen on 06-26-2022 Protein [Mass/Vol] 6.0 g/dL 6.1-7.9 [facility] RBC Auto (Bld) [#/Vol]Ordere d By: Nenita Larsen on 06-26-2022 RBC (Bld) [#/Vol] 4.74 10*6/uL 3.60-5.00 [facility] Serum or plasma alanine schmitz otransferase measurement without P-5'-P (enzymatic activiOrdered By: Nenita Larsen on 06-26-2022 ALT No additional P-5'-P [Catalytic activity/Vol] 13 U/L 10-60 [facility] Serum or plasma albumin/glob ulin mass ratioOrdered By: Nenita Larsen on 06-26-2022 Albumin/Globulin [Mass ratio] 1.5 {ratio} [facility] Serum or plasma alkaline jesi sphatase measurement (enzymatic activity/volume)Ordered By: Nenita Larsen on 06-26-2022 ALP [Catalytic activity/Vol] 103 U/L 32-92 [facility] Serum or plasma anion gap de terminationOrdered By: Nenita Larsen on 06-26-2022 Anion gap [Moles/Vol] 12.5 mmol/L 6.0-15.0 [facility] Serum or plasma aspartate am inotransferase measurement (enzymatic activity/volume)Ordered By: Nenita Larsen on 06-26-2022 AST [Catalytic activity/Vol] 16 U/L 10-42 [facility] Serum or plasma calcium davonte urement (mass/volume)Ordered By: Nenita Larsen on 06-26-2022 Calcium [Mass/Vol] 9.0 mg/dL 8.2-10.2 [facility] Serum or plasma chloride thao surement (moles/volume)Ordered By: Nenita Larsen on 06-26-2022 Chloride [Moles/Vol] 106 mmol/L 95-114 [facility] Serum or plasma glucose davonte urement (mass/volume)Ordered By: Nenita Larsen on 06-26-2022 Glucose [Mass/Vol] 122 mg/dL 70-100 [facility] Comment on above: ADA recommended refe rence rangeRandom Glucose Reference Range is dependent on time and content of last meal. Glucose of more than 200 mg/dL in a nonstressed, ambulatory subject supports the diagnosis of Diabetes Mellitus. Serum or plasma potassium me asurement (moles/volume)Ordered By: Nenita Larsen on 06-26-2022 Potassium [Moles/Vol] 3.9 mmol/L 3.5-5.1 [facility] Serum or plasma sodium measu rement (moles/volume)Ordered By: Nenita Larsen on 06-26-2022 Sodium [Moles/Vol] 139 mmol/L 136-146 [facility] Serum or plasma total biliru bin measurement (mass/volume)Ordered By: Nenita Larsen on 06-26-2022 Bilirubin [Mass/Vol] 0.3 mg/dL 0.3-1.2 [facility] Serum or plasma total carbon dioxide measurement (moles/volume)Ordered By: Nenita Larsen on 06-26-2022 CO2 [Moles/Vol] 24.4 mmol/L 22.0-30.0 [facility] Serum or plasma urea nitroge n measurement (mass/volume)Ordered By: Nenita Larsen on 06-26-2022 Urea nitrogen [Mass/Vol] 17 mg/dL 05-18 [facility] CBC AUTO DIFFon 03-13-2021 BASO # 0.1 103/ul Normal 0.0-0.1 [facility] Comment on above: Performed By: #### C BC #### [facility] [address] [place], [place] [address] Emily Sommer Basophils/100 WBC (Bld) 0.4 % Normal 0.2-2.0 [facility] Comment on above: Performed By: #### C BC #### [facility] [address] [place], [place] [address] Emily Sommer EO # 0.1 103/ul Normal 0.0-0.7 [facility] Comment on above: Performed By: #### C BC #### [facility] [address] [place], [place] [address] Emily Sommer Eosinophils/100 WBC (Bld) 0.8 % Critically low 0.9-7.0 [facility] Comment on above: Performed By: #### C BC #### [facility] [address] [place], [place] [address] Emily Sommer Erythrocyte distribution width (RBC) [Ratio] 16.1 % Critically high 11.0-15.0 [facility] Comment on above: Performed By: #### C BC #### [facility] [address] [place], [place] [address] Emily Sommer Hematocrit (Bld) [Volume fraction] 44.2 % Normal 36.0-48.0 [facility] Comment on above: Performed By: #### C BC #### [facility] [address] [place], [place] [address] Emily Sommer Hemoglobin (Bld) [Mass/Vol] 14.4 g/dL Normal 12.0-16.0 [facility] Comment on above: Performed By: #### C BC #### [facility] [address] [place] [id number] Emily Sommer IG # 0.05 10e3/ul Critically high 0.00-0.03 [facility] Comment on above: Performed By: #### C BC #### [facility] [address] [place], [place] [id number] Emily Sommer IG % 0.4 % Normal 0.0-0.5 [facility] Comment on above: Performed By: #### C BC #### [facility] [address] [place], [place] [id number] Emily Sommer LYMPH # 4.7 103/ul Critically high 1.2-3.8 [facility] Comment on above: Performed By: #### C BC #### [facility] [address] [place], [place] [id number] Emily Sommer Lymphocytes/100 WBC (Bld) 35.9 % Normal 20.5-60.0 [facility] Comment on above: Performed By: #### C BC #### [facility] [address] [place], [place] [id number] Emily Sommer MANUAL DIFF REQ NO Normal [facility] Comment on above: Performed By: #### C BC #### [facility] [address] [place], [place] [id number] Emily Sommer MCH (RBC) [Entitic mass] 30.6 pg Normal 26.7-34.0 [facility] Comment on above: Performed By: #### C BC #### [facility] [address] [place], [place] [id number] Emily Sommer MCHC (RBC) [Mass/Vol] 32.6 g/dL Normal 29.9-35.2 [facility] Comment on above: Performed By: #### C BC #### [facility] [address] [place] [address] Emily Sommer MCV (RBC) [Entitic vol] 93.8 fL Normal 81.0-99.0 [facility] Comment on above: Performed By: #### C BC #### [facility] [address] [place], [place] [id number] Emily Sommer MONO # 0.8 103/ul Normal 0.3-0.8 [facility] Comment on above: Performed By: #### C BC #### [facility] [address] [place], [place] [id number] Emily Sommer Monocytes/100 WBC (Bld) 6.2 % Normal 1.7-12.0 [facility] Comment on above: Performed By: #### C BC #### [facility] [address] [place], [place] [id number] Emily Novoa NEUT # 7.4 103/ul Critically high 1.4-6.5 [facility] Comment on above: Performed By: #### C BC #### [facility] [address] [place], [place] [id number] Emily Novoa Neutrophils/100 WBC (Bld) 56.3 % Normal 43.0-75.0 [facility] Comment on above: Performed By: #### C BC #### [facility] [address] [place], [place] [id number] Emily Novoa Platelet mean volume (Bld) [Entitic vol] 10.2 fL Normal 9.5-13.5 [facility] Comment on above: Performed By: #### C BC #### [facility] [address] [place], [place] [id number] Emilydenzel Pompaen PLT 259 103/ul Normal 150-450 [facility] Comment on above: Performed By: #### C BC #### [facility] [address] [place], [place] [id number] Emilydenzel Pompaen RBC 4.71 106/ul Normal 4.20-5.40 [facility] Comment on above: Performed By: #### C BC #### [facility] [address] [place], [place] [id number] Emilydenzel Pompaen WBC 13.2 103/ul Critically high 4.0-11.0 [facility] Comment on above: Performed By: #### C BC #### [facility] [address] [place], [place] [id number] Emily Novoa CREATININEon 03-13-2021 Creatinine [Mass/Vol] 0.96 mg/dL Normal 0.52-1.04 [facility] Comment on above: Performed By: #### C TERESA, AST, ALT #### [facility] [address] [place], [place] [id number] Emilydenzel Pompaen EGFR-AF TURKMEN >60 Normal >=60 [facility] Comment on above: Performed By: #### C TERESA, AST, ALT #### [facility] [address] [place] [address] Emily Novoa EGFR-NON AF TURKMEN 59 mL/min/1.73m2 Critically low >=60 [facility] Comment on above: Performed By: #### C TERESA, AST, ALT #### [facility] [address] [place] [address] Emily Novoa SED RATE WESTERGRENon 2020 SED RATE 30 mm/hr Normal <=30 [facility] Comment on above: Performed By: #### S EDR #### [facility] [address] [place] [address] Emily Novoa SGOTon 03-13-2021 AST [Catalytic activity/Vol] 17 U/L Normal 14-36 [facility] Comment on above: Performed By: #### C TERESA, AST, ALT #### [facility] [address] [place] [address] Emily Novoa SGPTon 03-13-2021 ALT [Catalytic activity/Vol] 16 U/L Normal 9-52 [facility] Comment on above: Performed By: #### C TERESA, AST, ALT #### [facility] [address] [place] [address] Emily Novoa CYCLIC CITRULLINATED PEPTIDE AB (CCP)on 12-06-2020 CCP Antibodies IgG/IgA 10 units Normal 0-19 [facility] Comment on above: Result Comment: Nega tive <20 Weak positive 20 - 39 Moderate positive 40 - 59 Strong positive >59 Performed By: #### C CPAB #### [facility] [address] [place] [address] Emily Novoa RHEUMATOID FACTORon 12-05-19 21 RA Latex Turbid. <10.0 Normal 0.0-13.9 [facility] Comment on above: Performed By: #### R F #### [facility] [address] [place] [address] Emily Novoa XR CSPINE MIN 4 VIEWSon 03-1 2-2021 XR CSPINE MIN 4 VIEWS EXAMINATION: XR [...] by: TRACY PATEL Date: 2020-11-04 13:41 Normal [facility] Vital Signs Date Time Vital Sign Value Performing Clinician Facility 04-01-2025 08:24-0400 Body height 170.2 cm Apolonia James DO Work Phone: [facility] 04-01-2025 08:24-0400 Body mass index (BMI) [Ratio] 32.26 kg/m2 Apolonia James DO Work Phone: [facility] 04-01-2025 08:24-0400 Body weight 93.44 kg Apolonia James DO Work Phone: [facility] 03-25-2025 07:57-0400 Body height 170.2 cm Apolonia James DO Work Phone: [facility] 03-25-2025 07:57-0400 Body mass index (BMI) [Ratio] 32.26 kg/m2 Apolonia James DO Work Phone: [facility] 03-25-2025 07:57-0400 Body weight 93.44 kg Apolonia James DO Work Phone: [facility] 03-18-2025 08:22-0400 Body height 170.2 cm Apolonia James DO Work Phone: [facility] 03-18-2025 08:22-0400 Body mass index (BMI) [Ratio] 32.26 kg/m2 Apolonia James DO Work Phone: [facility] 03-18-2025 08:22-0400 Body weight 93.44 kg Apolonia James DO Work Phone: [facility] 02-16-2025 08:32-0400 Body height 170.2 cm Apolonia James DO Work Phone: [facility] 02-16-2025 08:32-0400 Body mass index (BMI) [Ratio] 32.26 kg/m2 Apolonia James DO Work Phone: [facility] 02-16-2025 08:32-0400 Body weight 93.44 kg Apolonia James DO Work Phone: [facility] 01-01-2025 10:05-0400 Heart rate 69 /min Esparza Sarmini [facility] 01-01-2025 10:05-0400 Respiratory rate 21 /min Esparza Sarmini [facility] 01-01-2025 10:05-0400 SaO2% (BldA) [Mass fraction] 100 % Esparza Sarmini [facility] 01-01-2025 10:05-0400 Blood Pressure Location Esparza Sarmini [facility] 01-01-2025 10:05-0400 Diastolic blood pressure 99 mm[Hg] Esparza Sarmini [facility] 01-01-2025 10:05-0400 Mean blood pressure 111 mm[Hg] Esparza Sarmini [facility] 01-01-2025 10:05-0400 Systolic blood pressure 136 mm[Hg] Esparza Sarmini [facility] 01-01-2025 09:55-0400 Heart rate 68 /min Esparza Sarmini [facility] 01-01-2025 09:55-0400 Respiratory rate 27 /min Esparza Sarmini [facility] 01-01-2025 09:55-0400 SaO2% (BldA) [Mass fraction] 96 % Esparza Sarmini [facility] 01-01-2025 09:55-0400 Blood Pressure Location Esparza Sarmini [facility] 01-01-2025 09:55-0400 Diastolic blood pressure 71 mm[Hg] Esparza Sarmini [facility] 01-01-2025 09:55-0400 Mean blood pressure 85 mm[Hg] Esparza Sarmini [facility] 01-01-2025 09:55-0400 Systolic blood pressure 114 mm[Hg] Esparza Sarmini [facility] 01-01-2025 09:50-0400 Heart rate 72 /min Esparza Sarmini [facility] 01-01-2025 09:50-0400 SaO2% (BldA) [Mass fraction] 94 % Esparza Sarmini [facility] 01-01-2025 09:50-0400 Respiratory rate 17 /min Esparza Sarmini [facility] 01-01-2025 09:50-0400 Blood Pressure Location Esparza Sarmini [facility] 01-01-2025 09:50-0400 Diastolic blood pressure 64 mm[Hg] Esparza Sarmini [facility] 01-01-2025 09:50-0400 Mean blood pressure 69 mm[Hg] Esparza Sarmini [facility] 01-01-2025 09:50-0400 Systolic blood pressure 80 mm[Hg] Esparza Sarmini [facility] 01-01-2025 09:47-0400 Body temperature 98.24 [degF] Esparza Sarmini [facility] 01-01-2025 09:35-0400 Respiratory rate 16 /min Esparza Sarmini [facility] 01-01-2025 09:30-0400 Respiratory rate 15 /min Esparza Sarmini [facility] 01-01-2025 09:25-0400 Respiratory rate 15 /min Esparza Sarmini [facility] 01-01-2025 08:15-0400 Body temperature 97.34 [degF] Esparza Sarmini [facility] 12-24-2024 08:58-0400 Body height 170.2 cm [...] 10-26-2024 10:54-0500 Body weight 90.72 kg Kingsley Brown DPM Work Phone: [facility] 10-26-2024 10:54-0500 Respiratory rate 18 /min Kingsley Brown DPM Work Phone: [facility] Healthcare Encounters Encounter Date Encounter Type Care Provider Facility Start: 04-01-2025 End: 04-01-2025 Bamboo flowsheet Apolonia James DO Work Phone: [facility] Start: 04-01-2025 End: 04-01-2025 Bamboo flowsheet Apolonia James DO Work Phone: [facility] Start: 04-01-2025 End: 04-01-2025 ambulatory APOLONIA JAMES Not Available Start: 04-01-2025 End: 04-01-2025 Patient encounter procedure Apolonia James DO Work Phone: [facility] Comment on above: Osteoarthritis of ri ght knee, unspecified osteoarthritis type (Primary Dx) Start: 03-25-2025 End: 03-25-2025 Bamboo flowsheet Apolonia Jett James DO Work Phone: [facility] Start: 03-25-2025 End: 03-25-2025 Bamboo flowsheet Apolonia Jett James DO Work Phone: [facility] Start: 03-25-2025 End: 03-25-2025 Patient encounter procedure Apolonia James DO Work Phone: [facility] Comment on above: Osteoarthritis of ri ght knee, unspecified osteoarthritis type (Primary Dx) Start: 03-25-2025 End: 03-25-2025 ambulatory APOLONIA JAMES Not Available Start: 03-18-2025 End: 03-18-2025 Bamboo flowsheet Apolonia James DO Work Phone: [facility] Start: 03-18-2025 End: 03-18-2025 Bamboo flowsheet Apolonia Jett Jaems DO Work Phone: [facility] Start: 03-18-2025 End: 03-18-2025 Patient encounter procedure Apolonia James DO Work Phone: [facility] Comment on above: Osteoarthritis of ri ght knee, unspecified osteoarthritis type (Primary Dx) Start: 03-18-2025 End: 03-18-2025 ambulatory APOLONIA JAMES Not Available Start: 02-16-2025 End: 02-16-2025 Bamboo flowsheet Apolonia James DO Work Phone: [facility] Start: 02-16-2025 End: 02-16-2025 Bamboo flowsheet Apolonia Jett James DO Work Phone: [facility] Start: 02-16-2025 End: 02-16-2025 ambulatory APOLONIA JAMES Not Available Start: 02-16-2025 End: 02-16-2025 Patient encounter procedure Apolonia James DO Work Phone: [facility] Comment on above: Bilateral primary os teoarthritis of knee (Primary Dx) Start: 02-05-2025 End: 02-05-2025 ambulatory Esparza Talal Sarmini Facility:[facility] Start: 02-05-2025 End: 02-05-2025 Patient encounter procedure Esparza Talal Davidmini [facility] Start: 01-14-2025 End: 01-14-2025 ambulatory KINGSLEY GUIDO Not Available Start: 01-01-2025 End: 01-01-2025 ambulatory Esparza Talal Sarmini Facility:[facility] Start: 01-01-2025 End: 01-01-2025 Patient encounter procedure Esparza Talal Davidmini [facility] Start: 12-24-2024 End: 12-24-2024 Bamboo flowsheet Kingsley Guido DPM Work Phone: [facility] Start: 12-24-2024 End: 12-24-2024 Bamboo flowsoswald Guido DPM Work Phone: [facility] [...] pain, right Start: 12-18-2024 End: 12-18-2024 Bamboo flowsoswald James DO Work Phone: [facility] Start: 12-18-2024 End: 12-18-2024 Bamboo flowsoswald James DO Work Phone: [facility] Start: 12-18-2024 End: 12-18-2024 ambulatory APOLONIA JAEMS Not Available Start: 12-18-2024 End: 12-18-2024 Patient [...] Start: 11-27-2024 End: 11-28-2024 ambulatory Shaila Cordova Facility:[facility] Start: 11-27-2024 End: 11-28-2024 Patient encounter procedure Shaila Cordova [facility] Start: 11-23-2024 End: 11-23-2024 ambulatory Esparza Talal Davidmini Facility:[facility] Start: 11-12-2024 End: 11-12-2024 Bamboo flowsheet Kingsley Guido DPM Work Phone: [facility] Start: 11-12-2024 End: 11-12-2024 Bamboo flowsheet Kingsley Guido DPM Work Phone: [facility] Start: 11-12-2024 End: 11-12-2024 ambulatory KINGSLEY GUIDO Not Available Start: 10-30-2024 ambulatory Shaila Richard Facility:[facility] Start: 10-26-2024 End: 10-26-2024 Bamboo flowsheet Kingsley [...] 11-23-2022 End: 11-23-2022 Patient encounter procedure Shaila Louis Richard [facility] Start: 06-26-2022 End: 06-26-2022 ambulatory Timmybernardino Larsen Facility:[facility] Start: 06-26-2022 End: 06-26-2022 ambulatory MD Timmy Larsen Work Phone: [facility] Work Phone: Start: 06-26-2022 End: 06-26-2022 Patient encounter procedure MD Timmy Larsen Work Phone: [facility] [address] Start: 03-13-2021 End: 03-14-[address] DOCTOR QUINTANILLA Facility:[facility] Start: 12-09-2020 End: 12-09-2020 Refill CP Martin Dias Work Phone: [facility] Comment on above: Refill Request Start: 12-03-2020 End: 12-04-[address] DOCTOR QUINTANILLA Facility:[facility] Start: 11-04-2020 End: 11-05-[address] DOCTOR QUINTANILLA Facility:[facility] Procedures Date Procedure Procedure Detail Performing Clinician Start: 04-01-2025 Arthrocentesis aspir &/inj major jt/bursa w/o us Apolonia James DO Work Phone: Start: 03-25-2025 Arthrocentesis aspir &/inj major jt/bursa w/o us Apolonia James DO Work Phone: Start: 03-18-2025 Arthrocentesis aspir &/inj major jt/bursa w/o us Apolonia James DO Work Phone: Start: 02-16-2025 Arthrocentesis aspir &/inj major jt/bursa w/o us Apolonia James DO Work Phone: Start: 01-01-2025 Colonoscopy Apolonia ryan DO Work Phone: Start: 01-01-2025 Colonoscopy Vilma beatty Start: 04-21-2024 Oph bmtry prtl coher intrfrmtry [...] 01-01-2035 Screening for malignant neoplasm of colon [facility] Healthcare Start: 04-26-2025 Influenza vaccination Influenza Vaccine (#1) [facility] Start: 04-01-2025 End: 04-01-2025 Patient encounter procedure [facility] Start: 03-25-2025 End: 03-25-2025 Patient encounter procedure [facility] Comment on above: Osteoarthritis of right knee, unspecifie d osteoarthritis type (Primary Dx) Start: 03-18-2025 End: 03-18-2025 Patient encounter procedure 03/18/2025 8:30 AM EDT Procedure Visit [facility] [address] [place] [address] Apolonia James DO [address] [place], [place] [id number] Osteoarthritis of right knee, unspecified osteoarthritis type (Primary Dx) [facility] Comment on above: Osteoarthritis of right knee, unspecifie d osteoarthritis type (Primary Dx) Start: 01-11-2025 End: 01-11-2025 Patient encounter procedure 01/11/2025 1:30 PM EDT Office Visit [facility] [address] [place] [address] Kingsley Guido DPM [address] [facility] [address] [place] [address] [facility] Start: 12-24-2024 End: 12-24-2024 Patient encounter procedure 12/24/2024 8:50 AM EDT Office Visit [facility] [address] [facility] [address] [place] [phone] Kingsley Guido DPM [address] [address] [facility] Start: 12-18-2024 End: 12-18-2024 Patient encounter procedure 12/18/2024 8:30 AM EDT Office Visit [facility] [address] [place] [address] Apolonia James DO [address] [place] [address] [facility] Start: 12-10-2024 End: 12-10-2024 Patient encounter procedure 12/10/2024 8:40 AM EDT Office Visit [facility] [address] [phone] Kingsley Guido DPM [address] [address] Capsulitis of metatarsophalangeal (MTP) joint of left foot (Primary Dx); Capsulitis of metatarsophalangeal (MTP) joint of right foot; Verruca plantaris; Foot pain, right [facility] Comment on above: Capsulitis of metatarsophalangeal (MTP) joint of left foot (Primary Dx); Capsulitis of metatarsophalangeal (MTP) joint of right foot; Verruca plantaris; Foot pain, right Start: 11-12-2024 End: 11-12-2024 Patient encounter procedure 11/12/2024 8:40 AM EDT Office Visit [facility] [address] [phone] Kingsley Guido DPM [address] [address] Capsulitis of metatarsophalangeal (MTP) joint of left foot (Primary Dx); Capsulitis of metatarsophalangeal (MTP) joint of right foot; Verruca plantaris; Foot pain, right; Venous insufficiency [facility] Comment on above: Capsulitis of metatarsophalangeal (MTP) joint of left foot (Primary Dx); Capsulitis of metatarsophalangeal (MTP) joint of right foot; Verruca plantaris; Foot pain, right; Venous insufficiency Start: 04-26-2024 Influenza vaccination Influenza Vaccine (#1) [facility] Start: 04-21-2024 End: 04-21-2024 Patient encounter procedure 04/21/2024 10:15 AM EDT [facility] [address] [place] [phone] Elle Spivey MD [address] [place] [address] Arrived [facility] Comment on above: Arrived Start: 2022 Pneumococcal Vaccine: 65+ Years (2 of 2 - PCV) Pneumococcal Vaccine: 65+ Years (2 of 2 - PCV) [facility] Start: 04-26-2022 Influenza vaccination INFLUENZA (#1) [facility] Start: 08-26-2021 DEPRESSION ASSESSMENT DEPRESSION ASSESSMENT [facility] Start: 06-19-2020 Pneumococcal Vaccine: 65+ Years (2 of 2 - PCV) Pneumococcal Vaccine: 65+ Years (2 of 2 - PCV) [facility] Start: 11-19-2007 SHINGRIX VACCINE (1 of 2) SHINGRIX VACCINE (1 of 2) [facility] Start: 09-05-2005 LIPID SCREEN LIPID SCREEN [facility] Start: 05-12-2004 DIABETES SCREEN DIABETES SCREEN [facility] Start: 2002 COLOGUARD (FIT-DNA) COLOGUARD (FIT-DNA) [facility] Start: 2002 Colonoscopy COLONOSCOPY [facility] Start: 2002 COLORECTAL CANCER SCREENING COLORECTAL CANCER SCREENING [facility] Start: [address] COLONOGRAPHY [facility] Start: 2002 FECAL OCCULT BLOOD FECAL OCCULT BLOOD [facility] Start: 2002 SIGMOIDOSCOPY SIGMOIDOSCOPY [facility] Start: 1997 Mammography MAMMOGRAM [facility] Start: 1997 Screening for malignant neoplasm of breast Mammogram [facility] Start: 11-19-1987 HPV TESTING HPV TESTING [facility] Start: 1978 PAP TESTING PAP TESTING [facility] Start: 1976 Urine microalbumin profile DTAP,TDAP,TD (1 - Tdap) [facility] Start: 11-19-1975 HEPATITIS C SCREENING HEPATITIS C SCREENING [facility] Start: 11-19-1975 HIV SCREENING HIV SCREENING [facility] Start: 11-19-1963 PNEUMOCOCCAL (1 - PCV) PNEUMOCOCCAL (1 - PCV) [facility] Start: 05-21-1958 COVID-19 VACCINE (#1) COVID-19 VACCINE (#1) [facility] Start: 1957 Screening for malignant neoplasm of colon [facility] Immunizations Immunization Date Immunization Notes Care Provider Fa jeni 12-01-2024 influenza virus vacc ine, unspecified formulation Apolonia James DO Work Phone: [facility] 06-08-2021 influenza virus vacc ine, unspecified formulation Elle Spivey MD Work Phone: [facility] 12-05-2020 SARS-CoV-2 (COVID-19 ) Ad26 vaccine, recombinant Shaila Richard [facility] Comment on above: Result Comment: 2024: [id number] 06-03-2020 influenza virus vacc ine, unspecified formulation Shaila Richard [facility] 06-19-2019 influenza virus vacc ine, unspecified formulation Shaila Richard [facility] 06-19-2019 pneumococcal polysaccharide vaccine, 23 valent Shaila Richard [facility] Payers Date Payer Category Payer Blue [place] [employer] [id number] 2022 Unknown [id number] 2022 Self-pay 2020 Private Health Insurance [id number] 2019 Unknown [id number]. [id number] 1997 Private Health Insurance JAN DALY POS [id number] 1997-Present POS [id number]. [id number] 1959 Unknown [id number] 1957 Unknown [id number] 2.16.840.1.960826.3.579.2.59 3 1957 Unknown [id number] 2.16.840.1.729649.3.579.2.59 3 1957 Unknown [id number] 2.16.840.1.527489.3.579.2.59 3 1957 Unknown [id number] 2.16.840.1.160077.3.579.2.72 7 1957 Unknown [id number] 2.16.840.1.140715.3.579.2.72 7 1957 Unknown [id number] 2.16.840.1.914661.3.579.2.72 7 1957 Unknown [id number] 2.16.840.1.433872.3.579.2.72 7 1957 Unknown [id number] 2.16.840.1.215674.3.579.2.72 7 1957 Unknown [id number] 2.16.840.1.067058.3.579.2.12 59 1957 Unknown [id number] 2.16.840.1.786561.3.579.2.12 59 1957 Unknown [id number] 2.16.840.1.797533.3.579.2.12 59 1957 Unknown [id number] 2.16.840.1.559832.3.579.2.12 59 1957 Unknown [id number] 2.16.840.1.021362.3.579.2.12 59 1957 Unknown [id number] 2.16.840.1.413602.3.579.2.12 59 1957 Unknown [id number] 2.16.840.1.657902.3.579.2.12 59 1957 Unknown [id number] 2.16.840.1.799613.3.579.2.12 59 1957 Unknown [id number] 2.16.840.1.010492.3.579.2.12 59 1957 Unknown [id number] 2.16.840.1.950135.3.579.2.12 59 1957 Unknown [id number] 2.16.840.1.668613.3.579.2.12 59 Unknown [facility] [id number] Unknown [id number] [id number] 1 Social History Date Type Detail Facility [facility] Start: 1955 Sex Assigned At Not on file [facility] Start: 1955 Sex Assigned At Female F [facility] Start: 08-26-1990 End: 04-21-2024 Tobacco smoking status NHIS Smokes tobacco daily [facility] Work Phone: Start: 08-26-1990 History of tobacco use Cigarette Smo ker [facility] Work Phone: Start: 07-10-2022 End: 03-25-2025 Cigarettes smoked current (pack per day) - Reported 1 [facility] Start: 07-10-2022 End: 04-21-2024 Tobacco use and exposure Smokeless tobacco non-user [facility] Work Phone: Start: 11-15-2022 Alcohol intake Lifetime non-d jesus (finding) [facility] Start: 11-04-2020 End: 02-05-2025 Tobacco smoking status Light tobacco smoker (finding) [facility] Start: 04-11-2023 End: 03-25-2025 Sex Assigned At Female [facility] History of tobacco use Passive smoker [facility] Start: 05-02-2023 End: 04-01-2025 Alcoholic beverage intake Ex-drinker (finding) [facility] Start: 03-06-2023 Alcohol Comment caffeine 2-3 c ups per day [facility] Tobacco smoking status Never Oscar [facility] Sexual Orientation [facility] Start: 12-07-2009 Sex Female (finding) [facility] NEGATED: Highlighted rowStart: VERONIKAF History of tobacco use Passive smoker [facility] Work Phone: Functional Status Date Assessment Result Facility 01-01-2025 Functional Status N/A [facility] Clinical Notes 07-10-2022 to 04-01-2025 Yari Bhardwaj MA - 04/01/2025 8:00 AM Imtiaz Seymour MA - 03/25/2025 8:00 AM Ching James DO - 03/25/2025 8:00 AM Kriss Bhardwaj MA - 03/18/2025 8:30 AM EDT Note Date & Type Note Facility 04-01-2025 History of Present illness Narrative Associated Order(s): L Inj/Asp: R knee Post-Procedure Diagnose(s): Osteoarthritis of right knee, unspecified osteoarthritis type L Inj/Asp: R knee on 04/01/2025 8:26 AM Indications: pain Details: 21 G needle Medications: 2 mL sodium hyaluronate 16.8 MG/2ML Consent was given by the patient. documented in this encounter [facility] 03-25-2025 History of Present illness Narrative Associated Order(s): L Inj/Asp: R knee Post-Procedure Diagnose(s): Osteoarthritis of right knee, unspecified osteoarthritis type L Inj/Asp: R knee on 03/25/2025 7:57 AM Indications: diagnostic evaluation Medications: 2 mL sodium hyaluronate 16.8 MG/2ML Outcome: tolerated well, no immediate complications Consent was given by the patient. GelSYn 2 of 3 Injection Right knee Patient is seen and evaluated today for right knee pain and stiffness. Continued swelling and stiffness despite conservative course with ice, Tylenol, NSAID's and compression. Occasional buckle sensation. Did well with last weeks injection. Physical Exam: The patient is examined in the office today. The right knee has mild aseptic swelling. Hypertrophic changes are noted. AROM is decreased with pain. Crepitance is present in multiple compartments. Tenderness is moderate to severe thru multiple compartments. Collateral ligaments are intact to stress testing at 0 and 30 degrees. Positive grind test of the patella. Gait is stiff and antalgic with occasional assistive device reported. Hip exam is stable. Negative bench and straight leg raise testing. NVM intact distally without footdrop. Calves are supple without sign of infection, ulceration or DVT. Xrays: Multiple weightbearing views (AP, Lateral and sunrise) are reviewed for the permanent PACS record. Advanced grade 3-4 degenerative changes are present of the right knee. No fracture, dislocation, tumor or infection seen. Images are reviewed with the patient at length. Assessment: Right knee Osteoarthritis-M17.11 Right knee pain-M25.562 Antalgic gait-R26 Treatment/Plan: The nature of the findings were discussed at length. Xray imaging and severity discussed. Conservative management with ice, heat, exercise, strengthening, weight loss, compression wrap/bracing was reviewed. Anti-inflammatory medication , if stable with GI and kidney function, was reviewed. OTC and prescription options were discussed. Tylenol dosing parameters and daily limits for breakt thru pain was reviewed. Cortisone injections can be provided up to 3 per year and no closer than a month interval. Hyaluronic acid viscosupplementation options and expectations were discussed at length. Patient is aware results are not guaranteed. We discussed the role of knee replacement surgery, indications, approach, implants, and rehab process were all reviewed. After lengthy discussion, the patient elects to move forward with second viscosupplementation injection with GelSYn to the right knee. Under sterile technique with the knee extended and supported, 2 ml of GelSYn was injected to the right knee suprapatellar pouch. Needle was removed and adequate hemostasis was achieved. The patient tolerated the injection well. Post injection restriction of 50% activity reduction the day of the injection with icing techniques 1-2 times per 10-15 minutes to the knee was reviewed. Patient was ambulatory and discharged in stable condition. Any reactions, concerns or continued pain will be reported via phone call or return visit. All questions were answered. Follow-up next week for third right knee GelSyn injection. documented in this encounter [facility] 03-18-2025 History of Present illness Narrative Associated Order(s): L Inj/Asp: R knee Post-Procedure Diagnose(s): Osteoarthritis of right knee, unspecified osteoarthritis type L Inj/Asp: R knee on 03/18/2025 8:24 AM Indications: pain Details: 21 G needle Medications: 2 mL sodium hyaluronate 16.8 MG/2ML Consent was given by the patient. GelSYn 1 of 3 Injection Right knee Patient is seen and evaluated today for right knee pain and stiffness. Continued swelling and stiffness despite conservative course with ice, Tylenol, NSAID's and compression. Occasional buckle sensation. Night disruption is present and increasing. Progression of pain. Occasional assistive device required. Here today to review non-operative conservative options and discuss indications and overview of knee arthroplasty. Physical Exam: The patient is examined in the office today. The right knee has mild aseptic swelling. Hypertrophic changes are noted. AROM is decreased with pain. Crepitance is present in multiple compartments. Tenderness is moderate to severe thru multiple compartments. Collateral ligaments are intact to stress testing at 0 and 30 degrees. Positive grind test of the patella. Gait is stiff and antalgic with occasional assistive device reported. Hip exam is stable. Negative bench and straight leg raise testing. NVM intact distally without footdrop. Calves are supple without sign of infection, ulceration or DVT. Xrays: Multiple weightbearing views (AP, Lateral and sunrise) are reviewed for the permanent PACS record. Advanced grade 3-4 degenerative changes are present of the right knee. No fracture, dislocation, tumor or infection seen. Images are reviewed with the patient at length. Assessment: Right knee Osteoarthritis-M17.11 Right knee pain-M25.562 Antalgic gait-R26 Treatment/Plan: The nature of the findings were discussed at length. Xray imaging and severity discussed. Conservative management with ice, heat, exercise, strengthening, weight loss, compression wrap/bracing was reviewed. Anti-inflammatory medication , if stable with GI and kidney function, was reviewed. OTC and prescription options were discussed. Tylenol dosing parameters and daily limits for breakt thru pain was reviewed. Cortisone injections can be provided up to 3 per year and no closer than a month interval. Hyaluronic acid viscosupplementation options and expectations were discussed at length. Patient is aware results are not guaranteed. We discussed the role of knee replacement surgery, indications, approach, implants, and rehab process were all reviewed. After lengthy discussion, the patient elects to move forward with viscosupplementation injection with GelSYn to the right knee. Under sterile technique with the knee extended and supported, 2 ml of GelSyn was injected to the right knee suprapatellar pouch. Needle was removed and adequate hemostasis was achieved. The patient tolerated the injection well. Post injection restriction of 50% activity reduction the day of the injection with icing techniques 1-2 times per 10-15 minutes to the knee was reviewed. Patient was ambulatory and discharged in stable condition. Any reactions, concerns or continued pain will be reported via phone call or return visit. All questions were answered. Follow-up next week for second right knee GelSyn injection. documented in this encounter [facility] 02-16-2025 History of Present illness Narrative Associated [...] nabumetone (RELAFEN) 750 mg, 2 times daily Bbhpmvobhuq-Uckqkmwh-Xqiyidvkm 1-0.5-0.075 % solution 1 drop, Ophthalmic, 4 [...] non weight bearing films taken through the [facility] dated 11-30-2024 shows bone on bone disease [...] were discussed at length. We discussed the mcfp definitive indication for total knee replacement. The [...] ice and bracing. Fall precautions. Once again, salvage determiner definitive treatment of total knee replacement was [...] Up Care 01/08/2025 08:58:52 With:Jose Rafael LINDER, EKMAR Espinal, [facility] Address: [address] [place] [address], [address] [address] [phone] When: only if needed [facility] 01-01-2025 Evaluation + Plan note Extrac solomon from: Title:ANES Post-operative Note - General Author: Niall Zazueta Jr., DO Date:01/01/25 Plan Transfer/Discharge: Transfer/Discharge Discharge when meets criteria ( From PACU to Ambulatory Surgery Unit, and To home ). Extracted from: Title:1Preop H&P Author:Vilma Mantilla MD Date:01/01/25 Impression and Plan Impression: Colon polyps Plan: - Colonoscopy Extracted from: Title:SHELLIE Pre-operative Note - Endo Author:Niall Gutierrez Jr., DO Date:01/01/25 Plan [place] [employer] Anesthesiologists (ASA) physical status classification: Class III. Anesthetic Preoperative Plan: Anesthesia General, and -TIVA. [facility] 05-09-2025 Hospital Discharge instructions Patient Education 01/01/2025 09:57:47 [...] unsweetened, w/added ascorbic acid 1 cup 0.5 Likely 1 cup 0.7 Vegetables Cooked Green beans 1 cup 4.0 Carrots 1/2 cup sliced 2.3 Peas 1 cup 8.8 Potato (baked, with skin) 1 medium potato 3.8 Raw Dexter (with peel) 1 cucumber 1.5 Lettuce 1 [...] 8.7 Peanuts 1/2 cup 7.9 Chart from [facility] 2013. SEEK IMMEDIATE MEDICAL CARE IF: You [...] Reference. Available at http://www.nal.usda.gov/fnic/foodcomp/search/. Information adapted from: [facility] Patient Information 2010 [place] [facility]. [facility] http://www.FreeDrive/contents/ewxjznmxgsah-hfgxhjc-rqtgeu-the-basics 01/01/2025 09:57:39 Colon Polyps Colon Polyps Colon [...] hard liquor (44 mL). General instructions Take iamc-nis-ufhhedt and prescription medicines only as told by [...] provider. Document Revised: 11/30/2020 Document Reviewed: 11/30/2020 [employer] Patient Education 2023 [employer] 01/01/2025 09:57:38 Colonoscopy, Care After Surgery Salam [...] Up Care 11/23/2024 13:03:29 With:Vilma Mantilla Address: [address] [place], [place] [address] [place], [address] [phone] Business (1) When: Unknown Comments:Call for any problems. [facility] 05-09-2025 NoteProgress Note-Physician Patient: ASTON SEYMOUR Age: 69 years Sex: Female : 1955 Associated Diagnoses: None Author: Niall Zazueta Jr., DO Postoperative Information Postoperative disposition: Postoperative disposition: Home. Optimetrix number: Optimetrix number [id number]. Anesthetic utilized: General. Physical Examination Vital Signs [...] to Ambulatory Surgery Unit, and To home ).[facility]:Result Comment: Electronically Signed By: Niall Zazueta Jr., DO.denice\Date and Time Signed: 01/01/25 10:27 [id number] NotePatient Education - Text Diverticulosis Many people [...] unsweetened, w/added ascorbic acid 1 cup 0.5 Likely 1 cup 0.7 Vegetables Cooked Green beans 1 cup 4.0 Carrots 1/2 cup sliced 2.3 Peas 1 cup 8.8 Potato (baked, with skin) 1 medium potato 3.8 Raw Dexter (with peel) 1 cucumber 1.5 Lettuce 1 [...] 8.7 Peanuts 1/2 cup 7.9 Chart from [facility] 2013. SEEK IMMEDIATE MEDICAL CARE IF: You [...] Reference. Available at http://www.nal.usda.gov/fnic/foodcomp/search/. Information adapted from: [facility] Patient Information ???2009 [place] [facility]. [facility] 2012 http://www.uptodate.com/contents/qbqivwnbvhqn-sepwrpp-eeamwr-the-basics Colonoscopy Care After Surgery Please read the [...] by your doctor. Beg (more content not included)...[facility]05[facility] Note Endoscopic Procedure Report - Other Patient: ASTON SEYMOUR Age: 69 years Sex: Female : 1955 Associated Diagnoses: None Author: Vilma Mantilla MD Pre-Procedure Procedure Date 01/01/2025 09:45:00 . Procedure Type: Colonoscopy with removal of tumor(s), polyp(s), or other lesion(s) by cold snare technique. Procedure provider Performed by Vilma Mantilla MD. Current history and physical Reviewed. Colonoscopy ([id number]).. Past Medical History Resolved Hypertension (41859679): Resolved. Impaired fasting glucose (3723809883): Resolved. Depressed (976414599): Resolved.. Family History Primary malignant neoplasm of female breast Mother . Procedure History Colonoscopy ([id number]).. Colorectal neoplasm risk assessment High risk Previous [...] constipation, # 1,042 gram, Refills(s) 3, Pharmacy: [facility]/pharmacy #[id number], 172, cm, 11/23/24 8:31:00 EDT, Height/Length [...] 24 hours. Education and Follow-up: Counseled: Patient, Family.[facility] Comment on above:Result Comment: Electronically Signed By: Jose Rafael LINDER, Vilma Davis\.br\Date and Time Signed: 01/01/25 09:49 EDTOther Comment: Missing Attachment - attachment storage system not supported [id number] Can be viewed in source systemMissing Attachment - attachment storage system not supported [id number] Can be viewed insource systemMissing Attachment - attachment storage system not supported [id number] Can be viewed in source systemMissing Attachment - attachment storage system not supported [id number] Can be viewed in source systemMissing Attachment - attachment storage system not supported [id number] Can be viewed in source systemMissing Attachment - attachment storage system not supported [id number] Can be viewed in source systemMissing Attachment - attachment storage system not supported [id number] Can be viewed in source systemMissing Attachment - attachment storage system not supported 0693476 Can be viewed in source systemMissing Attachment - attachment storage system not supported [id number] Can be viewed in sourcesystemMissing Attachment - attachment storage system not supported 3262547 Can be viewed in source systemMissing Attachment - attachment storage system not supported [id number] Can be viewed in source sy stemMissing Attachment - attachment storage system not supported 6355088 Can be viewed in source [id number] NoteHistory and Physical Patient: ASTON SEYMOUR Age: [...] constipation, # 1,042 gram, Refills(s) 3, Pharmacy: [facility]/pharmacy #[id number], 172, cm, 11/23/24 8:31:00 EDT, Height/Length [...] list: All Problems Obesity / SNOMED CT [id number] / Confirmed Smoker / SNOMED CT 412380540 / Confirmed Added secondary to documentation in Social History. Gouty arthritis of left ankle / SNOMED CT 2634316456 / Confirmed Impaired fasting glycemia / SNOMED CT 0844455635 / Confirmed Verruca plantaris / SNOMED CT 974362484 / Confirmed Vascular insufficiency / SNOMED CT 105214098 / Confirmed Hyperlipidemia / SNOMED CT 21718518 / Confirmed History of colon polyps / SNOMED CT 7355063811 / Confirmed Diverticulosis / SNOMED CT 0048038462 / Confirmed Histories Past Medical History: Resolved Hypertension (79385325): Resolved. Impaired fasting glucose (9131822211): Resolved. Depressed (712437879): Resolved. Family History: Mother Primary malignant neoplasm of female breast Procedure history: Colonoscopy (663611508). Social History Social & Psychosocial Habits Tobacco 11/23/2024 Risk Assessment: High Risk 11/23/2024 Tobacco Use: 5-9 cigarettes (between 1 Smokeless tobacco use: Never Type: Cigarettes . Physical Examination Vital Signs (last 24 hrs) Last Charted Temp Temporal 36.3 DegC (JANUARY 01 08:15) Heart Rate Monitored 74 bpm (JANUARY 01:) SBP 111 mmHg (JANUARY 01:15) DBP 70 mmHg (JANUARY 01:) Weight 95.3 kg (JANUARY 01:) BMI 32.21 (JANUARY 01:) General: in Nad Abdomen: Soft, NTND Impression and Plan Impression: Colon polyps Plan: - [facility]oscopyHenry County HospitalComment on above:Result Comment: Electronically Signed By: Jose Rafael LINDER, Vilma Davis\.br\Date and Time Signed: 01/01/25 09:20 [id number] NoteProgress Note-Physician Patient: ASTON SEYMOUR Age: 69 [...] constipation, # 1,042 gram, Refills(s) 3, Pharmacy: [facility]/pharmacy #[id number], 172, cm, 11/23/24 8:31:00 EDT, Height/Length Dosing, 95.3, kg, 11/23/24 8:31:00 EDT, Weight Dosing NuLYTELY Likely oral powder for reconstitution: See Instructions, 1 EA, Refill(s) 0, follow up physicians insctructions, [facility]/pharmacy #[id number], 172, cm, 11/23/24 8:31:00 EDT, Height/Length [...] powder 3.4 gram, PRN, Oral, TID NuLYTELY Likely oral powder for reconstitution See Instructions , Medications (1) Active Scheduled: (0) Continuous: (1) Sodium Chloride 0.9% 1,000 mL 1,000 mL, IV, 20 mL/hr PRN: (0) Problem list: All Problems Diverticulosis / SNOMED CT 6973263043 / Confirmed Gouty arthritis of left ankle / SNOMED CT 7573708044 / Confirmed History of colon polyps / SNOMED CT 5870774999 / Confirmed Hyperlipidemia / SNOMED CT 53313214 / Confirmed Impaired fasting glycemia / SNOMED CT 4948501315 / Confirmed Obesity / SNOMED CT [id number] / Confirmed Smoker / SNOMED CT 621514110 / Confirmed Added secondary to documentation in Social History. Vascular insufficiency / SNOMED CT 543450624 / Confirmed Verruca plantaris / SNOMED CT 449769003 / Confirmed Resolved: Depressed / SNOMED CT 438783531 Resolved: Hypertension / SNOMED CT 17363348 Resolved: Impaired fasting glucose / SNOMED CT 1851280211 Histories Past Medical History: Resolved Hypertension (15996816): Resolved. Impaired fasting glucose (0729838786): Resolved. Depressed (546676534): Resolved. Procedure history: Colonoscopy (084101803). Social History Social & Psychosocial Habits Tobacco 11/23/2024 Risk Assessment: High Risk 11/23/2024 Tobacco Use: 5-9 cigarettes (between 1 Smokeless tobacco use: Never Type: Cigarettes . Physical Examination VS/Measurements Airway: Mallampati classification: II (soft palate, fauces, uvula visible). Respiratory: Lungs are clear to auscultation, Respirations are non-labored. Cardiovascular: Regular rhythm. Plan [place] [employer] of Anesthesiologists (ASA) physical status classification: Class III. Anesthetic Preoperative Plan: Anesthesia General, and -TIVA.[facility] HospitalComment on above:Result Comment: Electronically Signed By: Niall Zazueta Jr., DO.denice\Date and Time Signed: 01/01/25 08:12 [id number] History of Present illness Narrative* Kingsley Guido [...] as directed, Disp: 21 tablet, Rfl: 0 Uavkiaccddw-Ncrjrvyq-Qfeantrnn 1-0.5-0.075 % solution, Administer 1 drop into [...] DPM documented in this encounterNorth [facility] HospitalKvbbipiqbv35-12-7467 History of Present illness Narrative* Iesha Walker [...] Multiple Vitamins-Minerals (multivitamin with iron-minerals) liquid Daily Qlwaesqrnja-Vcjzaydr-Bcwyouzky 1-0.5-0.075 % solution 1 drop, Ophthalmic, 4 [...] are non weight bearing filmstaken through the [facility] dated 11-30-2024 shows bone on bone disease [...] EDT documented in this encounterNorth [facility] City HospitalLsxaovxwyx67-57-7581 History of Present illness Narrative* Kingsley Guido, DPM - 12/10/2024 8:40 AM EDT Patient: [...] as directed, Disp: 21 tablet, Rfl: 0 Pfiewtgocmc-Szfjomlp-Aprqwezbu 1-0.5-0.075 % solution, Administer 1 drop into [...] mm metatarsal pads and understands orthotics or trv-gv-ckwcrz cost today Patient to continue with oral [...] DPM documented in this encounterNorth [facility] City HospitalFcfmvcgjpl78-85-8109 History of Present illness Narrative* Kingsley Guido, DPM - 10/26/2024 10:50 AM EST Patient: [...] as directed, Disp: 21 tablet, Rfl: 0 Ubuvvvjpgvo-Xrdlkbqp-Hioebahsj 1-0.5-0.075 % solution, Administer 1 drop into [...] edema. Discussed condition in detail. Recommendation for hczh-cke-yodgmin compression stockings at this time and may consider prescription stockings in the future. Kingsley Guido DPM documented in this encounterNorth [facility] City HospitalHdpirrlmsc74-68-5271 History of Present illness Narrative* Elle Spivey MD - 04/21/2024 10:15 AM EDT Assessment/Plan Cataract, OU: Observe for now without intervention. The patient was advised to contact us if any change or worsening of vision documented in this [facility]11-15-2022 History of Present illness Narrative* Enrique Sam [...] dust, germs, chemicals, etc. documented in this encounterClerm[facility] HospitalEvaluation + Plan note No data available for this section [facility] note Future Appointments Appointment Date:01/01/2025 09:00:00 AM Scheduled Provider: Location:[facility] Appointment Type:Surgery FT [facility] Evaluation noteNo assessment information available [facility] Work Phone: Evaluation note* Diagnosis Combined forms of age-related cataract of both eyes- Primary Other and combined forms of senile cataract documented [facility]* Diagnosis Cortical age-related cataract of both eyes- Primary documented in this encounter [facility]* Diagnosis Capsulitis of metatarsophalangeal (MTP) joint of left foot- Primary Verruca plantaris Plantar wart Foot pain, right Pain in soft tissues of limb Venous insufficiency Unspecified venous (peripheral) insufficiency Capsulitis of metatarsophalangeal (MTP) joint of right foot Acute gout of left ankle, unspecified cause documented in this encounter [facility] HealthcareEvaluation note* Diagnosis Capsulitis of metatarsophalangeal (MTP) joint of left foot- Primary Capsulitis of metatarsophalangeal (MTP) joint of right foot Verruca plantaris Plantar wart Foot pain, right Pain in soft tissues of limb documented in this encounter [facility] HealthcareEvaluation note* Diagnosis Bilateral primary osteoarthritis of knee- Primary Capsulitis of metatarsophalangeal (MTP) joint of left foot- Primary Capsulitis of metatarsophalangeal (MTP) joint of right foot Verruca plantaris Plantar wart Foot pain, right Pain in soft tissues of limb documented in this encounter [facility] HealthcareEvaluation note* Diagnosis Capsulitis of metatarsophalangeal (MTP) joint of left foot- Primary Capsulitis of metatarsophalangeal (MTP) joint of right foot Verruca plantaris Plantar wart Foot pain, right Pain in soft tissues of limb documented in this encounter [facility] HealthcareEvaluation note* Diagnosis Bilateral primary osteoarthritis of knee- Primary documented in this encounter [facility]* Diagnosis Osteoarthritis of right knee, unspecified osteoarthritis type- Primary documented in this encounter [facility]* Diagnosis Osteoarthritis of right knee, unspecified osteoarthritis type- Primary [facility]* Diagnosis Osteoarthritis of right knee, unspecified osteoarthritis type- Primary documented in [facility] Discharge instructions No data available for this section [facility] HospitalProgress note No data available for this section [facility] Summary Purpose Family History No Family [...] or prosecute any alcohol or drug abuse patient.[facility] HospitalIn the event this information is protected by the Federal Confidentiality of Alcohol and Drug Abuse Patient Records regulations: The Federal rules restrict any use of the information to criminally investigate or prosecute any alcohol or drug abuse patient.[facility] Reason for Visit (unrecogniz ed section and content) Reason Comments Refill Request Reason Comments Cataract Evaluation Pt ref from Dr Tramaine tijerina for cat in the OS . Pt note sin the PM she sees 5 stars instead of 1. 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 Reason Comments Pain Reason Comments Follow-up Rt lesion check Reason Comments Osteoarthritis Reason Comments Injections Reason Comments Pain INFORMATION SOURCE (unrecogn ized section and content) DATE CREATED AUTHOR 03/19/2021 [facility] DATE CREATED AUTHOR AUTHOR'S ORGANIZ ATION 07/16/2022 [facility] DATE CREATED AUTHOR AUTHOR'S ORGANIZ ATION 01/06/2025 [facility] DATE CREATED AUTHOR AUTHOR'S ORGANIZ ATION 01/25/2025 [facility] DATE CREATED AUTHOR AUTHOR'S ORGANIZ ATION 02/13/2025 [facility] DATE CREATED AUTHOR AUTHOR'S ORGANIZ ATION 04/03/2025 [facility] DATE CREATED AUTHOR AUTHOR'S ORGANIZ ATION 04/19/2025 [facility] Care Teams (unrecognized sec tion and content) Team Status: Inactive Member Role Status Dates Timmy Lasren MD Attending Provider Active Glass Forming Engineer Relationship Specialty Start Date End Date Shaila Cordova DO [address] [place], [place] [phone] Referring Family Medicine 10/10/21 Glass Forming Engineer Relationship Specialty Start Date End Date Shaila Cordova MD [address] [place] [address] PCP - General Family Medicine 02/07/23 Glass Forming Engineer Relationship Specialty Start Date End Date Shaila Cordova MD [address] [place] [address] PCP - General Family Medicine 02/07/23 Glass Forming Engineer Relationship Specialty Start Date End Date Shaila Cordova MD [address] [place] [phone] PCP - General Family Medicine 02/07/23 Glass Forming Engineer Relationship Specialty Start Date End Date Shaila Cordova MD [address] [place] [address] PCP - General Family Medicine 02/07/23 Glass Forming Engineer Relationship Specialty Start Date End Date Shaila Cordova MD [address] [place] [address] PCP - General Family Medicine 02/07/23 Glass Forming Engineer Relationship Specialty Start Date End Date Shaila Cordova MD [address] [place] [phone] PCP - General Family Medicine 02/07/23 Glass Forming Engineer Relationship Specialty Start Date End Date Shaila Cordova MD [address] [place] [phone] PCP - General Family Medicine 02/07/23 Glass Forming Engineer Relationship Specialty Start Date End Date Shaila Cordova MD [address] [place] [phone] PCP - General Family Medicine 02/07/23 Glass Forming Engineer Relationship Specialty Start Date End Date Shaila Cordova MD [address] [place] [phone] PCP - General Family Medicine 02/07/23 Glass Forming Engineer Relationship Specialty Start Date End Date Shaila Cordova MD [address] [place] [phone] PCP - General Family Medicine 02/07/23 Glass Forming Engineer Relationship Specialty Start Date End Date Shaila Cordova MD [address] [place] [phone] PCP - [facility] 02/07/23 Glass Forming Engineer Relationship Specialty Start Date End Date Shaila Cordova MD [address] [place] [phone] PCP - [facility] 02/07/23 Glass Forming Engineer Relationship Specialty Start Date End Date Shaila Cordova MD [address] [place] [phone] PCP - [facility] 02/07/23 Glass Forming Engineer Relationship Specialty Start Date End Date Shaila Cordova MD [address] [place] [phone] PCP - [facility] 02/07/23 Goals (unrecognized section and content) Goals [...] BE BASED ON THE PRIMARY CLINICAL RECORDS. [employer] [facility]. provides no warranty or guarantee of the accuracy or completeness of information in this document.
--- NOTE | 2025-04-24 20:56 | ED_ITS ---
HPI - URI/Sore Throat General Chief Complaint: Upper Respiratory Infection Stated Complaint: EAR PAIN AND COUGH Time Seen by Provider: 04/24/25 20:36 Source: patient Limitations: no limitations History of Present Illness HPI Narrative: patient is hard of hearing . 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 Daily cigarette smoker. Ill for the past week. Seen by her PCP x2 this past week for sinus fullness and right ear pain as well as a repetitive cough. Prescribed Augmentin and cough syrup. Continues to cough frequently phuc when lying down and her abdomen is sore from coughing. Describes sinus pain behind both eyes. No vision changes . No chest pain . cough is dry. No fever or nausea Related Data Home Medications ?Medication ?Instructions ?Recorded ?Confirmed alendronate 35 mg tablet mg PO 04/24/25 amlodipine 5 mg tablet mg 04/24/25 amoxicillin 875 mg-potassium tab 04/24/25 clavulanate 125 mg tablet clotrimazole-betamethasone 1 applic topical 04/24/25 %-0.05 % topical cream etodolac 500 mg tablet mg 04/24/25 guaifenesin 600 mg tablet, 600 mg PO BID PRN congestio n 04/24/25 04/24/25 extended release 12 hr leflunomide 20 mg tablet mg 04/24/25 prednisone 20 mg tablet 20 mg PO DAILY 04/24/2503/28 Allergies Allergy/AdvReac Type Severity Reaction Status Date / Time codeine Allergy sensitive Verified 04/24/25 20:34 Review of Systems ROS Status of ROS 10 or more systems reviewed and unremark able except as noted in history and below Exam Constitutional Vital Signs, click to edit/add: Last Vital Signs Temp 97.8 F 04/24/25 20:29 Pulse 78 04/24/25 22:58 Resp 20 04/24/25 22:58 BP 161/93 H 04/24/25 22:58 Pulse Ox 95 04/24/25 22:58 O2 Del Method Room Air 04/24/25 21:19 Common normals: no apparent distress, average body habitus, oriented x3, no limitations, healthy appearing, alert and well nourished [facility] Common normals: normocephalic and head/scalp atraumatic Other: right TM retracted and dull and appears to have fluid in the middle ear Eye Common normals: EOMs intact bilaterally and conjunctivae normal Chest Common normals: inspection of chest normal Respiratory Common normals: normal respiratory effort and clear to auscultation bilaterally Other: chest clear but deep breath causes repetitive cough Cardio Common normals: regular rate, regular rhythm, S1 normal heart sound and S2 normal heart sound GI Common normals: soft to palpation and non-tender Inspection: normal to inspection Extremity Common normals: normal to inspection and full ROM Neuro Common normals: oriented x3, moves all extremities and no focal motor deficits Psych Appearance: grossly normal Course Vital Signs Vital signs: Vital Signs Temperature 97.8 F 04/24/25 20:29 Pulse Rate 88 04/24/25 20:29 Respiratory Rate 18 04/24/25 20:29 Blood Pressure 151/87 H 04/24/25 20:29 Pulse Oximetry 96 04/24/25 20:29 Oxygen Delivery Method Room Air 04/24/25 20:29 Temperature 97.8 F 04/24/25 20:29 Pulse Rate 78 04/24/25 22:58 Respiratory Rate 20 04/24/25 22:58 Blood Pressure 161/93 H 04/24/25 22:58 Pulse Oximetry 95 04/24/25 22:58 Oxygen Delivery Method Room Air 04/24/25 21:19 MDM - URI/Sore Throat MDM Narrative Medical decision making narrative: presents with right ear pain and sinus pain as well as a cough for past week. Daily cigarette smoker. Not short of breath but frequent dry coughing jags . right TM retracted with fluid behind the drum. CT sinuses without acute findings. Cxray per my review with what appears to be some scarring of the left pleura. I do not see definite infiltrate. Patient informed of the plan to change her antibiotics and provide an inhaler to help with her cough. She is to follow up with her doctor next week. She is informed of my preliminary reading of her cxray Lab Data Labs: Lab Results 04/24/25 Range/Units 21:17 WBC 8.8 (4.0-11.0) 10^3/uL RBC 4.85 (4.20-5.40) 10^6/uL Hgb 14.1 (12.0-16.0) g/dL Hct 43.6 (36.0-48.0) % MCV 89.9 (81.0-99.0) fL MCH 29.1 (26.7-34.0) pg MCHC 32.3 (29.9-35.2) g/dL RDW 14.4 (11.0-15.0) % Plt Count 235 (150-450) 10^3/uL MPV 10.4 (9.5-13.5) fL Neut % (Auto) 56.2 (43.0-75.0) % Lymph % (Auto) 33.1 (20.5-60.0) % [place] % (Auto) 9.1 (1.7-12.0) % Eos % (Auto) 0.7 L (0.9-7.0) % Baso % (Auto) 0.3 (0.2-2.0) % Neut # (Auto) 5.0 (1.4-6.5) 10^3/uL Lymph # (Auto) 2.9 (1.2-3.8) 10^3/uL [place] # (Auto) 0.8 (0.3-0.8) 10^3/uL Eos # (Auto) 0.1 (0.0-0.7) 10^3/uL Baso # (Auto) 0.0 (0.0-0.1) 10^3/uL Abs Immat Gran (auto) 0.05 H (0.00-0.03) 10^3/uL Imm/Tot Granulo (auto) 0.6 H (0.0-0.5) % Sodium 144 (136-145) mmol/L Potassium 3.6 (3.5-5.1) mmol/L Chloride 106 (98-107) mmol/L Carbon Dioxide 26.3 (21.0-32.0) mmol/L Anion Gap 15.3 BUN 17.0 (7.0-18.0) mg/dL Creatinine 0.68 (0.55-1.02) mg/dL Est GFR ( Amer) >60 (>=60 mL/min/1.73m^2) Est GFR (Non-Af Amer) >60 (>=60 mL/min/1.73m^2) BUN/Creatinine Ratio 25.0 Glucose 119 H (74-106) mg/dL Lactate 2.0 (0.4-2.0) mmol/L Calcium 8.6 (8.5-10.1) mg/dL Total Bilirubin 0.2 (0.2-1.0) mg/dL AST 13 L (15-37) U/L ALT 27 (14-59) U/L Alkaline Phosphatase 106 (46-116) U/L Total Protein 6.9 (6.4-8.2) g/dL Albumin 3.4 (3.4-5.0) g/dL Globulin 3.5 g/dL Albumin/Globulin Ratio 1.0 Lipase 27.0 (16.0-77.0) U/L Discharge Plan Discharge Chief Complaint: Upper Respiratory Infection Clinical Impression: COPD exacerbation, Acute right otitis media Patient Disposition: Home, Self-Care Prescriptions / Home Meds: No Action amlodipine 5 mg tablet leflunomide 20 mg tablet alendronate 35 mg tablet PO clotrimazole-betamethasone 1-0.05 % cream TOPICAL etodolac 500 mg tablet amoxicillin-pot clavulanate 875-125 mg tablet prednisone 20 mg tablet 20 mg PO DAILY Rx Instructions: days 11-21 of therapy guaifenesin 600 mg tablet extended release 12hr 600 mg PO BID PRN (Reason: congestion) Print Language: Danish Instructions: How to Use a Metered-Dose Inhaler (ED), Ear Infection (ED), Bronchospasm (ED) Additional Instructions: discontinue Augmentin. Follow up with your doctor next week for recheck Referrals: Abigail Cordova DO [Primary Care Provider] - 1 week
[2025-04-24] MEDS: METHYLPREDNISOLONE SOD SUCC PF 125 MG/2 ML VIAL IVP (21:14)
[2025-04-24] MEDS: IPRATROPIUM/ALBUTEROL SULFATE 3 ML AMPUL.NEB IH (21:16)
[2025-04-24 21:19] VITALS: PULSE 80; O2SAT 95
[2025-04-24 21:30] LABS: Hematocrit 43.6 % (36.0-48.0); Hemoglobin 14.1 g/dL (12.0-16.0); Immature Granulocytes Abs Auto 0.05 10^3/uL (0.00-0.03); Immature Granulocytes Pct Auto 0.6 % (0.0-0.5); Lymphocytes Absolute Auto 2.9 10^3/uL (1.2-3.8); Mean Corpuscular HGB Conc 32.3 g/dL (29.9-35.2); Mean Corpuscular Hemoglobin 29.1 pg (26.7-34.0); Mean Corpuscular Volume 89.9 fL (81.0-99.0); Platelet Count 235 10^3/uL (150-450); Red Blood Count 4.85 10^6/uL (4.20-5.40); White Blood Count 8.8 10^3/uL (4.0-11.0)
[2025-04-24 21:48] LABS: Alanine Aminotransferase 27 U/L (14-59); Albumin Globulin Ratio 1.0; Albumin Level 3.4 g/dL (3.4-5.0); Alkaline Phosphatase 106 U/L (46-116); Anion Gap 15.3; Aspartate Amino Transferase 13 U/L (15-37); Blood Urea Nitrogen 17.0 mg/dL (7.0-18.0); Calcium 8.6 mg/dL (8.5-10.1); Carbon Dioxide 26.3 mmol/L (21.0-32.0); Chloride 106 mmol/L (98-107); Estimated GFR (African America >60 (>=60 mL/min/1.73m^2); Estimated GFR (Non-African Ame >60 (>=60 mL/min/1.73m^2); Globulin 3.5 g/dL; Glucose 119 mg/dL (74-106); Lipase 27.0 U/L (16.0-77.0); Potassium 3.6 mmol/L (3.5-5.1); Sodium 144 mmol/L (136-145); Total Protein 6.9 g/dL (6.4-8.2)
[2025-04-24 21:50] LABS: Lactate/Lactic Acid 2.0 mmol/L (0.4-2.0)
[2025-04-24 22:58] VITALS: BP 161/93; PULSE 78; O2SAT 95
[2025-04-25] MEDS: AZITHROMYCIN 250 MG TABLET 500 MG PO (00:44)
[2025-04-25] MEDS: ALBUTEROL SULFATE 200 PUFF/6.7 GM INHALER IH (00:44)
== END 2025-04-25 00:52 | disposition home or self-care (01) ==
PROVIDERS: Emergency Provider Internal Medicine; PCP Family Medicine
DX: J44.1 Chronic obstructive pulmonary disease with (acute) exacerbation (principal); H66.91 Otitis media, unspecified, right ear; H91.90 Unspecified hearing loss, unspecified ear; F17.210 Nicotine dependence, cigarettes, uncomplicated
CPT/HCPCS: 36415; 70486; 71046; 80053; 83605; 83690; 85025; 94640; 96374; 99285; J2919

== ENCOUNTER 2025-08-10 02:48 | Emergency (ER) | payer OTHER, BC, SELFPAY ==
[2025-08-10 02:53] VITALS: BP 162/94; PULSE 101; TEMP 36.8; O2SAT 96; BMI 31.9
--- NOTE | 2025-08-10 03:16 | ED_ITS ---
HPI - Wound/Laceration General Chief Complaint: Wound/Laceration Stated Complaint: CUT RIGHT HAND INDEX FINGER Time Seen by Provider: 08/10/25 03:11 Source: patient Mode of arrival: walk-in Limitations: no limitations History of Present Illness HPI narrative: cut left index with a knife at work just [employer]. neg numbness of finger weakness. No other injury or complaint Related Data Home Medications ?Medication ?Instructions ?Recorded ?Confirmed alendronate 35 mg tablet mg PO 04/24/25 amlodipine 5 mg tablet mg 04/24/25 amoxicillin 875 mg-potassium tab 04/24/25 clavulanate 125 mg tablet clotrimazole-betamethasone 1 applic topical 04/24/25 %-0.05 % topical cream etodolac 500 mg tablet mg 04/24/25 guaifenesin 600 mg tablet, 600 mg PO BID PRN congestio n 04/24/25 04/24/25 extended release 12 hr leflunomide 20 mg tablet mg 04/24/25 prednisone 20 mg tablet 20 mg PO DAILY 04/24/2503/28 Allergies Allergy/AdvReac Type Severity Reaction Status Date / Time codeine Allergy sensitive Verified 08/10/25 02:56 Review of Systems ROS Status of ROS 10 or more systems reviewed and unremark able except as noted in history and below PFSH PFSH Social History Little interest or pleasure in doing things: not at all Feeling down, depressed, or hopeless: not at all Exam Constitutional Vital Signs, click to edit/add: Last Vital Signs Temp 98.3 F 08/10/25 02:53 Pulse 101 H 08/10/25 02:53 Resp 20 08/10/25 02:53 BP 162/94 H 08/10/25 02:53 Pulse Ox 96 08/10/25 02:53 O2 Del Method Room Air 08/10/25 02:53 Common normals: no apparent distress, average body habitus, oriented x3, no limitations, healthy appearing, alert and well nourished [facility] Common normals: normocephalic and head/scalp atraumatic Eye Common normals: PERRL and EOMs intact bilaterally Respiratory Common normals: normal respiratory effort, no retractions, no use of accessory muscles and clear to auscultation bilaterally Cardio Common normals: regular rate, regular rhythm, S1 normal heart sound and S2 normal heart sound GI Common normals: Normal to inspection, nondistended, normoactive bowel sounds present and soft to palpation Extremity Other: superficial lac left index finger at PIP joint. No swelling or active bleeding . N/V intact Neuro Common normals: oriented x3, CN's II-XII intact bilaterally, moves all extremities and no focal motor deficits Psych Appearance: grossly normal Course Vital Signs Vital signs: Vital Signs Temperature 98.3 F 08/10/25 02:53 Pulse Rate 101 H 08/10/25 02:53 Respiratory Rate 20 08/10/25 02:53 Blood Pressure 162/94 H 08/10/25 02:53 Pulse Oximetry 96 08/10/25 02:53 Oxygen Delivery Method Room Air 08/10/25 02:53 Temperature 98.3 F 08/10/25 02:53 Pulse Rate 101 H 08/10/25 02:53 Respiratory Rate 20 08/10/25 02:53 Blood Pressure 162/94 H 08/10/25 02:53 Pulse Oximetry 96 08/10/25 02:53 Oxygen Delivery Method Room Air 08/10/25 02:53 MDM - Wound/Laceration MDM Narrative Medical decision making narrative: presents from work with minor lac left index finger. lac closed without incident. Patient discharged home to follow up with industrial medicine Discharge Plan Discharge Chief Complaint: Wound/Laceration Clinical Impression: Laceration of left index finger Patient Disposition: Home, Self-Care Prescriptions / Home Meds: No Action amlodipine 5 mg tablet leflunomide 20 mg tablet alendronate 35 mg tablet PO clotrimazole-betamethasone 1-0.05 % cream TOPICAL etodolac 500 mg tablet amoxicillin-pot clavulanate 875-125 mg tablet prednisone 20 mg tablet 20 mg PO DAILY Rx Instructions: days 11-21 of therapy guaifenesin 600 mg tablet extended release 12hr 600 mg PO BID PRN (Reason: congestion) Print Language: New Zealander Instructions: Laceration (ED) Additional Instructions: Will needt to follow up with your employer regarding drug or alcohol testing. Follow up with Industrial medicine in 2 days for recheck. Have stitches removed in 10 days by PCP. Referrals: Abigail Cordova DO [Primary Care Provider] - 1 week Discharge Date/Time: 08/10/25 03:57 Procedures ED Procedure Instructions Procedures Procedures: lac left index finger. 12mm superficial lac. 1% lido as a local. Site cleaned with betadine and rinsed with saline. No FB seen. Closed with # 4.0 prolene stitches. 3 stitches
[2025-08-10] MEDS: LIDOCAINE HCL 1% 100 MG/10 ML MDV INJ (03:30)
--- OUTSIDE RECORDS SUMMARY | 2025-08-10 03:37 | XMS_ITS | Clinical Summary ---
Author Organization [facility] Address [address] [place] [id number] Care Team Providers Care Electronic Funds Transfer Coordinator Name Role Phone Abiagil Cordova DO Unavailable [phone] Abigail Cordova DO Unavailable [phone] Allergies Active AllergyReactionsCriticalityNoted DateCommentsCephalexinOther: See Myxnylhj26/15/2022 Yeast infection PenicillinsOther: See Yqzxeorq03/15/2022 FLU Medications MedicationSigDispense QuantityRefillsLast FilledStart DateEnd DateStatus bromfenac (BROMSITE) 0.075 % drop Use 1 Drop in the right eye twice daily. 1 Bottle ctive Gatifloxacin 0.5 % drop Use 1 Drop in the right eye four times daily. 1 Bottle ctive Difluprednate (DUREZOL) 0.05 % Use 1 Drop in the right eye four times daily. 1 Bottle ctive clopidogrel bisulfate (CLOPIDOGREL ORAL) Take by mouth.Active pravastatin sodium (PRAVASTATIN ORAL) Take by mouth.Active BENZONATATE ORAL Take by mouth.Active risperidone (RISPERDAL ORAL) Take by mouth.Active memantine HCl (MEMANTINE ORAL) Take by mouth.Active venlafaxine HCl (VENLAFAXINE ORAL) Take by mouth.Active fluticasone/umeclidin/vilanter (TRELEGY ELLIPTA INHALATION) Inhale as instructed.Active Family History Medical HistoryRelationCommentsHypertensionBrotherDiabetesSisterotherSister RelationStatusCommentsBrotherSister Social History Tobacco UseTypesPacks/DayYears UsedDateSmoking Tobacco: Every DayCigarettes Passive Smoke Exposure: NeverSmokeless Tobacco: Never Tobacco Cessation:Ready to Q uit: Not Asked; Counseling Given: Not Answered Alcohol UseStandard Drinks/WeekCommentsNever0 (1 standard drink = 0.6 oz pure alcohol)CommentsUnknownSex and Gender InformationValueDate RecordedSex Assigned at BirthNot on fileLegal UtwIflymr03/02/2012 9:36 AM ESTGender Identity Not on fileSexual OrientationNot on file Plan of Treatment Health MaintenanceDue DateLast DoneCommentsAnxiety Gscifgogf31/26/1976Depression Ngfzhdetj79/26/1976Hepatitis C Ynlosygfv01/26/1976DTaP,Tdap,Td Vaccine (1 - Tdap)1976Mammogram Otguaxfgh35/26/1998CT Wljwkfbaoxic90/26/2003Cologuard (FIT-DNA)11/18/20021301Xulirgrerll24/26/2003Colorectal Cancer Dlhngbelw41/26/2003 Fecal Occult Blood11/18/20027823Cxojisyjnxymr07/26/2003Diabetes Ntuudczej19/17/2004 05/12/2001, 04/11/2001, 03/14/2001, Additional history existsLipid Screening Pneumococcal Vaccine: 50+ (1 of 1 - PCV)11/19/2007Shingrix Vaccine (1 of 2)11/19/2007one Density Gjrhpnokz04/26/2023dvance Directive Fqfwnboiwx18/01/2025ovid-19 Vaccine (1 - season)2025Influenza Vaccine (#1)2025RSV Vaccine (1 - 1-dose 75+ series)2032 Procedures Procedure NamePriorityDate/TimeAssociated DiagnosisCommentsCOMPREHENSIVE METABOLIC PANEL05/12/2001 2:25 PM EDT LIPID PANEL, BXDBKVW5609/05/2000 5:23 PM EST from Last 3 Months or Most Recently Relevant to Health Maintenance Results * (ABNORMAL) COMP CHEMISTRY PKG (05/12/2001 2:25 PM EDT)ComponentValueRef Range Test MethodAnalysis TimePerformed AtPathologist SignatureProtein, Total7.16.0 - 8.4 g/dLMARY [facility] LABAlbumin4.23.5 - 5.0 g/dLMARY [facility] Calcium9.68.5 - 10.5 mg/dL[facility] LABBilirubin, Total0.30.0 - 1.5 mg/dL[facility] LABAlkaline Rcvxthgpqef5799 - 120 U/[facility] NFROYU373 - 40 U/[facility] FEEUthepho7520 - 110 mg/dL[facility] QFMBLL871 - 25 mg/dLMARY [facility] LABCreatinine0.80.7 - 1.4 mg/dL[facility] RAWVpmjsk506580 - 148 mmol/LC[facility] LABPotassium4.43.5 - 5.0 mmol/[facility] WHWGktwryju33552 - 110 mmol/LC[facility] HNKKF552 (A)24 - 32 mmol/LC[facility] LABAnion Osx481 - 15 mmol/LC[facility] ZNIRUW64 - 45 U/LC[facility] LABSpecimen (Source)Anatomical Location / LateralityCollection Method / VolumeCollection TimeReceived Time05/12/2001 2:25 PM EDT Narrative Authorizing ProviderResult TypeResult StatusSet Cosmo LINDERLABORATORYFinal Result Performing OrganizationAddressCity/State/ZIP CodePhone Number [facility] [address] [place] [address] * (ABNORMAL) LIPID PANEL BASIC (09/05/2000 5:23 PM EST)ComponentValueRef Range Test MethodAnalysis TimePerformed AtPathologist XtangnfupYiqhipyjxgah7064 - 199 mg/dLMARY [facility] LABComment:Borderline Risk: 200 - 399 High Risk: >399Cholesterol, Bhzob427058 - 199 mg/dLMARY [facility]ITAL LABComment:Borderline Risk: 200 - 239 High Risk: >239HDL Vbgqkufnasq29(A)>55 mg/dLMARY [facility] LABComment:Borderline Risk: 36 - 55 High Risk: <36VLDL Abagrkbdvlq382 - 40 mg/dLMARY [facility] LABComment:Borderline Risk: 41 - 79 High Risk: >79LDL Cholesterol, Ifgvenysvt72096 - 129 mg/dLMARY [facility] LABComment:Borderline Risk: 130 - 159 High Risk: >159Fasting Pivp05jasPEWECZZCE CLINIC LABTC:HDL Ratio4.31[facility] LABComment:08[address]: [address]: [address]: 11[address]04LDL:HDL Ratio2.86[facility] LABComment:[address]: [address]: 6[address]14Specimen (Source)Anatomical Location / Laterality Collection Method / VolumeCollection TimeReceived Time09/05/2000 5:23 PM EST Narrative Authorizing ProviderResult TypeResult StatusMarcos Bear MDLABORATORYFinal Result Performing OrganizationAddressCity/State/ZIP CodePhone Number [facility] [address] [place] [address] from Last 3 Months or Most Recently Relevant to Health Maintenance Insurance * Guarantor: Aamir Seymour TypeRelation to PatientDate of BirthPhone Billing AddressPersonal/IdecdlRvuy37/26/1956 [address] [address] * Guarantor: Aamir Seymour TypeRelation to PatientDate of BirthPhone Billing BqhkyyeKuwlggQkjg31/26/1956 [address] [place] [address] Care Teams Team MemberRelationshipSpecialtyStart DateEnd Date Abigail Cordova DO [address] [place] [address] ReferringFamily Medicine10/10/21 Abigail Cordova DO [address] [place] [address] Referring TeamFamily Medicine04/29/25
--- OUTSIDE RECORDS SUMMARY | 2025-08-10 03:37 | XMS_ITS | Clinical Summary ---
Author Organization [facility] Address [address] [place] [address] Phone Care Team Providers Care Dandy Tender Name Role Phone Abigail Cordova Primary Care Provider [phone] Encounters DateTypeDepartmentCare ShyfGjupurrvloh03/29/2025Telephone [facility] OTOLARYNGOLOGY VIRTUAL [address] [place] [address] Aurelia Bonner MD from Last 3 Months Social History Tobacco UseTypesPacks/DayYears UsedDateSmoking Tobacco: Never Assessed CommentsUnknownSex and Gender InformationValueDate RecordedSex Assigned at Not on fileLegal OrhEbijyz30/25/2022 8:32 PM ESTGender IdentityNot on fileSexual OrientationNot on file Plan of Treatment DateTypeDepartmentCare Team (Latest Contact Info)Nahigrkozyu63/19/2026 2:15 PM ESTOffice Visit [facility] [address] [place] [address] Aurelia Bonner MD [address] [place], [place] [id number] Health MaintenanceDue DateLast DoneCommentsCT Mllnydaisour43/26/1958FIT-DNA (Cologuard)1957FIT1957Lipid Panel1957 8340Wdxrnnjztphmc29/26/1956 Yearly Adult Imhekbgw06/26/1958MMR Vaccines (1 of 1 - Standard series)1958 Diabetes Nfbvwdqcg22/26/1976Hepatitis C Yxuzljanw31/26/4434Llcffjtot28/26/1998 Bone Density Scan2022Influenza Vaccine (#1)504/03/2025, 06/08/2021, 06/03/2020, Additional history existsCOVID-19 Vaccine (2 - 2024- season)504/1Pneumococcal Vaccine (2 of 2 - PCV)12/04/2025 12/04/2024, 06/19/2019RSV High Risk: (Elderly (60+) or Population) (1 - 1-dose 75+ series)3DTaP/Tdap/Td Vaccines (2 - Td or Tdap)12/01/2034 9331Rxwpuuoocwc13/09/203505/5Colorectal Cancer Vgszfsydd12/09/2035 Zoster HullqdseAwlknevxb24/14/2025, 12/04/2024HIB VaccinesAged OutNo longer eligible based on patient's age to complete this topicHPV VaccinesAged OutNo longer eligible based on patient's age to complete this topicHepatitis A VaccinesAged OutNo longer eligible based on patient's age to complete this topic Hepatitis B VaccinesAged OutNo longer eligible based on patient's age to complete this topicIPV VaccinesAged OutNo longer eligible based on patient's age to complete this topicMeningococcal VaccineAged OutNo longer eligible based on patient's age to complete this topicRotavirus VaccinesAged OutNo longer eligible based on patient's age to complete this topic Insurance MemberSubscriberPlan / Payer (Effective 2023-Present)Name:Gogo Seymour Relation to Subscriber:SelfName:Gogo Seymour Payer ID:[id number] ([facility]) Type:Not on file Address: [address] * Guarantor: Gogo Seymour TypeRelation to PatientDate of BirthPhone Billing AddressPersonal/SpkjwdOpto31/26/1956 [address] [place] [address] * Guarantor: Gogo Seymour TypeRelation to PatientDate of BirthPhone Billing AddressPersonal/SkxfozHvmg94/26/1956 [facility] [place] [address] Care Teams Team MemberRelationshipSpecialtyStart DateEnd Date Abigail Cordova DO [address] [place] [address] [facility]12/02/20
--- OUTSIDE RECORDS SUMMARY | 2025-08-10 03:37 | XMS_ITS | Patient Health Record ---
Author Organization [facility] Address [address] [address], [place] [address] Care Team Providers Care Cigarette Making Machine Catcher Name Role Phone Kirk Womack Unavailable [phone] Allergies Allergen (clinical drug ingredient) Drug/Non Drug Allergy documented on EMR Reaction Allergy Type Onset Date Status codeine Codeine Unknown Drug Allergy Active Reason For Referral No Information Medications Medication SIG (Take, Route, Frequency, Duration) Notes Start Date End Date Status Etodolac 500 MG Tablet Oral; Duration: 15 Days ActiveLeflunomide 20 MG TabletOral; Duration: 90 DaysActiveNail Fungus Compound Terbinafine 2%, ibuprofen 2%, urea 10% in DMSO Compound SolutionApply to affected toe nail(s) [place] on nail(s) Twice daily; Duration: 90 days02/12/2025 5ActiveAlendronate Sodium 35 MG TabletPLEASE SEE ATTACHED FOR DETAILED DIRECTIONS Oral; Duration: 84 DaysActiveCalciumActiveamLODIPine Besylate 5 MG TabletTAKE 1 TABLET BY MOUTH EVERY DAY Oral; Duration: 30 DaysActiveVitamin D3 Active Social History Section Notes: Patient state they are a current smoker. No alcohol use. Patient state they are a current smoker. No alcohol use. Patient state they are a current smoker. No alcohol use. Encounters Encounter Location Date Provider Diagnosis [employer] 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 ; Hallux limitus of left foot M20.5X2 ; Tinea pedis, left B35.3 ; Hammertoe of left foot M20.42 ; Cigarette smoker F17.210 and PAD (peripheral artery disease) I73.9 [facility], [facility] [address] [address], [place] [address] 04/16/2025 Kirk Womack Predislocation syndr ome of metatarsophalangeal joint of left foot M25.872 ; Closed dislocation of toe of left foot, sequela S93.105S ; Hammertoe of left foot M20.42 ; Hallux limitus of left foot M20.5X2 ; Tinea pedis, left B35.3 and Onychomycosis B35.1 Assessments Encounter Date Diagnosis (ICD Code) Assessment Notes Treatment Notes Treatment Clinical Notes Section Notes 02/12/2025 Hammertoe of left foot (ICD-10 - M20.42) Patient reports worsening pain and deformity of 2nd toe. Previous treatments, including toe spacers, PO steroids, etodolac/ibuprofen which were ineffective. - Xray ordered and will be evaluated at f/u - Consider anti-inflammatory medications for symptom relief. - Discuss potential physical therapy options, topical Voltaren, RICE therapy and toe spacer/sleeve 02/12/2025Onychomycosis (ICD-10 - B35.1) Patient reports thick toenail, which does get ingrown from time to time. Exploring options for managing toenail fungus, including topical treatments and toenail removal. - Consider topical antifungal treatment. Prescription sent to [facility] - Discuss potential toenail removal if conservative measures fail. 03/12/2025Predislocation syndrome of metatarsophalangeal joint of left foot (ICD-10 - M25.872)03/12/2025losed dislocation of toe of left foot, sequela (ICD-10 - S93.105S) Gogo is unfortunately no better after being under the care with Dr. Guido for many months as wellas me for the last month. Over the last 6 months she has attempted shoe and activity modification, PO steroids, PO etodolac and topical voltaren, multiple toe spacers and splints as well as cross over taping. Her 2nd and 3rd toes are reducible but I am concerned of plantar plate tear. Therefore, given her failure to respond to nonsurgical care I recommended an MRI for surgical planning and further evaluation of articular structures of the 1st, 2nd and 3rd toes. Her great toe has reduced ROM and on xray demonstrates joint space narrowing. MRI will help determine if fusion vs cheilectomy is best option for her as well as if plantar plate repair is necessary. Xrays also demonstract subluxation of the 2nd & 3rd MPJs and midfoot DJD. No fracture or acute bony abnormality. 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 I had a long discussion with her reguarding surgical and nonsurgical treatments. Specifically I discussed 1st MPJ fusion, 2nd Mg osteotomy, and correction of 2nd toe deformity with pinning. Specific complications that could potentially occur were discussed in detail which included wound/dehiscence, infection, pain, bleeding, numbness/tingling, DVT/PE, swelling and need for additional surgery. Additional complications discussed included nonunion, delayed union, malunion and painful hardware. Postoperative course was discussed including weight bearing status: heel wb only x3wks She would require 3-4 months off work therefore would require FMLA which she is going to discuss with her employer. She will call next week after she considers her options. 5Closed dislocation of toe of left foot, sequela (ICD-10 - S93.105S) 04/16/2025Hammertoe of left foot (ICD-10 - M20.42)03/12/2025Hallux limitus of left foot (ICD-10 - M20.5X2)5Closed dislocation of toe of left foot, sequela (ICD-10 - S93.105S) Chronic dislocation and probable planar plate tear found on examination. Cross over taping with 1/4inch silk tape was performed while demonstrating to patient how to perform this on a daily basis. Monitor skin for irritation. MRI may be considered at f/u pending xray findings and response the taping and other conservative treatments discussed today. 03/12/2025Tinea pedis, left (ICD-10 - B35.3)Recommended wearing socks with shoes (which she is not doing currently). Wash well between toes anddry well. Use OTC athletes foot spray and prescribed Lotrisone to apply BID.04/16/2025Hallux limitus of left foot (ICD-10 - M20.5X2)02/12/2025Porokeratosis (ICD-10 - Q82.8) lesion trimmed with #10 blade without incident. Recommended daily use of pumice stone and tuumevktjdt75/18/2025Hammertoe of left foot (ICD-10 - M20.42) 04/16/2025Tinea pedis, left (ICD-10 - B35.3)02/12/2025Predislocation syndrome of metatarsophalangeal joint of left foot (ICD-10 - M25.872)03/12/2025igarette smoker (ICD-10 - F17.210)I also ordered ABIs/TBIs given long standing smoking history. Patient currently smokes daily and I discussed how her smoking will affect tissue healing in her foot. She was encouraged to cut back andultimatley quit especially if she is considering surgery. 5 minutes was spent discussing this with Gogo in direct face to face contact.04/16/2025Onychomycosis (ICD-10 - B35.1) Patient may consider chemical matrixectomy as in office procedure as vascular studies show good healing potential. If she decides to have the toenail fixed prior to surgery it should be done at least4-6 weeks before planned date of surgery. I spend >25 minutes in direct face to face contact with Gogo in evaluation, management and discussing risks/benefits of treatment options 03/12/2025PAD (peripheral artery disease) (ICD-10 - I73.9)04/16/2025Other Noninvasive vascular studies were reviewed: Right Leg SONU 1.19 TBI 1.14 Left Leg SONU 1.15 TBI .74 Plan Of Treatment No Information Insurance Providers Payer Name Payer Address Payer Phone Subscriber Number Group Number Insured Name Patient Relationship to Insured Coverage Start Date Coverage End Date [facility] [address] [place] [phone] [id number] Jerri Seymour - patient is the insured Medical (General) History Medical History History ICD Code Arthritis High Blood PressureOsteoporosisSurgical History Surgery Date(Month/Year) Left Eye Defect
--- OUTSIDE RECORDS SUMMARY | 2025-08-10 03:37 | XMS_ITS | Clinical Summary ---
Author Organization [facility] Address [address] [facility] [place] [address] Care Team Providers Care Nascar Driver Name Role Phone Abigail Cordova MD Primary Care Provider [phone] Allergies Active AllergyReactionsCriticalityNoted LhryMlffrizbIedrttbfxxAebfxha07/15/2022 Yeast infection GwstnkvGclsEjc13/08/0989LzdqtfyaxiwThqrplr51/15/2022 FLU Medications MedicationSigDispense QuantityRefillsLast FilledStart DateEnd DateStatus alendronate (Fosamax) 35 MG tablet Take 35 mg by mouth every 7 (seven) days12/21/2022ctive leflunomide (Arava) 20 MG tablet Take 20 mg by mouth Daily01/16/2023ctive lisinopril 20 MG tablet Take 20 mg by mouth Daily07/10/2022ctive celecoxib (CeleBREX) 200 MG capsule Take 200 mg by mouth in the morning and 200 mg before bedtime.01/09/2024ctive lisinopril 40 MG tablet Take 40 mg by mouth Daily04/16/2024ctive Jzedtxmhagh-Zzpczjou-Airuvnjvy 1-0.5-0.075 % solution Indications:Cortical age-related cataract of both eyesAdminister 1 drop into affected eye(s) in the morning and 1 drop at noon and 1 drop in the evening and 1 drop before bedtime. 10 mL ctive cholecalciferol (Vitamin D-3) 50 MCG (1999) capsule Vitamin DActive Multiple Vitamins-Minerals (multivitamin with iron-minerals) liquid Take by mouth DailyActive etodolac (Lodine) 500 MG tablet Take 500 mg by mouth in the morning and 500 mg before bedtime.5Active amLODIPine (Norvasc) 5 MG tablet Take 5 mg by mouth Daily12/05/2024tive nabumetone (Relafen) 750 MG tablet Take 750 mg by mouth in the morning and 750 mg before bedtime.11/24/2024tive Hospital, Clinic, or Other Facility Administered MedicationOrdered DoseRoute FrequencyStart DateEnd DateStatus iopamidol (Isovue-300) 61 % injection 100 mL Indications:Conductive hearing loss of right ear with restricted hearing of left ktb022 mLIVOnce in eswvqmg9806/15/2025tive Active Problems No known active problems Resolved Problems ProblemNoted DateDiagnosed DateResolved DateCurrent mgbzni19 Overview (05/04/2025): Added secondary to documentation in Social History. Qsjsgsifdbtrdm66Gouty arthritis of left ankle05/04/2025 05/04/2025History of colon ioaxev12Hyperlipidemia05/04/2025 05/04/2025Impaired fasting wkamodd29Obesity05/04/2025 05/04/2025Peripheral venous ygarpqndubezu41Primary localized osteoarthrosis of ankle and footVerruca qjvmjukjc83/09/2025 05/04/2025 Encounters DateTypeDepartmentCare MaplXugseidhprr74/31/2025Telephone [facility] [address] [place] [phone] Lyssa Leos RN R knee pain06/18/2025Telephone [facility] [address] [place] [phone] Keisha Kiran MA 06/17/2025 9:00 AM EDTOffice Visit [facility] [address] [place] [address] Rick Parks, DO Mixed conductive and sensorineural hearing loss of right ear with restricted hearing of left ear (Primary Dx); Perforation of right tympanic vggftjof01/23/2025amboo flowsheet [facility] [address] [place] [address] Rick Parks S, DO 06/17/20251832Fslbmw06/21/2025 10:45 AM EDTOffice Visit [facility] [address] [place] [phone] Andrey Yousif, DO Mixed conductive and sensorineural hearing loss of right ear with restricted hearing of left ear (Primary Dx); Chronic maxillary srufxeurd56/21/2025 9:45 AM EDTAncillary Procedure [facility] [address] [place] [phone] Pain (Primary Dx); Conductive hearing loss of right ear with restricted hearing of left ear 06/15/20258590Gsaooo75/30/2025 8:00 AM EDTOffice Visit [facility] [address] [place] [phone] Andrey Yousif, DO History of myringotomy (Primary Dx); Conductive hearing loss of right ear with restricted hearing of left ear 05/25/20254213Zxseuc23/29/2025 8:30 AM EDTOffice Visit [facility] [address] [place] [address] Cristina Cordero, AUD Mixed conductive and sensorineural hearing loss of right ear with restricted hearing of left ear (Primary Dx); ETD (Eustachian tube dysfunction), right05/24/2025amboo flowsheet [facility] [address] [place] [place] [phone] Cristina Cordero, AUD 05/18/2025 8:00 AM EDTOffice Visit [facility] [address] [facility] [place] [address] Andrey Yousif, DO Non-recurrent acute serous otitis media of right ear05/18/2025amboo flowsheet [facility] [address] [facility] [place] [address] Andrey Yousif, DO 05/18/20252731Hlfikm37/18/2025 9:45 AM EDTClinical Support [facility] [address] [place] [address] Idania Rahman, CCC-A Conductive hearing loss of right ear with restricted hearing of left ear (Primary Dx); Non-recurrent acute serous otitis media of right ear05/13/2025amb flowsheet [facility] [address] [place] [address] Idania Rahman CCC-A from Last 3 Months Immunizations ImmunizationAdministration DatesNext DueInfluenza, High Dose Seasonal, Preservative Free12/01/2024Influenza, Dcirzfwozad70/09/2020Influenza, injectable, MDCK, preservative free, wmycvrxtkqod86/14/2021Influenza, injectable, quadrivalent, preservative free06/19/2019Pneumococcal Polysaccharide GUYG7624Pneumococcal conjugate vaccine, 21 valent (PCV21), polysaccharide EOM637 conjugate, preservative free12/04/2024Tdap12/01/2024 Zoster, Jnuqkzuhdqj96/14/2025,12/04/2024 Family History Medical HistoryRelationNameCommentsDiabetesFatherHypertensionFatherNo Known ProblemsMaternal GrandfatherNo Known ProblemsMaternal GrandmotherCancerMotherNo Known ProblemsPaternal GrandfatherNo Known ProblemsPaternal GrandmotherRelation NameStatusCommentsFatherAliveMaternal GrandfatherDeceasedMaternal Grandmother DeceasedMotherAlivePaternal GrandfatherDeceasedPaternal GrandmotherDeceased Social History Tobacco UseTypesPacks/DayYears UsedDateSmoking Tobacco: Every DayCigarettes Started: 1990Passive Smoke Exposure: CurrentSmokeless Tobacco: Never Tobacco Cessation:Ready to Q uit: Not Asked; Counseling Given: Not Answered Alcohol UseStandard Drinks/WeekCommentsNot Currently0 (1 standard drink = 0.6 oz pure alcohol)caffeine 2-3 cups per dayCommentsUnknownSex and Gender InformationValueDate RecordedSex Assigned at BirthNot on fileLegal SexFemale 11/07/2022 6:38 PM EDTGender IdentityNot on fileSexual OrientationNot on file Last Filed Vital Signs Vital SignReadingTime TakenCommentsBlood Mrfyaakn243/7403 8:45 AM EDT Xgwyc949411/12/2024 8:45 AM EDTTemperature--Respiratory Kvhv347201/14/2025 8:57 AM EDTOxygen Saturation--Inhaled Oxygen Concentration--Twjprd28.3 kg (210 lb) 06/17/2025 8:49 AM UKORnzfps081.7 cm (5' 8 )06/17/2025 8:49 AM EDTBody Mass Index31.9306/17/2025 8:49 AM EDT Plan of Treatment Health MaintenanceDue DateLast DoneCommentsCT Dyzxvocryefr76/26/1958FIT-DNA 1957FIT1957FOBT1957 8293Gjhkfbufcwapf68/26/6320Whqpmcbhx94/26/1998 COVID-19 Vaccine ( season)5012/01/2024, 12/05/2020Influenza Vaccine (#1)/03/2025, 06/08/2021, 06/03/2020, Additional history cuvrffQhwqddcbtio00/09/203505/olorectal Cancer Armtrruhs61/09/2035 Pneumococcal Vaccine: 65+ XuasrVrweeftrt97/11/2025, 06/19/2019 Procedures Procedure NamePriorityDate/TimeAssociated DiagnosisCommentsCT INTERNAL AUDITORY CANALS/POSTERIOR FOSSA W AND WO IV SRYCXUPTSTDY17/21/2025 10:23 AM EDT Conductive hearing loss of right ear with restricted hearing of left ear AUDITORY FUNCTION ONBGKAotqzix47/29/2025 9:13 AM EDT AUDITORY FUNCTION BXKPILipcrhb63/18/2025 2:49 PM EDT from Last 3 Months Results * CT internal auditory canals/posterior fossa w and wo IV contrast (06/15/2025 10:23 AM EDT)Anatomical RegionLateralityModalityHead, NeckComputed Tomography Specimen (Source)Anatomical Location / LateralityCollection Method / Volume Collection TimeReceived Time06/15/2025 11:40 AM EDT Impressions 06/15/2025 11:51 AM EDT 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 NO DISCRETE MASS, FOCAL BONE DESTRUCTION OR ABNORMAL ENHANCEMENT IDENTIFIED. MAXILLARY SINUS OPACIFICATION, NOTED. ELECTRONICALLY SIGNED BY: Juan Cespedes MD Narrative 06/15/2025 11:51 AM EDT EXAM: CT INTERNAL AUDITORY CANALS/POSTERIOR FOSSA W AND WO IV CONTRAST DATE: 06/15/2025 10:00 AM CLINICAL HISTORY: ??cholesteatoma. COMPARISON: ??None available. TECHNIQUE: Spiral imaging was obtained of the skull base before and after the uneventful infusion of approximately 100 mL of Isovue [address] scans at this facility use dose modulation, iterative reconstruction, and/or weight based dosing when appropriate to reduce radiation dose to as low as reasonably achievable. 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 No discrete mass, focal bone destruction, or abnormal enhancement identified. The right mastoid process, middle ear cavity, right auditory ossicles, tympanic membrane, both internal auditory canals, both cochleae and semicircular canals appear within normal limits. Chronic-appearing moderate mucosal thickening within the inferior right maxillary sinus, and mild mucosal thickening posterior left maxillary sinus. The other visualized paranasal sinuses are clear. The orbits appear within normal limits. Procedure Note Juan Cespedes MD - 06/15/2025 EXAM: CT INTERNAL AUDITORY CANALS/POSTERIOR FOSSA W AND WO IV CONTRAST DATE: 06/15/2025 10:00 AM CLINICAL HISTORY: cholesteatoma. COMPARISON: None available. TECHNIQUE: Spiral imaging was obtained of the skull base before and afterthe uneventful infusion of approximately 100 mL of Isovue [address] scans at this facility use dose modulation, iterativereconstruction, and/or weight based dosing when appropriate to reduceradiation dose to as low as reasonably achievable. 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 Nodiscrete mass, focal bone destruction, or abnormal enhancementidentified. The right mastoid process, middle ear cavity, right auditory ossicles,tympanic membrane, both internal auditory canals, both cochleae andsemicircular canals appear within normal limits. Chronic-appearing moderate mucosal thickening within the inferior rightmaxillary sinus, and mild mucosal thickening posterior left maxillarysinus. The other visualized paranasal sinuses are clear. The orbits appearwithin normal limits. IMPRESSION: CHRONIC PROBABLY DEVELOPMENTAL LEFT MASTOID AND MIDDLE EAR CAVITYHYPOPLASIA, DESCRIBED. NO DISCRETE MASS, FOCAL BONE DESTRUCTION OR ABNORMAL ENHANCEMENTIDENTIFIED. MAXILLARY SINUS OPACIFICATION, NOTED. ELECTRONICALLY SIGNED BY: Juan Cespedes MD Authorizing ProviderResult TypeResult StatusBenbenedicto Lewis Murshank DOI CT PROCEDURESFinal Result * Auditory function tests (05/24/2025 9:13 AM EDT) Cristina De Guzman AUD - 05/24/2025 9:13 AM EDT [employer] [facility] indicated a moderately-severe to severe mixed hearing loss in the right ear. These results are consistent with previous results recorded 05-13-2025. Unable to mask BC, due to physical limitations. Authorizing ProviderResult TypeResult Raza Cordero AUDAUDIOLOGY SERVICES ORDERABLESFinal Result * Auditory function tests (05/13/2025 2:49 PM EDT) Narrative Idania Rahman, [facility] - 05/13/2025 2:49 PM EDT Right Ear: Moderate to severe conductive hearing loss Authorizing ProviderResult TypeResult StatusDekei Rahman [facility]AAUDIOLOGY SERVICES ORDERABLESFinal Result from Last 3 Months Insurance Care Teams Team MemberRelationshipSpecialtyStart DateEnd Abigail Cordova MD [address] [place] [phone] PCP - GeneralFamily Medicine02/07/23
== END 2025-08-10 03:57 | disposition home or self-care (01) ==
PROVIDERS: Emergency Provider Internal Medicine; PCP Family Medicine
DX: S61.211A Laceration without foreign body of left index finger without damage to nail, initial encounter (principal); W26.0XXA Contact with knife, initial encounter
CPT/HCPCS: 12001; 99282